=== PATIENT | male | born 1970 | race Caucasian/White ===

== ENCOUNTER 2023-08-28 16:21 | Outpatient (OUT) | payer BC, SELFPAY ==
--- NOTE | 2023-08-28 | XR_ITS ---
The [address] [address] Patient Name: NARENDRA MEDEROS MRN: [id number] date: 1970 Sex: M Assigned Patient Location: LAB Current Patient Location: LAB Accession/Order Number: [id number] Exam Date: 08/28/2023 17:12 Report Date: 08/28/2023 17:45 At the request of: SHALONDA CARLOS Procedure: XR chest 2V EXAM: XR chest 2V HISTORY: asthma . Acute dyspnea. COMPARISON: 03/01/2023 TECHNIQUE: Upright PA and lateral chest x-ray FINDINGS: The heart is not enlarged and the vasculature is not distended. No acute infiltrate, effusion or pneumothorax is identified. The osseous structures are grossly intact. XR/XR chest 2V IMPRESSION: No acute infiltrate or evidence of cardiac decompensation. The overall appearance of the chest is essentially unchanged. Electronically authenticated by: HERMES SNYDER Date: 08/28/2023 17:45
[2023-08-28 16:49] LABS: Basophils Absolute Auto 0.1 10^3/uL (0.0-0.1); Basophils Percent Auto 0.6 % (0.2-2.0); Eosinophils Absolute Auto 0.1 10^3/uL (0.0-0.7); Hematocrit 48.9 % (42.0-54.0); Hemoglobin 16.1 g/dL (14.0-18.0); Immature Granulocytes Abs Auto 0.02 10^3/uL (0.00-0.03); Immature Granulocytes Pct Auto 0.2 % (0.0-0.5); Lymphocytes Absolute Auto 0.9 10^3/uL (1.2-3.8); Lymphocytes Percent Auto 8.6 % (20.5-60.0); Mean Corpuscular HGB Conc 32.9 g/dL (29.9-35.2); Mean Corpuscular Hemoglobin 31.4 pg (25.9-34.0); Mean Corpuscular Volume 95.3 fL (80.0-94.0); Monocytes Absolute Auto 0.4 10^3/uL (0.3-0.8); Monocytes Percent Auto 3.7 % (1.7-12.0); Neutrophils Absolute Auto 8.5 10^3/uL (1.4-6.5); Neutrophils Percent Auto 85.9 % (43.0-75.0); Platelet Count 340 10^3/uL (150-450); Red Blood Count 5.13 10^6/uL (4.70-6.10); Red Cell Distribution Width 12.4 % (11.0-15.0); White Blood Count 9.9 10^3/uL (4.0-11.0)
[2023-08-28 16:50] LABS: Bilirubin Urine NEGATIVE (NEGATIVE); Blood Urine NEGATIVE (NEGATIVE); Clarity Urine CLEAR (CLEAR); Color Urine YELLOW (YELLOW); Glucose Urine UA NEGATIVE (NEGATIVE); Ketones Urine TRACE mg/dL (NEGATIVE); Leukocyte Esterase Urine NEGATIVE (NEGATIVE); Nitrite Urine NEGATIVE (NEGATIVE); Protein Urine NEGATIVE (NEG/TRACE); Urobilinogen Urine 0.2 EU/dL (0.2-1.0)
[2023-08-28 17:25] LABS: Alanine Aminotransferase 46 U/L (16-63); Albumin Globulin Ratio 1.1; Alkaline Phosphatase 74 U/L (46-116); Amylase 41 U/L (25-115); Aspartate Amino Transferase 23 U/L (15-37); Bilirubin Total 0.2 mg/dL (0.2-1.0); Calcium 9.1 mg/dL (8.5-10.1); Carbon Dioxide 29.1 mmol/L (21.0-32.0); Chloride 103 mmol/L (98-107); Estimated GFR (African America >60 (>=60); Estimated GFR (Non-African Ame >60 (>=60); Globulin 3.5 g/dL; Glucose 116 mg/dL (74-106); Potassium 4.1 mmol/L (3.5-5.1); Sodium 139 mmol/L (136-145); Total Protein 7.5 g/dL (6.4-8.2)
[2023-08-28 17:29] LABS: Bacteria Urine NONE SEEN #/HPF (NONE SEEN); Mucus Urine TRACE (NONE SEEN); WBC Urine NONE SEEN #/HPF (NONE SEEN)
[2023-08-28 17:30] LABS: Cast Seen? NONE SEEN #/LPF (NONE SEEN); Crystals Seen? None Seen #/HPF (None Seen); RBC Urine 0-2 #/HPF (0-2); Squamous Epithelial Cell Urine NONE SEEN #/LPF (NONE/RARE)
== END 2023-08-28 16:22 | disposition home or self-care (01) ==
PROVIDERS: PCP Family Medicine; Visit Provider Family Medicine
DX: J45.909 Unspecified asthma, uncomplicated (principal); R10.9 Unspecified abdominal pain
CPT/HCPCS: 36415; 71046; 80053; 81001; 82150; 83690; 85025; 87086

== ENCOUNTER 2023-08-29 16:40 | Outpatient (OUT) | payer BC, SELFPAY ==
[2023-09-01 11:08] LABS: H. pylori Stool Ag, EIA Negative (Negative)
== END 2023-08-29 16:41 | disposition home or self-care (01) ==
LOC: LAB 16:40
PROVIDERS: PCP Family Medicine; Visit Provider Family Medicine
DX: J45.909 Unspecified asthma, uncomplicated (principal); R10.9 Unspecified abdominal pain
CPT/HCPCS: 87338

== ENCOUNTER 2024-09-24 10:56 | Outpatient (OUT) | payer BC, SELFPAY ==
--- NOTE | 2024-09-24 11:28 | XR_ITS ---
The [address] [address] Patient Name: KAIT MEDEROS MRN: [id number] date: 1970 Sex: M Assigned Patient Location: [facility] Current Patient Location: Accession/Order Number: [id number] Exam Date: 09/24/2024 11:20 Report Date: 09/25/2024 07:52 At the request of: JOAN PAINTER Procedure: XR chest 2V EXAMINATION: XR chest 2V HISTORY: Bronchitis J40 COMPARISON: 08/28/2023 TECHNIQUE: PA and lateral FINDINGS: LUNGS: No significant pulmonary parenchymal abnormalities. VASCULATURE: No increased pulmonary vasculature. PLEURA: No pneumothorax, effusion, or pleural thickening. CARDIAC: No cardiomegaly or cardiac silhouette abnormality. MEDIASTINUM: No visible mass or adenopathy. BONES: No fracture or visible bone lesion. OTHER: Negative. XR/XR chest 2V IMPRESSION: No acute cardiopulmonary process Electronically authenticated by: QUOC OWENS Date: 09/25/2024 07:52
== END 2024-09-24 10:57 | disposition home or self-care (01) ==
LOC: RAD 10:59
PROVIDERS: PCP Family Medicine; Visit Provider Nurse Practitioner Family
DX: J40 Bronchitis, not specified as acute or chronic (principal)
CPT/HCPCS: 71046

== ENCOUNTER 2024-10-09 20:11 | Emergency (ER) | payer BC, SELFPAY ==
[2024-10-09 20:16] VITALS: BP 140/72; PULSE 106; TEMP 36.7; O2SAT 98; BMI 26.9
--- OUTSIDE RECORDS SUMMARY | 2024-10-09 20:31 | XMS_ITS | CCD ---
Author Organization [facility] Care Team Providers Care Supervisor [employer] Name Role Phone TERRANCE ., DR LIZ Primary Care Unavailable HOY ., DR LIZ Consulting Unavailable HOY ., DR LIZ Attending Unavailable HOY ., DR LIZ Admitting Unavailable ALYSSA ., LEIF Consulting Unavailable SUBHA, ALEKSANDR Consulting Unavailable KLQUOC MCCALL Consulting Unavailable HOY ., DR LIZ Primary Care Unavailable HOY ., DR LIZ Consulting Unavailable HOY ., DR LIZ Attending Unavailable HOY ., DR LIZ Admitting Unavailable WEST, DR QUOC Oh Consulting Unavailable MARKER ., DR MALHOTRA Admitting Unavailable MARKER ., DR MALHOTRA Consulting Unavailable MARKER ., DR MALHOTRA Attending Unavailable HOY ., DR LIZ Primary Care Unavailable UNLU, EDMUNDO Consulting Unavailable SUBHA, ALEKSANDR Admitting Unavailable SUBHA, ALEKSANDR Consulting Unavailable SUBHAALEKSANDR Attending Unavailable HOY ., DR LIZ Primary Care Unavailable QUOC MALDONADO Consulting Unavailable Allergies Allergy Classification Reported Allergen(s) Allergy Type Date of Onset Reaction(s) Facility (1 source) Erythromycin Drug Allergy 4 [facility] Repository (1 source) Oxytetracycline Drug Allergy 4 [facility] Problems Active Problems Problem Classification Problem Date Documented Date Episodic/Chronic Asthma (1 source) Unspecified asthma, uncomplicated; Translations: [UNSPECIFIED ASTHMA UNCOMPLICATED] Onset: 11-15-2022 Chronic Attention-deficit, conduct, and disruptive behavior disorders (1 source) Attention-deficit hyperactivity disorder, unspecified type; Translations: [ADHD UNSPECIFIED TYPE] Onset: 11-15-2022 Chronic Substance-related disorders (1 source) Nicotine dependence, chewing tobacco, uncomplicated; Translations: [NICOTINE DEPEND CHEW TOBACCO UNCOMP] Onset: 11-15-2022 Chronic Unclassified (1 source) CONTACT W/AND (SUSP) EXPOS COVID-19; Translations: [CONTACT W/AND (SUSP) EXPOS COVID-19] Onset: 11-15-2022 Unclassified (3 sources) LOW BACK PAIN, UNSPECIFIED; Translations: [LOW BACK PAIN, UNSPECIFIED] Onset: 04-20-2022 Past or Other Problems Problem Classification Problem Date Documented Da te Episodic/Chronic Acute bronchitis (1 source) Acute bronchitis, unspecified; Translations: [ACUTE BRONCHITIS UNSPECIFIED] Onset: 11-15-2022 Episodic Other aftercare (1 source) Other rn long term care (current) drug therapy; Translations: [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] Onset: 11-15-2022 Episodic Other lower respiratory disease (3 sources) Shortness of breath; Translations: [SHORTNESS OF BREATH] Onset: 11-11-2022 Episodic Screening and history of mental health and substance abuse codes (1 source) Personal history of nicotine dependence; Translations: [PERSONAL HISTORY OF NICOTINE DEPEND] Onset: 04-07-2022 Episodic Unclassified (1 source) LOW BACK PAIN, UNSPECIFIED; Translations: [LOW BACK PAIN, UNSPECIFIED] Onset: 04-14-2022 Results Test Name Value Interpretation Reference Range Facility BNPon 03-02-2023 Natriuretic peptide B (Bld) [Mass/Vol] 8.0 pg/mL Normal <=900.0 [facility] Comment on above: Performed By: #### B REVIEW ENGINEER, HSTROPN, BMP #### [facility] [address] [place] [address] Dr. Celeste Art CBC AUTO DIFFon 03-02-2023 BASO # 0.1 103/ul Normal 0.0-0.1 [facility] Comment on above: Performed By: #### C BC #### [facility] [address] [place] [address] Dr. Celeste Art Basophils/100 WBC (Bld) 1.1 % Normal 0.2-2.0 [facility] Comment on above: Performed By: #### C BC #### [facility] [address] [place] [address] Dr. Celeste Art EO # 0.8 103/ul Critically high 0.0-0.7 [facility] Comment on above: Performed By: #### C BC #### [facility] [address] [place] [address] Dr. Celeste Art Eosinophils/100 WBC (Bld) 10.8 % Critically high 0.9-7.0 [facility] Comment on above: Performed By: #### C BC #### [facility] [address] [place] [address] Dr. Celeste Art Erythrocyte distribution width (RBC) [Ratio] 12.4 % Normal 11.0-15.0 [facility] Comment on above: Performed By: #### C BC #### [facility] [address] [place] [address] Dr. Celeste Art Hematocrit (Bld) [Volume fraction] 44.5 % Normal 42.0-54.0 [facility] Comment on above: Performed By: #### C BC #### [facility] [address] [place] [address] Dr. Celeste Art Hemoglobin (Bld) [Mass/Vol] 14.7 g/dL Normal 14.0-18.0 [facility] Comment on above: Performed By: #### C BC #### [facility] [address] [place] [address] Dr. Celeste Art IG # 0.01 10e3/ul Normal 0.00-0.03 [facility] Comment on above: Performed By: #### C BC #### [facility] [address] [place] [address] Dr. Celeste Art IG % 0.1 % Normal 0.0-0.5 [facility] Comment on above: Performed By: #### C BC #### [facility] [address] [place] [address] Dr. Celeste Art LYMPH # 3.4 103/ul Normal 1.2-3.8 [facility] Comment on above: Performed By: #### C BC #### [facility] [address] [place] [address] Dr. Celeste Art Lymphocytes/100 WBC (Bld) 45.3 % Normal 20.5-60.0 [facility] Comment on above: Performed By: #### C BC #### [facility] [address] [place] [address] Dr. Celeste Art MANUAL DIFF REQ NO Normal [facility] Comment on above: Performed By: #### C BC #### [facility] [address] [place] [address] Dr. Celeste Art MCH (RBC) [Entitic mass] 30.6 pg Normal 25.9-34.0 [facility] Comment on above: Performed By: #### C BC #### [facility] [address] [place] [address] Dr. Celeste Art MCHC (RBC) [Mass/Vol] 33.0 g/dL Normal 29.9-35.2 [facility] Comment on above: Performed By: #### C BC #### [facility] [address] [place] [address] Dr. Celeste Art MCV (RBC) [Entitic vol] 92.7 fL Normal 80.0-94.0 [facility] Comment on above: Performed By: #### C BC #### [facility] [address] [place] [address] Dr. Celeste Art MONO # 0.6 103/ul Normal 0.3-0.8 [facility] Comment on above: Performed By: #### C BC #### [facility] [address] [place] [address] Dr. Celeste Art Monocytes/100 WBC (Bld) 8.5 % Normal 1.7-12.0 [facility] Comment on above: Performed By: #### C BC #### [facility] [address] [place] [address] Dr. Celeste Art NEUT # 2.5 103/ul Normal 1.4-6.5 [facility] Comment on above: Performed By: #### C BC #### [facility] [address] [place] [address] Dr. Celeste Art Neutrophils/100 WBC (Bld) 34.2 % Critically low 43.0-75.0 [facility] Comment on above: Performed By: #### C BC #### [facility] [address] [place] [address] Dr. Celeste Art Platelet mean volume (Bld) [Entitic vol] 8.6 fL Critically low 9.5-13.5 [facility] Comment on above: Performed By: #### C BC #### [facility] [address] [place] [address] Dr. Celeste Art PLT 274 103/ul Normal 150-450 [facility] Comment on above: Performed By: #### C BC #### [facility] [address] [place] [address] Dr. Celeste Art RBC 4.80 106/ul Normal 4.70-6.10 [facility] Comment on above: Performed By: #### C BC #### [facility] [address] [place] [address] Dr. Celeste Art WBC 7.4 103/ul Normal 4.0-11.0 [facility] Comment on above: Performed By: #### C BC #### [facility] [address] [place] [address] Dr. Celeste Art PROF CHEM 8 (BAS METB)on Anion gap [Moles/Vol] 11.8 mmol/L Normal [facility] Comment on above: Performed By: #### B REVIEW ENGINEER HSTROPEmperatriz BMP #### [facility] [address] [place] [address] Dr. Celeste Art Calcium [Mass/Vol] 8.4 mg/dL Critically low 8.5-10.1 [facility] Comment on above: Performed By: #### B REVIEW ENGINEER, HSTROPN, BMP #### [facility] [address] [place] [address] Dr. Celeste Art Chloride [Moles/Vol] 107 mmol/L Normal 98-107 [facility] Comment on above: Performed By: #### B REVIEW ENGINEER HSTROPN, BMP #### [facility] [address] [place] [address] Dr. Celeste Art CO2 [Moles/Vol] 27.7 mmol/L Normal 21.0-32.0 [facility] Comment on above: Performed By: #### B REVIEW ENGINEER, HSTROPN, BMP #### [facility] [address] [address] [address] Celeste Art Creatinine [Mass/Vol] 0.99 mg/dL Normal 0.70-1.30 [facility] Comment on above: Performed By: #### B REVIEW ENGINEER, HSTROPN, BMP #### [facility] [address] [place] [address] Dr. Celeste Art EGFR-AF ETHIOPIAN >60 Normal >=60 [facility] Comment on above: Performed By: #### B REVIEW ENGINEER, HSTROPN, BMP #### [facility] [address] [place] [address] Dr. Celeste Art EGFR-NON AF ETHIOPIAN >60 Normal >=60 [facility] Comment on above: Performed By: #### B REVIEW ENGINEER, HSTROPN, BMP #### [facility] [address] [place] [address] Dr. Celeste Art Glucose [Mass/Vol] 104 mg/dL Normal 74-106 [facility] Comment on above: Performed By: #### B REVIEW ENGINEER, HSTROPN, BMP #### [facility] [address] [place] [address] Dr. Celeste Art Potassium [Moles/Vol] 3.5 mmol/L Normal 3.5-5.1 [facility] Comment on above: Performed By: #### B REVIEW ENGINEER, HSTROPN, BMP #### [facility] [address] [place] [address] Dr. Celeste Art Sodium [Moles/Vol] 143 mmol/L Normal 136-145 [facility] Comment on above: Performed By: #### B REVIEW ENGINEER, HSTROPN, BMP #### [facility] [address] [place] [address] Dr. Celeste Art Urea nitrogen [Mass/Vol] 14.0 mg/dL Normal 7.0-18.0 [facility] Comment on above: Performed By: #### B REVIEW ENGINEER, HSTROPN, BMP #### [facility] [address] [place] [address] Dr. Celeste Art Urea nitrogen/Creatinine [Mass ratio] 14.1 mg/mg Normal [facility] Comment on above: Performed By: #### B REVIEW ENGINEER, HSTROPN, BMP #### [facility] [address] [address] [address] Celeste Art TROPONIN, HIGH SENSITIVITYon 03-02-2023 HSTROP 5.1 pg/mL Normal 4.0-76.1 [facility] Comment on above: Result Comment: CUT- OFF POINTS HAVE BEEN ESTABLISHED BASED ON THE FOURTH UNIVERSAL DEFINITIONS OF MYOCARDIAL INFARCTION. THE UPPER REFERENCE LIMIT (URL) OF TROPONIN, DEFINED THE 99TH PERCENTILE OF cTnI DISTRIBUTION IN A REFERENCE POPULATION, HAS BEEN CONFIRMED THE DECISION THRESHOLD FOR IN DIAGNOSIS. Performed By: #### B REVIEW ENGINEER, HSTROPN, BMP #### [facility] [address] [place] [address] Dr. Celeste Art XR CHEST 2 Von 03-02-2023 XR CHEST 2 V EXAM: XR CHEST 2 V HISTORY: COUGH COMPARISON: None. TECHNIQUE: PA and lateral views of the chest FINDINGS: There is no focal airspace consolidation or infiltrate. The cardiomediastinal silhouette is not enlarged. No evidence of pleural effusion or pneumothorax are identified. No acute osseous abnormality. IMPRESSION: No acute cardiopulmonary process. Electronically authenticated by: EDMUNDO UNLU Date: 2023-03-01 22:45 Normal [facility] CBC AUTO DIFFon 11-11-2022 BASO # 0.1 103/ul Normal 0.0-0.1 [facility] Comment on above: Performed By: #### C BC #### [facility] [address] [address] [address] Celeste Art Basophils/100 WBC (Bld) 1.2 % Normal 0.2-2.0 [facility] Comment on above: Performed By: #### C BC #### [facility] [address] [address] [address] Celeste Art EO # 1.0 103/ul Critically high 0.0-0.7 [facility] Comment on above: Performed By: #### C BC #### [facility] [address] [address] [address] Celeste Art Eosinophils/100 WBC (Bld) 13.1 % Critically high 0.9-7.0 [facility] Comment on above: Performed By: #### C BC #### [facility] [address] [place] [address] Dr. Celeste Art Erythrocyte distribution width (RBC) [Ratio] 12.7 % Normal 11.0-15.0 [facility] Comment on above: Performed By: #### C BC #### [facility] [address] [place] [address] Dr. Celeste Art Hematocrit (Bld) [Volume fraction] 40.9 % Critically low 42.0-54.0 [facility] Comment on above: Performed By: #### C BC #### [facility] [address] [place] [address] Dr. Celeste Art Hemoglobin (Bld) [Mass/Vol] 14.4 g/dL Normal 14.0-18.0 [facility] Comment on above: Performed By: #### C BC #### [facility] [address] [place] [address] Dr. Celeste Art IG # 0.01 10e3/ul Normal 0.00-0.03 [facility] Comment on above: Performed By: #### C BC #### [facility] [address] [place] [address] Dr. Celeste Art IG % 0.1 % Normal 0.0-0.5 [facility] Comment on above: Performed By: #### C BC #### [facility] [address] [place] [address] Dr. Celeste Art LYMPH # 2.8 103/ul Normal 1.2-3.8 [facility] Comment on above: Performed By: #### C BC #### [facility] [address] [place] [address] Dr. Celeste Art Lymphocytes/100 WBC (Bld) 36.4 % Normal 20.5-60.0 [facility] Comment on above: Performed By: #### C BC #### [facility] [address] [place] [address] Dr. Celeste Art MANUAL DIFF REQ NO Normal [facility] Comment on above: Performed By: #### C BC #### [facility] [address] [place] [address] Dr. Celeste Art MCH (RBC) [Entitic mass] 30.4 pg Normal 25.9-34.0 [facility] Comment on above: Performed By: #### C BC #### [facility] [address] [place] [address] Dr. Celeste Atr MCHC (RBC) [Mass/Vol] 35.2 g/dL Normal 29.9-35.2 [facility] Comment on above: Performed By: #### C BC #### [facility] [address] [place] [address] Dr. Celeste Art MCV (RBC) [Entitic vol] 86.5 fL Normal 80.0-94.0 [facility] Comment on above: Performed By: #### C BC #### [facility] [address] [place] [address] Dr. Celeste Art MONO # 0.8 103/ul Normal 0.3-0.8 [facility] Comment on above: Performed By: #### C BC #### [facility] [address] [place] [address] Dr. Celeste Art Monocytes/100 WBC (Bld) 10.1 % Normal 1.7-12.0 [facility] Comment on above: Performed By: #### C BC #### [facility] [address] [place] [address] Dr. Celeste Art NEUT # 3.0 103/ul Normal 1.4-6.5 [facility] Comment on above: Performed By: #### C BC #### [facility] [address] [place] [address] Dr. Celeste Art Neutrophils/100 WBC (Bld) 39.1 % Critically low 43.0-75.0 [facility] Comment on above: Performed By: #### C BC #### [facility] [address] [place] [address] Dr. Celeste Art Platelet mean volume (Bld) [Entitic vol] 8.5 fL Critically low 9.5-13.5 [facility] Comment on above: Performed By: #### C BC #### [facility] [address] [address] [address] Celeste Art PLT 296 103/ul Normal 150-450 [facility] Comment on above: Performed By: #### C BC #### [facility] [address] [address] [address] Celeste Art RBC 4.73 106/ul Normal 4.70-6.10 [facility] Comment on above: Performed By: #### C BC #### [facility] [address] [id number] Celeste Art WBC 7.7 103/ul Normal 4.0-11.0 [facility] Comment on above: Performed By: #### C BC #### [facility] [address] [place] [address] Dr. Celeste Art [facility]17 SARS-CoV-2 (COVID-19) RNA KONSTANTIN+probe Ql (Unsp spec) Not detected Normal NOT DETECTED [facility] Comment on above: Result Comment: When diagnostic testing is negative, the possibility of a false negative should be considered in the context of a patient's recent exposures and the presence of clinical signs and symptoms consistent with SARS-CoV-2. This test is not yet approved or cleared by the [place] FDA. When there are no FDA-approved or cleared tests available, and other criteria are met, FDA can make tests available under an emergency access mechanism called an Emergency Use Authorization (EUA). The EUA for this test is supported by the [place] of Health and Human Service's declaration that circumstances exist to justify the emergency use of in vitro diagnostics for the detection and/or diagnosis of the virus that causes COVID-19. This EUA will remain in effect for the duration of the COVID-19 declaration justifying emergency of IVDs, unless it is terminated or revoked by the FDA (after which the test may no longer be used). Performed By: #### C XSPTUM #### [facility] [address] [place] [address] Dr. Celeste Art INFLUENZA A AND B AGon 11-11 INFLUENZA A AG Negative Normal NEGATIVE SEE COMMENT [facility] Comment on above: Performed By: #### C BC #### [facility] [address] [place] [address] Dr. Celeste Art INFLUENZA B AG Negative Normal NEGATIVE SEE COMMENT [facility] Comment on above: Performed By: #### C BC #### [facility] [address] [place] [address] Dr. Celeste Art LACTATE/LACTIC ACIDon 2022 Lactate [Moles/Vol] 1.1 mmol/L Normal 0.4-1.9 [facility] Comment on above: Performed By: #### C XSPTUM #### [facility] [address] [place] [address] Dr. Celeste Art PROF CHEM 8 (BAS METB)on Anion gap [Moles/Vol] 11.9 mmol/L Normal [facility] Comment on above: Performed By: #### C XSPTUM #### [facility] [address] [place] [address] Dr. Celeste Art Calcium [Mass/Vol] 8.7 mg/dL Normal 8.5-10.1 [facility] Comment on above: Performed By: #### C XSPTUM #### [facility] [address] [place] [address] Dr. Celeste Art Chloride [Moles/Vol] 107 mmol/L Normal 98-107 [facility] Comment on above: Performed By: #### C XSPTUM #### [facility] [address] [place] [address] Dr. Celeste Art CO2 [Moles/Vol] 25.9 mmol/L Normal 21.0-32.0 [facility] Comment on above: Performed By: #### C XSPTUM #### [facility] [address] [place] [address] Dr. Celeste Art Creatinine [Mass/Vol] 0.85 mg/dL Normal 0.70-1.30 [facility] Comment on above: Performed By: #### C XSPTUM #### [facility] [address] [place] [address] Dr. Celeste Art EGFR-AF ETHIOPIAN >60 Normal >=60 [facility] Comment on above: Performed By: #### C XSPTUM #### [facility] [address] [place] [address] Dr. Celeste Art EGFR-NON AF ETHIOPIAN >60 Normal >=60 [facility] Comment on above: Performed By: #### C XSPTUM #### [facility] [address] [place] [address] Dr. Celeste Art Glucose [Mass/Vol] 88 mg/dL Normal 74-106 [facility] Comment on above: Performed By: #### C XSPTUM #### [facility] [address] [place] [address] Dr. Celeste Art Potassium [Moles/Vol] 3.8 mmol/L Normal 3.5-5.1 [facility] Comment on above: Performed By: #### C XSPTUM #### [facility] [address] [place] [address] Dr. Celeste Art Sodium [Moles/Vol] 141 mmol/L Normal 136-145 [facility] Comment on above: Performed By: #### C XSPTUM #### [facility] [address] [place] [address] Dr. Celeste Art Urea nitrogen [Mass/Vol] 14.0 mg/dL Normal 7.0-18.0 [facility] Comment on above: Performed By: #### C XSPTUM #### [facility] [address] [place] [address] Dr. Celeste Art Urea nitrogen/Creatinine [Mass ratio] 16.5 mg/mg Normal [facility] Comment on above: Performed By: #### C XSPTUM #### [facility] [address] [place] [address] Dr. Celeste Art RSVon 11-11-2022 RSV AG Negative Normal NEGATIVE [facility] Comment on above: Performed By: #### C BC #### [facility] [address] [place] [address] Dr. Celeste Art XR CHEST 2 Von 11-11-2022 XR CHEST 2 V EXAMINATION: XR CHES T 2 V HISTORY: Cough COMPARISON: Chest x-ray 04/03/2022 are not available for interpretation TECHNIQUE: Portable chest FINDINGS: The lung parenchyma is free of consolidation or infiltrate. No pneumothorax or pleural effusion. The cardiac, mediastinal and hilar contours are normal. The visualized osseous structures exhibit no gross abnormality. IMPRESSION: No acute cardiopulmonary abnormality. Electronically authenticated by: QUOC MALDONADO Date: 2022-11-11 21:51 Normal [facility] MRI LSPINE WO CONon 04-14-20 22 MRI LSPINE WO CON EXAMINATION: MRI LSPINE WO CON HISTORY: Low back pain COMPARISON: No relevant comparison available. TECHNIQUE: A variety of imaging planes and parameters were utilized for visualization of suspected pathology. FINDINGS: For the purposes of numbering, sagittal T2 image # 8 extends from the T11 vertebral body superiorly to the S3 level inferiorly. PARASPINAL AREA: Normal with no visible mass. BONES: Normal alignment with no acute fracture or spondylolisthesis. No bone edema. CORD/CAUDA EQUINA: Normal caliber, contour, and signal intensity. DISC LEVELS: 12-L1: No significant disc/facet abnormality, spinal stenosis, or foraminal stenosis. L1-L2: Early degenerative disc disease is present without focal protrusion or neural impingement. L2-L3: Moderate disc space narrowing and disc desiccation. Mild posterior broad-based disc protrusion extending up to 2.5 mm. Moderate ligamentum flavum hypertrophy. Mild facet osteoarthropathy. No central or foraminal stenosis L3-L4: Early degenerative disc disease is present without focal protrusion or neural impingement. L4-L5: No significant disc/facet abnormality, spinal stenosis, or foraminal stenosis. L5-S1: Left foraminal disc/osteophyte complex extending posteriorly up to 3.2 mm best seen on sagittal image #5. No central canal or right foraminal stenosis. Mild narrowing of the left neural foramen best seen on sagittal image 4 IMPRESSION: Discogenic changes most significant at L2-L3 and L5-S1 as detailed above. Mild narrowing of the left L5-S1 neural foramen Electronically authenticated by: QUOC OWENS Date: 2022-04-14 20:46 Normal [facility] SPUTUM CULTUREon 04-08-2022 Epithelial cells LM Ql (Urine sed) Few Normal [facility] Comment on above: Performed By: #### C XSPTUM #### [facility] [address] [place] [address] Dr. Celeste Art Gram Stain Evaluation Comment Normal [facility] Comment on above: Result Comment: This specimen is of good quality and is acceptable for routine bacterial culture. Performed By: #### C XSPTUM #### [facility] [address] [place] [address] Dr. Celeste Art Lower Respiratory Culture Final report Normal [facility] Comment on above: Performed By: #### C XSPTUM #### [facility] [address] [place] [address] Dr. Celeste Art Result 1 Comment Normal [facility] Comment on above: Result Comment: Few gram positive cocci Performed By: #### C XSPTUM #### [facility] [address] [place] [address] Dr. Celeste Art Result Comment: Rout ine respiratory dragan Result 2 Comment Normal [facility] Comment on above: Result Comment: Few gram variable cocci Performed By: #### C XSPTUM #### [facility] [address] [place] [address] Dr. Celeste Art Result 3 Comment Normal [facility] Comment on above: Result Comment: Few gram negative rods. Performed By: #### C XSPTUM #### [facility] [address] [place] [address] Dr. Celeste Art Result 4 Normal [facility] Comment on above: Performed By: #### C XSPTUM #### [facility] [address] [place] [address] Dr. Celeste Art White Blood Cells Few Normal [facility] Comment on above: Performed By: #### C XSPTUM #### [facility] [address] [place] [address] Dr. Celeste Art CBC AUTO DIFFon 04-05-2022 BASO # 0.0 103/ul Normal 0.0-0.1 [facility] Comment on above: Performed By: #### C XSPTUM #### [facility] [address] [place] [address] Dr. Celeste Art Basophils/100 WBC (Bld) 0.1 % Critically low 0.2-2.0 [facility] Comment on above: Performed By: #### C XSPTUM #### [facility] [address] [place] [address] Dr. Celeste Art EO # 0.0 103/ul Normal 0.0-0.7 [facility] Comment on above: Performed By: #### C XSPTUM #### [facility] [address] [place] [address] Dr. Celeste Art Eosinophils/100 WBC (Bld) 0.0 % Critically low 0.9-7.0 [facility] Comment on above: Performed By: #### C XSPTUM #### [facility] [address] [place] [address] Dr. Celeste Art Erythrocyte distribution width (RBC) [Ratio] 12.4 % Normal 11.0-15.0 [facility] Comment on above: Performed By: #### C XSPTUM #### [facility] [address] [place] [address] Dr. Celeste Art Hematocrit (Bld) [Volume fraction] 44.2 % Normal 42.0-54.0 [facility] Comment on above: Performed By: #### C XSPTUM #### [facility] [address] [place] [address] Dr. Celeste Art Hemoglobin (Bld) [Mass/Vol] 14.6 g/dL Normal 14.0-18.0 [facility] Comment on above: Performed By: #### C XSPTUM #### [facility] [address] [place] [address] Dr. Celeste Art IG # 0.19 10e3/ul Critically high 0.00-0.03 [facility] Comment on above: Performed By: #### C XSPTUM #### [facility] [address] [place] [address] Dr. Celeste Art IG % 1.0 % Critically high 0.0-0.5 [facility] Comment on above: Performed By: #### C XSPTUM #### [facility] [address] [address] [address] Celeste Art LYMPH # 0.8 103/ul Critically low 1.2-3.8 [facility] Comment on above: Performed By: #### C XSPTUM #### [facility] [address] [place] [address] Dr. Celeste Art Lymphocytes/100 WBC (Bld) 3.9 % Critically low 20.5-60.0 [facility] Comment on above: Performed By: #### C XSPTUM #### [facility] [address] [place] [address] Dr. Celeste Art MANUAL DIFF REQ NO Normal [facility] Comment on above: Performed By: #### C XSPTUM #### [facility] [address] [place] [address] Dr. Celeste Art MCH (RBC) [Entitic mass] 30.7 pg Normal 25.9-34.0 [facility] Comment on above: Performed By: #### C XSPTUM #### [facility] [address] [place] [address] Dr. Celeste Art MCHC (RBC) [Mass/Vol] 33.0 g/dL Normal 29.9-35.2 [facility] Comment on above: Performed By: #### C XSPTUM #### [facility] [address] [place] [address] Dr. Celeste Art MCV (RBC) [Entitic vol] 92.9 fL Normal 80.0-94.0 [facility] Comment on above: Performed By: #### C XSPTUM #### [facility] [address] [place] [address] Dr. Celeste Art MONO # 0.5 103/ul Normal 0.3-0.8 [facility] Comment on above: Performed By: #### C XSPTUM #### [facility] [address] [place] [address] Dr. Celeste Art Monocytes/100 WBC (Bld) 2.4 % Normal 1.7-12.0 [facility] Comment on above: Performed By: #### C XSPTUM #### [facility] [address] [address] [address] Celeste Art NEUT # 18.3 103/ul Critically high 1.4-6.5 [facility] Comment on above: Performed By: #### C XSPTUM #### [facility] [address] [place] [address] Dr. Celeste Art Neutrophils/100 WBC (Bld) 92.6 % Critically high 43.0-75.0 [facility] Comment on above: Performed By: #### C XSPTUM #### [facility] [address] [address] [address] Celeste Art Platelet mean volume (Bld) [Entitic vol] 9.0 fL Critically low 9.5-13.5 [facility] Comment on above: Performed By: #### C XSPTUM #### [facility] [address] [place] [address] Dr. Celeste Art PLT 368 103/ul Normal 150-450 [facility] Comment on above: Performed By: #### C XSPTUM #### [facility] [address] [place] [address] Dr. Celeste Art RBC 4.76 106/ul Normal 4.70-6.10 [facility] Comment on above: Performed By: #### C XSPTUM #### [facility] [address] [place] [address] Dr. Celeste Art WBC 19.7 103/ul Critically high 4.0-11.0 [facility] Comment on above: Performed By: #### C XSPTUM #### [facility] [address] [place] [address] Dr. Celeste Art PROF 14(COMP METB)on 022 Albumin [Mass/Vol] 3.3 g/dL Critically low 3.4-5.0 [facility] Comment on above: Performed By: #### C XSPTUM #### [facility] [address] [place] [address] Dr. Celeste Art Albumin/Globulin [Mass ratio] 1.1 {ratio} Normal [facility] Comment on above: Performed By: #### C XSPTUM #### [facility] [address] [address] [address] Celeste Art ALP [Catalytic activity/Vol] 71 U/L Normal 46-116 [facility] Comment on above: Performed By: #### C XSPTUM #### [facility] [address] [address] [address] Celeste Art ALT [Catalytic activity/Vol] 41 U/L Normal 16-63 [facility] Comment on above: Performed By: #### C XSPTUM #### [facility] [address] [address] [address] Celeste Art Anion gap [Moles/Vol] 13.7 mmol/L Normal [facility] Comment on above: Performed By: #### C XSPTUM #### [facility] [address] [place] [address] Dr. Celeste Art AST [Catalytic activity/Vol] 14 U/L Critically low 15-37 [facility] Comment on above: Performed By: #### C XSPTUM #### [facility] [address] [address] [address] Celeste Art Bilirubin [Mass/Vol] 0.2 mg/dL Normal 0.2-1.0 [facility] Comment on above: Performed By: #### C XSPTUM #### [facility] [address] [address] [address] Celeste Art Calcium [Mass/Vol] 8.8 mg/dL Normal 8.5-10.1 [facility] Comment on above: Performed By: #### C XSPTUM #### [facility] [address] [address] [address] Celeste Art Chloride [Moles/Vol] 107 mmol/L Normal 98-107 [facility] Comment on above: Performed By: #### C XSPTUM #### [facility] [address] [address] [address] Celeste Art CO2 [Moles/Vol] 23.8 mmol/L Normal 21.0-32.0 [facility] Comment on above: Performed By: #### C XSPTUM #### [facility] [address] [address] [address] Celeste Art Creatinine [Mass/Vol] 0.99 mg/dL Normal 0.70-1.30 [facility] Comment on above: Performed By: #### C XSPTUM #### [facility] [address] [place] [address] Dr. Celeste Art EGFR-AF ETHIOPIAN >60 Normal >=60 [facility] Comment on above: Performed By: #### C XSPTUM #### [facility] [address] [address] [address] Celeste Art EGFR-NON AF ETHIOPIAN >60 Normal >=60 [facility] Comment on above: Performed By: #### C XSPTUM #### [facility] [address] [place] [address] Dr. Celeste Art Globulin (S) [Mass/Vol] 3.1 g/dL Normal [facility] Comment on above: Performed By: #### C XSPTUM #### [facility] [address] [place] [address] Dr. Celeste Art Glucose [Mass/Vol] 146 mg/dL Critically high 74-106 [facility] Comment on above: Performed By: #### C XSPTUM #### [facility] [address] [place] [address] Dr. Celeste Art Potassium [Moles/Vol] 4.5 mmol/L Normal 3.5-5.1 [facility] Comment on above: Performed By: #### C XSPTUM #### [facility] [address] [place] [address] Dr. Celeste Art Protein [Mass/Vol] 6.4 g/dL Normal 6.4-8.2 [facility] Comment on above: Performed By: #### C XSPTUM #### [facility] [address] [place] [address] Dr. Celeste Art Sodium [Moles/Vol] 140 mmol/L Normal 136-145 [facility] Comment on above: Performed By: #### C XSPTUM #### [facility] [address] [place] [address] Dr. Celeste Art Urea nitrogen [Mass/Vol] 22.0 mg/dL Critically high 7.0-18.0 [facility] Comment on above: Performed By: #### C XSPTUM #### [facility] [address] [place] [address] Dr. Celeste Art Urea nitrogen/Creatinine [Mass ratio] 22.2 mg/mg Normal [facility] Comment on above: Performed By: #### C XSPTUM #### [facility] [address] [place] [address] Dr. Celeste Art CBC W MANUAL DIFFon 04-04-20 ATYPICAL LYMPH # Normal [facility] Comment on above: Performed By: #### C VIVI #### [facility] [address] [place] [address] Dr. Celeste Art ATYPICAL LYMPH % Normal [facility] Comment on above: Performed By: #### C VIVI #### [facility] [address] [place] [address] Dr. Celeste Art BAND # Normal 0.0-0.3 [facility] Comment on above: Performed By: #### C VIVI #### [facility] [address] [place] [address] Dr. Celeste Art BAND % Normal 0-5 [facility] Comment on above: Performed By: #### C VIVI #### [facility] [address] [place] [address] Dr. Celeste Art BASOM # 0.00 103/ul Normal 0.00-0.10 [facility] Comment on above: Performed By: #### C VIVI #### [facility] [address] [place] [address] Dr. Celeste Art BASOM % 0.0 % Critically low 0.2-2.0 [facility] Comment on above: Performed By: #### C VIVI #### [facility] [address] [place] [address] Dr. Celeste Art BLAST # Normal [facility] Comment on above: Performed By: #### C VIVI #### [facility] [address] [place] [address] Dr. Celeste Art BLAST % Normal [facility] Comment on above: Performed By: #### C VIVI #### [facility] [address] [place] [address] Dr. Celeste Art CORRECTED WBC Normal 4.0-11.0 [facility] Comment on above: Performed By: #### C VIVI #### [facility] [address] [place] [address] Dr. Celeste Art EOS # 0.00 103/ul Normal 0.00-0.70 [facility] Comment on above: Performed By: #### C VIVI #### [facility] [address] [place] [address] Dr. Celeste Art EOS% 0.0 % Critically low 0.9-7.0 [facility] Comment on above: Performed By: #### C VIVI #### [facility] [address] [place] [address] Dr. Celeste Art HCT 45.8 % Normal 42.0-54.0 [facility] Comment on above: Performed By: #### C VIVI #### [facility] [address] [place] [address] Dr. Celeste Art HGB 15.4 g/dl Normal 14.0-18.0 [facility] Comment on above: Performed By: #### C VIVI #### [facility] [address] [place] [address] Dr. Celeste Art LYMPHM # 0.48 103/ul Critically low 1.20-3.80 [facility] Comment on above: Performed By: #### C VIVI #### [facility] [address] [place] [address] Dr. Celeste Art LYMPHM% 6.0 % Critically low 20.5-60.0 [facility] Comment on above: Performed By: #### C VIVI #### [facility] [address] [place] [address] Dr. Celeste Art MCH 30.5 pg Normal 25.9-34.0 [facility] Comment on above: Performed By: #### C VIVI #### [facility] [address] [place] [address] Dr. Celeste Art MCHC 33.6 g/dl Normal 29.9-35.2 [facility] Comment on above: Performed By: #### C BCSHAZIA #### [facility] [address] [place] [address] Dr. Celeste Art MCV 90.7 fL Normal 80.0-94.0 [facility] Comment on above: Performed By: #### C BCSHAZIA #### [facility] [address] [place] [address] Dr. Celeste Art METAMYELOCYTE # Normal [facility] Comment on above: Performed By: #### C VIVI #### [facility] [address] [place] [address] Dr. Celeste Art METAMYELOCYTE % Normal [facility] Comment on above: Performed By: #### C VIVI #### [facility] [address] [place] [address] Dr. Celeste Art MONOM# 0.08 103/ul Critically low 0.30-0.80 [facility] Comment on above: Performed By: #### C VIVI #### [facility] [address] [place] [address] Dr. Celeste Art MONOM% 1.0 % Critically low 1.7-12.0 [facility] Comment on above: Performed By: #### C BCSHAZAI #### [facility] [address] [place] [address] Dr. Celeste Art MPV 8.9 fL Critically low 9.5-13.5 [facility] Comment on above: Performed By: #### C BCMAN #### [facility] [address] [place] [address] Dr. Celeste Art MYELOCYTE # Normal [facility] Comment on above: Performed By: #### C VIVI #### [facility] [address] [place] [address] Dr. Celeste Art MYELOCYTE % Normal [facility] Comment on above: Performed By: #### C LEELEEMAN #### [facility] [address] [address] [address] Celeste Art NRBC Normal [facility] Comment on above: Performed By: #### C VIVI #### [facility] [address] [address] [address] Celeste Art PLT 379 103/ul Normal 150-450 [facility] Comment on above: Performed By: #### C LEELEEMAN #### [facility] [address] [address] [address] Celeste Art RBC 5.05 106/ul Normal 4.70-6.10 [facility] Comment on above: Performed By: #### C VIVI #### [facility] [address] [place] [address] Dr. Celeste Art RDW 12.0 % Normal 11.0-15.0 [facility] Comment on above: Performed By: #### C LEELEEMAN #### [facility] [address] [place] [address] Dr. Celeste Art SEG # 7.44 103/ul Critically high 1.40-6.50 [facility] Comment on above: Performed By: #### C LEELEEMAN #### [facility] [address] [place] [address] Dr. Celeste Art SEG % 93.0 % Critically high 43.0-75.0 [facility] Comment on above: Performed By: #### C VIVI #### [facility] [address] [place] [address] Dr. Celeste Art WBC 8.0 103/ul Normal 4.0-11.0 [facility] Comment on above: Performed By: #### C BCMAN #### [facility] [address] [place] [address] Dr. Celeste Art CRPon 04-04-2022 CRP [Mass/Vol] mg/L Normal <=1.0 [facility] Comment on above: Performed By: #### C MP, CRP #### [facility] [address] [place], [place] [address] LSPINE WO CONon 2 CT LSPINE WO CON EXAM: CT LSPINE WO C ON HISTORY: Pain COMPARISON: Abdomen and pelvic CT 09/14/2021 TECHNIQUE: Axial CT imaging is performed through the lumbar spine. Sagittal and coronal reformatted/reconstruc radha sequences were additionally performed. FINDINGS: Maintenance of the normal lumbar lordosis. Vertebral body heights and alignments exhibit no fracture or listhesis. The intervertebral disc spaces are normal for patient's age. Again demonstrated is the L5-S1 Broad-based central-left far lateral annular bulge with narrowing of the left neural foramina and subarticular recess (axial 7, sagittal 8 and coronal 22). No central canal narrowing. The visualized intra-abdominal structures exhibit no gross abnormality. Mild atherosclerosis of the abdominal aorta. IMPRESSION: L5-S1 central-left far lateral annular bulge with narrowing of the left neural foramina and subarticular recess. Electronically authenticated by: QUOC MALDONADO Date: 2022-04-03 22:54 Normal [facility] Covid-19 PCR (CVDTB)on 03-17 SARS-CoV-2 (COVID-19) RNA KONSTANTIN+probe Ql (Unsp spec) Not detected Normal NOT DETECTED [facility] Comment on above: Result Comment: When diagnostic testing is negative, the possibility of a false negative should be considered in the context of a patient's recent exposures and the presence of clinical signs and symptoms consistent with SARS-CoV-2. This test is not yet approved or cleared by the [place] FDA. When there are no FDA-approved or cleared tests available, and other criteria are met, FDA can make tests available under an emergency access mechanism called an Emergency Use Authorization (EUA). The EUA for this test is supported by the [place] of Health and Human Service's declaration that circumstances exist to justify the emergency use of in vitro diagnostics for the detection and/or diagnosis of the virus that causes COVID-19. This EUA will remain in effect for the duration of the COVID-19 declaration justifying emergency of IVDs, unless it is terminated or revoked by the FDA (after which the test may no longer be used). Performed By: #### C VDTB #### [facility] [address] [place] [address] Dr. Celeste Art ER URINE PROFILEon 2 Bilirubin Ql (U) Negative Normal NEGATIVE [facility] Comment on above: Performed By: #### C XSPTUM #### [facility] [address] [place] [address] Dr. Celeste Art Clarity (U) CLEAR Normal CLEAR [facility] Comment on above: Performed By: #### C XSPTUM #### [facility] [address] [place] [address] Dr. Celeste Art Color (U) LT. YELLOW Normal YELLOW [facility] Comment on above: Performed By: #### C XSPTUM #### [facility] [address] [place] [address] Dr. Celeste BALDWIN A micrscopic examination will be performed if indicated. Normal [facility] Comment on above: Performed By: #### C XSPTUM #### [facility] [address] [place] [address] Dr. Celeste Art Glucose Ql (U) Negative Normal NEGATIVE [facility] Comment on above: Performed By: #### C XSPTUM #### [facility] [address] [place] [address] Dr. Celeste Art Hemoglobin Ql (U) Negative Normal NEGATIVE [facility] Comment on above: Performed By: #### C XSPTUM #### [facility] [address] [place] [address] Dr. Celeste Art Ketones Ql (U) Negative Normal NEGATIVE [facility] Comment on above: Performed By: #### C XSPTUM #### [facility] [address] [place] [address] Dr. Celeste Art LEUKOCYTES Negative Normal NEGATIVE [facility] Comment on above: Performed By: #### C XSPTUM #### [facility] [address] [place] [address] Dr. Celeste Art Nitrite Ql (U) Negative Normal NEGATIVE [facility] Comment on above: Performed By: #### C XSPTUM #### [facility] [address] [place] [address] Dr. Celeste Art pH (U) 6.0 [pH] Normal 5-9 [facility] Comment on above: Performed By: #### C XSPTUM #### [facility] [address] [place] [address] Dr. Celeste Art SPEC GRAVITY 1.020 Normal 1.005-<=1.025 [facility] Comment on above: Performed By: #### C XSPTUM #### [facility] [address] [place] [address] Dr. Celeste Art UA PROTEIN Negative Normal NEGATIVE/ TRACE [facility] Comment on above: Performed By: #### C XSPTUM #### [facility] [address] [place] [address] Dr. Celeste Art UR MICRO IND NOT INDICATED Normal [facility] Comment on above: Performed By: #### C XSPTUM #### [facility] [address] [place] [address] Dr. Celeste Art Urobilinogen Qn (U) 0.2 {Maycol'U}/dL Normal 0.2 - 1. 0 [facility] Comment on above: Performed By: #### C XSPTUM #### [facility] [address] [place] [address] Dr. Celeste Art PROF 14(COMP METB)on 022 Albumin [Mass/Vol] 3.7 g/dL Normal 3.4-5.0 [facility] Comment on above: Performed By: #### C MP, CRP #### [facility] [address] [place] [address] Dr. Celeste Art Albumin/Globulin [Mass ratio] 1.1 {ratio} Normal [facility] Comment on above: Performed By: #### C MP, CRP #### [facility] [address] [place] [address] Dr. Celeste Art ALP [Catalytic activity/Vol] 76 U/L Normal 46-116 [facility] Comment on above: Performed By: #### C MP, CRP #### [facility] [address] [place] [address] Dr. Celeste Art ALT [Catalytic activity/Vol] 53 U/L Normal 16-63 [facility] Comment on above: Performed By: #### C MP, CRP #### [facility] [address] [place] [address] Dr. Celeste Art Anion gap [Moles/Vol] 18.9 mmol/L Normal [facility] Comment on above: Performed By: #### C MP, CRP #### [facility] [address] [address] [address] Celeste Art AST [Catalytic activity/Vol] 20 U/L Normal 15-37 [facility] Comment on above: Performed By: #### C MP, CRP #### [facility] [address] [place] [address] Dr. Celeste Art Bilirubin [Mass/Vol] 0.3 mg/dL Normal 0.2-1.0 [facility] Comment on above: Performed By: #### C MP, CRP #### [facility] [address] [place] [address] Dr. Celeste Art Calcium [Mass/Vol] 9.1 mg/dL Normal 8.5-10.1 [facility] Comment on above: Performed By: #### C MP, CRP #### [facility] [address] [place] [address] Dr. Celeste Art Chloride [Moles/Vol] 107 mmol/L Normal 98-107 [facility] Comment on above: Performed By: #### C MP, CRP #### [facility] [address] [place] [address] Dr. Celeste Art CO2 [Moles/Vol] 22.1 mmol/L Normal 21.0-32.0 [facility] Comment on above: Performed By: #### C MP, CRP #### [facility] [address] [place] [address] Dr. Celeste Art Creatinine [Mass/Vol] 0.93 mg/dL Normal 0.70-1.30 [facility] Comment on above: Performed By: #### C MP, CRP #### [facility] [address] [place], [place] [id number] Dr. Celeste Art EGFR-AF ETHIOPIAN >60 Normal >=60 [facility] Comment on above: Performed By: #### C MP, CRP #### [facility] [address] [address] [address] Celeste Art EGFR-NON AF ETHIOPIAN >60 Normal >=60 [facility] Comment on above: Performed By: #### C MP, CRP #### [facility] [address] [address] [address] Celeste Art Globulin (S) [Mass/Vol] 3.4 g/dL Normal [facility] Comment on above: Performed By: #### C MP, CRP #### [facility] [address] [place] [address] Dr. Celeste Art Glucose [Mass/Vol] 161 mg/dL Critically high 74-106 [facility] Comment on above: Performed By: #### C MP, CRP #### [facility] [address] [place] [address] Dr. Celeste Art Potassium [Moles/Vol] 4.0 mmol/L Normal 3.5-5.1 [facility] Comment on above: Performed By: #### C MP, CRP #### [facility] [address] [place] [address] Dr. Celeste Art Protein [Mass/Vol] 7.1 g/dL Normal 6.4-8.2 [facility] Comment on above: Performed By: #### C MP, CRP #### [facility] [address] [place] [address] Dr. Celeste Art Sodium [Moles/Vol] 144 mmol/L Normal 136-145 [facility] Comment on above: Performed By: #### C MP, CRP #### [facility] [address] [place] [address] Dr. Celeste Art Urea nitrogen [Mass/Vol] 17.0 mg/dL Normal 7.0-18.0 [facility] Comment on above: Performed By: #### C MP, CRP #### [facility] [address] [place] [address] Dr. Celeste Art Urea nitrogen/Creatinine [Mass ratio] 18.3 mg/mg Normal [facility] Comment on above: Performed By: #### C MP, CRP #### [facility] [id number] Celeste Art Consenton 10-04-2021 Consent [id number]. 00CD:127 Normal [facility] Registrationon 10-04-2021 Registration [id number]. 00CD:127 [facility] Physician Referralon 021 Physician Referral [id number] 0CD:127 [facility] Encounters Encounter Date Encounter Type Care Provider Facility Start: 03-01-2023 End: 03-02-[address] ROSCOE YEE . Facility[facility] Start: 11-11-2022 End: 11-12-2022 ambulatory ALEKSANDR MASCORRO Facility:[facility] Start: 04-14-2022 End: 04-15-[address] SHALONDA CARLOS . Facility:[facility] Start: 04-04-2022 End: 04-05-[address] SHALONDA CARLOS . Facility:[facility] Payers Date Payer Category Payer Unknown [id number] [id number] [id number] 1970 Unknown [id number] [id number] [id number] 1970 Unknown [id number] [id number] [id number] 1970 Unknown [id number] [id number] [id number] 1960 Unknown [id number] 1960 Unknown [id number] Clinical Note 04-14-2022 Note Date & Type Note Facility 04-14-2022 Note EXAMINATION: XR FORE IGN BODY EYE HISTORY: Screening procedure COMPARISON: No relevant comparison available. FINDINGS: ORBITS: Negative for a metallic foreign body. OTHER: Negative. IMPRESSION: No metallic foreign bodies in the orbits Electronically authenticated by: QUOC OWENS Date: 2022-04-14 14:06 [facility] Summary Purpose Family History No Family History Records FoundNo Family History Records Found Advance Directives No Advanced Directives Records FoundNo Advanced Directives Records Found Additional Source Comments (unrecognized sect ion and content) No Status Records FoundNo Status Records Found INFORMATION SOURCE (unrecogn ized section and content) DATE CREATED AUTHOR 03/04/2022 Anthony Sangart [facility] DATE CREATED AUTHOR AUTHOR'S ORGANIZ ATION 03/02/2023 [facility] FOR RECORDS PERTAINING TO PATIENTS WHO ARE OR HAVE BEEN ENROLLED IN A CHEMICAL DEPENDENCY/SUBSTANCEABUSE PROGRAM, SOME INFORMATION MAY BE OMITTED. This clinical summary was aggregated from multiple sources. Caution should be exercised in using it in the provision of clinical care. This summary normalizes information from multiple sources, and as a consequence, information in this document may materially change the coding, format and clinical context of patient data. In addition, data may be omitted in some cases. CLINICAL DECISIONS SHOULD BE BASED ON THE PRIMARY CLINICAL RECORDS. [facility] [employer] [facility]. provides no warranty or guarantee of the accuracy or completeness of information in this document.
--- NOTE | 2024-10-09 20:36 | XR_ITS ---
[address] [id number] Patient Name: NARENDRA MEDEROS MRN: [id number] date: 1970 Sex: M Assigned Patient Location: ER Current Patient Location: ER Accession/Order Number: [id number] Exam Date: 10/09/2024 20:43 Report Date: 10/09/2024 21:15 At the request of: KHADAR DIEZ Procedure: XR chest 1V EXAM: XR chest 1V TECHNIQUE: Single AP view chest HISTORY: shortness of breath, wheezing COMPARISON: 09/24/2024 FINDINGS: The heart and mediastinum are unremarkable. The lung harmon are clear of any acute infiltrate, effusion or mass. No acute bony abnormality. XR/XR chest 1V IMPRESSION: No acute pulmonary disease. Electronically authenticated by: HARSHA RAMON Date: 10/09/2024 21:15
--- NOTE | 2024-10-09 20:37 | ED_ITS ---
HPI - SOB/Dyspnea General Chief Complaint: Shortness of Breath/Dyspnea Stated Complaint: Shortness of breath Time Seen by Provider: 10/09/24 20:20 Source: patient Mode of arrival: walk-in Limitations: no limitations History of Present Illness HPI Narrative: pt developed chest congestion and wheezing a few days ago and it is not responding to use of home albuterol mdi. He thought he was getting better after being prescribed zpak and prednisone back on 10/04/24 - his CXR was negative. He denies any chest pain, LE swelling, pain in calves or lower legs, prior dvt/pe, cad or chf. No fever and minimal upper respiratory symptoms. Related Data Previous Rx's ?Medication ?Instructions ?Recorded doxycycline hyclate 100 mg capsule 100 mg PO BID 7 days #14 caps 10/09/24 prednisone 20 mg tablet 40 mg (2 x 20 mg) PO DAILY 3 days 10/09/24 #6 tabs Allergies Allergy/AdvReac Type Severity Reaction Status Date / Time erythromycin base AdvReac Unknown Unknown Verified 10/09/24 20:22 PFSH PFSH Social History Little interest or pleasure in doing things: not at all Feeling down, depressed, or hopeless: not at all Exam Narrative Exam Narrative: Nurses notes and vital signs reviewed and patient is not hypoxic. afebrile General: Well-appearing and in no apparent distress. Skin: Warm, dry, no pallor noted. No rash. Head: Normocephalic, atraumatic. Neck: Supple, non-tender. No cervical lymphadenopathy Eye: Pupils are equal, round and EOMI. No scleral icterus. Ears, Nose, Mouth, and Throat: TM are clear, no posterior oropharynx erythema or nasal mucosal hypertrophy, uvula is mid-line Oral mucosa is moist Cardiovascular: Borderline tachycardia. Respiratory: No accessory muscle use or respiratory distress. Lungs with diffuse expiratory wheezes, scattered rhonchi, no bibasilar rales Chest Wall: no tenderness, crepitus or subcutaneous emphysema. Musculoskeletal: normal ROM, no calf or popliteal tenderness, no lower extremity edema/swelling Neurological: A&O x4. No cranial nerve dysfunction observed. No truncal ataxia. Moves all extremities. Sensation intact. Psychiatric: Cooperative and interactive. Normal mood and affect. Constitutional Vital Signs, click to edit/add: Last Vital Signs Temp 98.0 F 10/09/24 20:16 Pulse 95 H 10/09/24 20:51 Resp 18 10/09/24 20:51 BP 140/72 10/09/24 20:16 Pulse Ox 96 10/09/24 20:51 O2 Del Method Room Air 10/09/24 20:51 Course Vital Signs Vital signs: Vital Signs Temperature 98.0 F 10/09/24 20:16 Pulse Rate 106 H 10/09/24 20:16 Respiratory Rate 18 10/09/24 20:16 Blood Pressure 140/72 10/09/24 20:16 Pulse Oximetry 98 10/09/24 20:16 Oxygen Delivery Method Room Air 10/09/24 20:16 Temperature 98.0 F 10/09/24 20:16 Pulse Rate 95 H 10/09/24 20:51 Respiratory Rate 18 10/09/24 20:51 Blood Pressure 140/72 10/09/24 20:16 Pulse Oximetry 96 10/09/24 20:51 Oxygen Delivery Method Room Air 10/09/24 20:51 MDM - SOB/Dyspnea MDM Narrative Medical decision making narrative: Patient ordered to receive DuoNeb treatment, oral prednisone. Portable chest x- ray also ordered to be obtained. CXR negative. Pt better after ED treatment. Discharge home with prescriptions for doxycycline and a short course of prednisone - he has albuterol at home. PCP follow up recommended - ED return if he worsens. Imaging Data Chest x-ray: Attestation: I personally reviewed and interpreted this imaging study as follows: My impression: NAD Discharge Plan Discharge Chief Complaint: Shortness of Breath/Dyspnea Clinical Impression: Acute bronchitis Patient Disposition: Home, Self-Care Time of Disposition Decision: 21:17 Prescriptions / Home Meds: New prednisone 20 mg tablet 40 mg PO DAILY 3 Days Qty: 6 0RF doxycycline hyclate 100 mg capsule 100 mg PO BID 7 Days Qty: 14 0RF Print Language: Portuguese Instructions: Acute Bronchitis (ED) Referrals: Papi Abbott MD [Primary Care Provider] - 1 week
[2024-10-09] MEDS: IPRATROPIUM/ALBUTEROL SULFATE 3 ML AMPUL.NEB IH (20:49)
[2024-10-09 20:51] VITALS: PULSE 95; O2SAT 96
[2024-10-09] MEDS: PREDNISONE 20 MG TABLET 40 MG PO (21:02)
[2024-10-09 21:05] VITALS: O2SAT 94
[2024-10-09 21:10] VITALS: O2SAT 93
[2024-10-09 21:20] VITALS: O2SAT 96
== END 2024-10-09 21:38 | disposition home or self-care (01) ==
PROVIDERS: Emergency Provider Emergency Medicine; PCP Family Medicine
DX: J20.9 Acute bronchitis, unspecified (principal)
CPT/HCPCS: 71045; 94640; 99283; J7512

== ENCOUNTER 2024-10-20 18:46 | Emergency (ER) | payer BC, SELFPAY ==
[2024-10-20] VITALS (23 sets, daily range): BP systolic 109–128; BP diastolic 81–82; PULSE 86–111; TEMP 37.1; O2SAT 92–99; BMI 26.1
--- NOTE | 2024-10-20 19:16 | ECG_ITS ---
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
--- NOTE | 2024-10-20 19:19 | ED.SOB1 ---
HPI - SOB/Dyspnea General Chief Complaint: Shortness of Breath/Dyspnea Stated Complaint: sob Time Seen by Provider: 10/20/24 19:07 Source: patient Mode of arrival: walk-in Limitations: no limitations History of Present Illness HPI Narrative: This 54 old male with a history of asthma presents for evaluation of cough, wheezing shortness of breath and pain in his left chest. He has been on 3 different antibiotics over the past several months. He has also been on a round of prednisone. He states he is using his inhaler every 10 minutes. He does not have a nebulizer. He denies any tobacco use. He states he just finished a Z-Barney but is still having shortness of breath and cough with productive yellow phlegm. He states he has had multiple chest x-rays done that do not show any pneumonia. He states he has been having sweats but not denies any specific fever. He denies any dizziness or syncope. He has no lower extremity pain or swelling. He denies any nausea vomiting or diarrhea. Related Data Previous Rx's ?Medication ?Instructions ?Recorded doxycycline hyclate 100 mg capsule 100 mg PO BID 7 days #14 caps 10/09/24 prednisone 20 mg tablet 40 mg (2 x 20 mg) PO DAILY 3 days 10/09/24 #6 tabs Allergies Allergy/AdvReac Type Severity Reaction Status Date / Time erythromycin base AdvReac Unknown Unknown Verified 10/09/24 20:22 Review of Systems ROS Status of ROS 10 or more systems reviewed and unremarkable except as noted in history and below PFSH PFSH Social History Little interest or pleasure in doing things: not at all Feeling down, depressed, or hopeless: not at all Exam Narrative Exam Narrative: Vital signs and Nursing Notes reviewed: Patient is afebrile, he is tachycardic with a pulse of 111, he is not hypoxic with pulse ox of 98% on room air General: Awake, alert, oriented, no acute distress, lying comfortably on the stretcher HEENT: Normocephalic atraumatic, mucous membranes are moist and pink, eyes are clear, normal conjunctiva, vision is grossly intact, posterior pharynx is normal in appearance. Chest: Bilateral inspiratory and expiratory wheezing, no rhonchi or rales appreciated, no accessory muscle use noted, patient is speaking in complete sentences and is not hypoxic with pulse ox of 98% on room air CVS: Regular rate and rhythm S1-S2, tachycardic with pulse of 111 at triage no murmurs rubs or gallops, pulses are brisk and equal bilaterally ABD: Soft, nondistended, nontender, no rebound guarding or rigidity, bowel sounds are normal, no pulsatile masses appreciated Extremities: Moving all extremities, no lower extremity tenderness or swelling noted, negative Homans' sign, pulses are brisk and equal bilaterally Skin: Normal in appearance without rash,pallor, petechiae or purpura Neuro: No focal deficits Constitutional Vital Signs, click to edit/add: Last Vital Signs Temp 98.8 F 10/20/24 18:56 Pulse 86 10/20/24 22:00 Resp 16 10/20/24 22:48 BP 128/81 10/20/24 19:06 Pulse Ox 94 L 10/20/24 20:20 O2 Del Method Room Air 10/20/24 19:25 Course Vital Signs Vital signs: Vital Signs Temperature 98.8 F 10/20/24 18:56 Pulse Rate 111 H 10/20/24 18:56 Respiratory Rate 24 H 10/20/24 18:56 Blood Pressure 109/82 10/20/24 18:56 Pulse Oximetry 98 10/20/24 18:56 Oxygen Delivery Method Room Air 10/20/24 18:56 Temperature 98.8 F 10/20/24 18:56 Pulse Rate 86 10/20/24 22:00 Respiratory Rate 16 10/20/24 22:48 Blood Pressure 128/81 10/20/24 19:06 Pulse Oximetry 94 L 10/20/24 20:20 Oxygen Delivery Method Room Air 10/20/24 19:25 MDM - SOB/Dyspnea MDM Narrative Medical decision making narrative: This 54-year-old male with a history of asthma who does not smoke presents for evaluation of cough, wheezing and shortness of breath. He has recently finished a course of prednisone and doxycycline. He states he has been on 3 different antibiotics in the past several months. He has been using his inhaler routinely without significant improvement in his wheezing and cough. He does not have a nebulizer machine. He denies any fever but states he has had multiple episodes of diaphoresis recently. He has nonradiating pain under his left breast. This has been intermittently present for the past several weeks. He denies any abdominal pain or back pain. He has not had any dizziness or syncope. EKG done upon arrival was a sinus rhythm at 100 bpm with a normal axis and no acute changes. Repeat EKG was performed as I was unaware that the initial EKG had been ordered and done and is a sinus rhythm at 92 bpm with a normal axis and no acute findings. He is not hypoxic. He was mildly tachycardic upon arrival. An IV was placed and he was medicated with 125 mg of IV Solu-Medrol and given a DuoNeb treatment. On reevaluation his breathing had improved and he only had faint expiratory wheezing. A cardiac workup including CBC with differential, comprehensive metabolic profile, troponin, D-dimer and lactic acid was ordered. He has a normal white count and hemoglobin. Comprehensive metabolic profile is normal with the exception of an elevated creatinine at 1.52. Troponin and D-dimer are both normal. Lactic acid is elevated at 3.6. Influenza testing is negative. He was given a liter of normal saline and repeat troponin and lactic acid was ordered. Chest x-ray was read by radiology and is negative for acute findings. Repeat labs were ordered. After a liter of fluid his creatinine is gone from 1.52-1.35. Troponin is still normal at less than 4. Lactic acid has improved and is now 2.5. On reevaluation his lungs are clear with very faint expiratory wheezing but overall he feels better. I discussed the acquisition of a nebulizer machine with the patient. He is going to order a nebulizer machine online and I am going to prescribe him albuterol nebulizer solution for the machine and discharged him home with this prescription as well as Robitussin AC for his cough that he feels is aggravating his asthma. He will also be given a Medrol Dosepak to use over the course of the next week. He was encouraged to drink plenty of fluids. I explained a elevated creatinine to him. He states he tries to drink at least 3-4 bottles of water a day but recently has not been feeling that well and this may be not been drinking as much as he should. At this time I do not think antibiotics are indicated. He will be discharged home with recommendation for return to the emergency department for worsening symptoms, fever, chills, increasing chest pain dizziness worsening shortness of breath or any concerns. Medical Records Attestation: I reviewed the patient's medical records. Medical records narrative: The [address] [place] [address] XRay Report Signed Patient: NARENDRA MEDEROS MR#: [id number] : 1970 Acct:[id number] Age/Sex: 54 / M ADM Date: 10/20/24 Loc: ER Attending Dr: Ordering Physician: Criselda Colin Date of Service: 10/20/24 Procedure(s): XR chest 2V Accession Number(s): [id number] cc: Papi Abbott M.D.; Criselda Marker~ The [address] [address] Patient Name: NARENDRA MEDEROS MRN: [id number] date: 1970 Sex: M Assigned Patient Location: ER Current Patient Location: ER Accession/Order Number: [id number] Exam Date: 10/20/2024 20:21 Report Date: 10/20/2024 21:41 At the request of: CRISELDA MARKER Procedure: XR chest 2V EXAMINATION: XR chest 2V, , 10/20/2024 8:21 PM EST INDICATION: cough, sob HISTORY: Ordering Provider Reason for Exam: cough, sob Technologist Note: Additional: COMPARISON: None. TECHNIQUE: Chest x-ray: Two views. FINDINGS: No pneumothorax, pleural effusion or focal airspace consolidation. Heart is normal in size. Bony thorax is unremarkable. XR/XR chest 2V IMPRESSION: No acute cardiopulmonary process. Electronically authenticated by: SE GREGORIO Date: 10/20/2024 21:41 Lab Data Attestation: I reviewed the patient's lab results. Labs: Lab Results 10/20/24 10/20/24 10/20/24 Range/Units 19:26 19:31 20:51 WBC 6.1 (4.0-11.0) 10^3/uL RBC 4.81 (4.70-6.10) 10^6/uL Hgb 15.0 (14.0-18.0) g/dL Hct 44.9 (42.0-54.0) % MCV 93.3 (80.0-94.0) fL MCH 31.2 (25.9-34.0) pg MCHC 33.4 (29.9-35.2) g/dL RDW 12.4 (11.0-15.0) % Plt Count 208 (150-450) 10^3/uL MPV 8.9 L (9.5-13.5) fL Neut % (Auto) 61.5 (43.0-75.0) % Lymph % (Auto) 17.7 L (20.5-60.0) % [place] % (Auto) 19.3 H (1.7-12.0) % Eos % (Auto) 0.5 L (0.9-7.0) % Baso % (Auto) 0.7 (0.2-2.0) % Neut # (Auto) 3.7 (1.4-6.5) 10^3/uL Lymph # (Auto) 1.1 L (1.2-3.8) 10^3/uL [place] # (Auto) 1.2 H (0.3-0.8) 10^3/uL Eos # (Auto) 0.0 (0.0-0.7) 10^3/uL Baso # (Auto) 0.0 (0.0-0.1) 10^3/uL Abs Immat Gran (auto) 0.02 (0.00-0.03) 10^3/uL Imm/Tot Granulo (auto) 0.3 (0.0-0.5) % D-Dimer 0.21 (<=0.59) mg/L FEU Sodium 143 (136-145) mmol/L Potassium 4.0 (3.5-5.1) mmol/L Chloride 103 (98-107) mmol/L Carbon Dioxide 28.9 (21.0-32.0) mmol/L Anion Gap 15.1 BUN 15.0 (7.0-18.0) mg/dL Creatinine 1.52 H (0.70-1.30) mg/dL Est GFR ( Amer) 58 L (>=60 mL/min/1.73m^2) Est GFR (Non-Af Amer) 48 L (>=60 mL/min/1.73m^2) BUN/Creatinine Ratio 9.9 Glucose 123 H (74-106) mg/dL Lactate 3.6 H* (0.4-2.0) mmol/L Calcium 8.4 L (8.5-10.1) mg/dL Total Bilirubin 0.3 (0.2-1.0) mg/dL AST 26 (15-37) U/L ALT 42 (16-63) U/L Alkaline Phosphatase 79 (46-116) U/L Troponin I High Sens <4.0 L <4.0 L (4.0-76.1) pg/mL Total Protein 6.8 (6.4-8.2) g/dL Albumin 3.6 (3.4-5.0) g/dL Globulin 3.2 g/dL Albumin/Globulin Ratio 1.1 Influenza Type A Ag Negative Influenza Type B Ag Negative 10/20/24 10/20/24 Range/Units 21:45 21:50 WBC (4.0-11.0) 10^3/uL RBC (4.70-6.10) 10^6/uL Hgb (14.0-18.0) g/dL Hct (42.0-54.0) % MCV (80.0-94.0) fL MCH (25.9-34.0) pg MCHC (29.9-35.2) g/dL RDW (11.0-15.0) % Plt Count (150-450) 10^3/uL MPV (9.5-13.5) fL Neut % (Auto) (43.0-75.0) % Lymph % (Auto) (20.5-60.0) % [place] % (Auto) (1.7-12.0) % Eos % (Auto) (0.9-7.0) % Baso % (Auto) (0.2-2.0) % Neut # (Auto) (1.4-6.5) 10^3/uL Lymph # (Auto) (1.2-3.8) 10^3/uL [place] # (Auto) (0.3-0.8) 10^3/uL Eos # (Auto) (0.0-0.7) 10^3/uL Baso # (Auto) (0.0-0.1) 10^3/uL Abs Immat Gran (auto) (0.00-0.03) 10^3/uL Imm/Tot Granulo (auto) (0.0-0.5) % D-Dimer (<=0.59) mg/L FEU Sodium 140 (136-145) mmol/L Potassium 3.8 (3.5-5.1) mmol/L Chloride 104 (98-107) mmol/L Carbon Dioxide 27.2 (21.0-32.0) mmol/L Anion Gap 12.6 BUN 13.0 (7.0-18.0) mg/dL Creatinine 1.35 H (0.70-1.30) mg/dL Est GFR ( Amer) >60 (>=60 mL/min/1.73m^2) Est GFR (Non-Af Amer) 55 L (>=60 mL/min/1.73m^2) BUN/Creatinine Ratio 9.6 Glucose 124 H (74-106) mg/dL Lactate 2.5 H* (0.4-2.0) mmol/L Calcium 8.0 L (8.5-10.1) mg/dL Total Bilirubin (0.2-1.0) mg/dL AST (15-37) U/L ALT (16-63) U/L Alkaline Phosphatase (46-116) U/L Troponin I High Sens (4.0-76.1) pg/mL Total Protein (6.4-8.2) g/dL Albumin (3.4-5.0) g/dL Globulin g/dL Albumin/Globulin Ratio Influenza Type A Ag Influenza Type B Ag ECG Data Attestation: I personally reviewed and interpreted this ECG as follows: (Sinus tachycardia at 100 bpm, normal axis, nonspecific ST changes, no acute ST segment elevation or T wave inversion) Discharge Plan Discharge Chief Complaint: Shortness of Breath/Dyspnea Clinical Impression: Asthma with acute exacerbation, Dehydration, mild Patient Disposition: Home, Self-Care Prescriptions / Home Meds: No Action prednisone 20 mg tablet 40 mg PO DAILY 3 Days Qty: 6 0RF doxycycline hyclate 100 mg capsule 100 mg PO BID 7 Days Qty: 14 0RF Print Language: Trinidadian Referrals: Papi Abbott MD [Primary Care Provider] - 1 week Discharge Date/Time: 10/20/24 22:45
[2024-10-20] MEDS: IPRATROPIUM/ALBUTEROL SULFATE 3 ML AMPUL.NEB IH (19:27)
[2024-10-20 19:36] LABS: Basophils Percent Auto 0.7 % (0.2-2.0); Eosinophils Percent Auto 0.5 % (0.9-7.0); Hematocrit 44.9 % (42.0-54.0); Immature Granulocytes Abs Auto 0.02 10^3/uL (0.00-0.03); Immature Granulocytes Pct Auto 0.3 % (0.0-0.5); Lymphocytes Absolute Auto 1.1 10^3/uL (1.2-3.8); Lymphocytes Percent Auto 17.7 % (20.5-60.0); Mean Corpuscular HGB Conc 33.4 g/dL (29.9-35.2); Mean Corpuscular Hemoglobin 31.2 pg (25.9-34.0); Mean Corpuscular Volume 93.3 fL (80.0-94.0); Mean Platelet Volume 8.9 fL (9.5-13.5); Monocytes Absolute Auto 1.2 10^3/uL (0.3-0.8); Monocytes Percent Auto 19.3 % (1.7-12.0); Neutrophils Absolute Auto 3.7 10^3/uL (1.4-6.5); Neutrophils Percent Auto 61.5 % (43.0-75.0); Platelet Count 208 10^3/uL (150-450); Red Blood Count 4.81 10^6/uL (4.70-6.10); Red Cell Distribution Width 12.4 % (11.0-15.0); White Blood Count 6.1 10^3/uL (4.0-11.0)
[2024-10-20] MEDS: METHYLPREDNISOLONE SOD SUCC PF 125 MG/2 ML VIAL IVP (19:38)
[2024-10-20 19:53] LABS: Influenza Virus A Antigen Negative; Influenza Virus B Antigen Negative; Internal Control Within Normal Limits
[2024-10-20 19:56] LABS: D Dimer 0.21 mg/L FEU (<=0.59)
[2024-10-20 20:06] LABS: Alanine Aminotransferase 42 U/L (16-63); Albumin Globulin Ratio 1.1; Albumin Level 3.6 g/dL (3.4-5.0); Alkaline Phosphatase 79 U/L (46-116); Anion Gap 15.1; Aspartate Amino Transferase 26 U/L (15-37); BUN Creatinine Ratio 9.9; Bilirubin Total 0.3 mg/dL (0.2-1.0); Calcium 8.4 mg/dL (8.5-10.1); Carbon Dioxide 28.9 mmol/L (21.0-32.0); Chloride 103 mmol/L (98-107); Estimated GFR (African America 58 (>=60 mL/min/1.73m^2); Estimated GFR (Non-African Ame 48 (>=60 mL/min/1.73m^2); Globulin 3.2 g/dL; Glucose 123 mg/dL (74-106); Sodium 143 mmol/L (136-145); Total Protein 6.8 g/dL (6.4-8.2); Troponin I High Sensitivity <4.0 pg/mL (4.0-76.1)
--- NOTE | 2024-10-20 20:11 | XR_ITS ---
The [place] [id number] Patient Name: NARENDRA MEDEROS MRN: [id number] date: 1970 Sex: M Assigned Patient Location: ER Current Patient Location: ER Accession/Order Number: [id number] Exam Date: 10/20/2024 20:21 Report Date: 10/20/2024 21:41 At the request of: ROSCOE MARKER Procedure: XR chest 2V EXAMINATION: XR chest 2V, , 10/20/2024 8:21 PM EST INDICATION: cough, sob HISTORY: Ordering Provider Reason for Exam: cough, sob Technologist Note: Additional: COMPARISON: None. TECHNIQUE: Chest x-ray: Two views. FINDINGS: No pneumothorax, pleural effusion or focal airspace consolidation. Heart is normal in size. Bony thorax is unremarkable. XR/XR chest 2V IMPRESSION: No acute cardiopulmonary process. Electronically authenticated by: SE GREGORIO Date: 10/20/2024 21:41
[2024-10-20 20:12] LABS: Lactate/Lactic Acid 3.6 mmol/L (0.4-2.0)
[2024-10-20] MEDS: 0.9 % SODIUM CHLORIDE 1,000 ML 1000 ML IV (20:19)
[2024-10-20 22:13] LABS: Anion Gap 12.6; BUN Creatinine Ratio 9.6; Carbon Dioxide 27.2 mmol/L (21.0-32.0); Chloride 104 mmol/L (98-107); Estimated GFR (African America >60 (>=60 mL/min/1.73m^2); Estimated GFR (Non-African Ame 55 (>=60 mL/min/1.73m^2); Glucose 124 mg/dL (74-106); Potassium 3.8 mmol/L (3.5-5.1); Sodium 140 mmol/L (136-145)
[2024-10-20 22:14] LABS: Troponin I High Sensitivity <4.0 pg/mL (4.0-76.1)
[2024-10-20 22:24] LABS: Lactate/Lactic Acid 2.5 mmol/L (0.4-2.0)
--- NOTE | 2024-10-20 22:24 | PC.NURSE ---
Lactic of 2.5 called to communications writer per Mirna from lab. Dr Colin informed. NNO received.
[2024-10-20] MEDS: CODEINE 10 MG/GUAIFENESIN 100 MG 5 ML CUP 10 ML PO (22:45)
== END 2024-10-20 22:45 | disposition home or self-care (01) ==
PROVIDERS: Emergency Provider Emergency Medicine; PCP Family Medicine
DX: J45.901 Unspecified asthma with (acute) exacerbation (principal); E86.0 Dehydration
CPT/HCPCS: 36415; 71046; 80048; 80053; 83605; 84484; 85025; 85378; 87804; 93005; 94640; 96361; 96374; 99285; J2919

== ENCOUNTER 2024-10-24 16:08 | Outpatient (OUT) | payer BC, SELFPAY ==
[2024-10-24 16:47] LABS: Hematocrit 43.7 % (42.0-54.0); Hemoglobin 14.9 g/dL (14.0-18.0); Mean Corpuscular HGB Conc 34.1 g/dL (29.9-35.2); Mean Corpuscular Hemoglobin 31.2 pg (25.9-34.0); Mean Corpuscular Volume 91.4 fL (80.0-94.0); Platelet Count 234 10^3/uL (150-450); Red Blood Count 4.78 10^6/uL (4.70-6.10); Red Cell Distribution Width 11.9 % (11.0-15.0); White Blood Count 5.5 10^3/uL (4.0-11.0)
[2024-10-24 18:33] LABS: Atypical Lymphocytes Abs Man 0.11; Lymphocytes Absolute Manual 2.09 10^3/uL (1.20-3.80); Monocytes Absolute Manual 1.32 10^3/uL (0.30-0.80); Segmented Neut Absolute Manual 1.98 10^3/uL (1.4-6.5)
== END 2024-10-24 16:09 | disposition home or self-care (01) ==
LOC: LAB 16:09
PROVIDERS: PCP Family Medicine; Visit Provider Family Medicine
DX: J20.9 Acute bronchitis, unspecified (principal); R53.83 Other fatigue
CPT/HCPCS: 36415; 85007; 85027; 86615; 86713; 86738

== ENCOUNTER 2024-10-26 11:15 | Outpatient (REF) | payer BC, SELFPAY ==
--- OUTSIDE RECORDS SUMMARY | 2024-10-26 11:17 | XMS_ITS | CCD ---
Author Organization [facility] Care Team Providers Care Rides Attendant Name Role Phone TERRANCE ., DR LIZ [...] (1 source) Erythromycin Drug Allergy 4 [facility] Repository (1 source) Oxytetracycline Drug Allergy 4 [facility] Repository Problems Active Problems Problem Classification Problem [...] 11-15-2022 Episodic Other aftercare (1 source) Other care home (current) drug therapy; Translations: [OTH PENITENTIARY CURRENT DRUG THERAPY] Onset: 11-15-2022 Episodic Other [...] (Bld) [Mass/Vol] 8.0 pg/mL Normal <=900.0 [facility] Comment on above: Performed By: #### B SHIRT SEWER, HSTROPN, BMP #### [facility] [address] [place] [address] Dr. Celeste Art CBC AUTO DIFFon 03-02-2023 BASO # 0.1 103/ul Normal 0.0-0.1 [facility] Comment on above: Performed By: #### C BC #### [facility] [address] [place] [address] Dr. Celeste Art Basophils/100 WBC (Bld) 1.1 % Normal 0.2-2.0 [facility] Comment on above: Performed By: #### C BC #### [facility] [address] [place] [address] Dr. Celeste Art EO # 0.8 103/ul Critically high 0.0-0.7 [facility] Comment on above: Performed By: #### C BC #### [facility] [address] [place] [address] Dr. Celeste Art Eosinophils/100 WBC (Bld) 10.8 % Critically high 0.9-7.0 [facility] Comment on above: Performed By: #### C BC #### [facility] [address] [place] [address] Dr. Celeste Art Erythrocyte distribution width (RBC) [Ratio] 12.4 % Normal 11.0-15.0 [facility] Comment on above: Performed By: #### C BC #### [facility] [address] [place] [address] Dr. Celeste Art Hematocrit (Bld) [Volume fraction] 44.5 % Normal 42.0-54.0 [facility] Comment on above: Performed By: #### C BC #### [facility] [address] [place] [address] Dr. Celeste Art Hemoglobin (Bld) [Mass/Vol] 14.7 g/dL Normal 14.0-18.0 [facility] Comment on above: Performed By: #### C BC #### [facility] [address] [place] [address] Dr. Celeste Art IG # 0.01 10e3/ul Normal 0.00-0.03 [facility] Comment on above: Performed By: #### C BC #### [facility] [address] [place] [address] Dr. Celeste Art IG % 0.1 % Normal 0.0-0.5 [facility] Comment on above: Performed By: #### C BC #### [facility] [address] [place] [address] Dr. Celeste Art LYMPH # 3.4 103/ul Normal 1.2-3.8 [facility] Comment on above: Performed By: #### C BC #### [facility] [address] [place] [address] Dr. Celeste Art Lymphocytes/100 WBC (Bld) 45.3 % Normal 20.5-60.0 [facility] Comment on above: Performed By: #### C BC #### [facility] [address] [place] [address] Dr. Celeste Art MANUAL DIFF REQ NO Normal [facility] Comment on above: Performed By: #### C BC #### [facility] [address] [place] [address] Dr. Celeste Art MCH (RBC) [Entitic mass] 30.6 pg Normal 25.9-34.0 [facility] Comment on above: Performed By: #### C BC #### [facility] [address] [place] [address] Dr. Celeste Art MCHC (RBC) [Mass/Vol] 33.0 g/dL Normal 29.9-35.2 [facility] Comment on above: Performed By: #### C BC #### [facility] [address] [place] [address] Dr. Celeste Art MCV (RBC) [Entitic vol] 92.7 fL Normal 80.0-94.0 [facility] Comment on above: Performed By: #### C BC #### [facility] [address] [place] [address] Dr. Celeste Art MONO # 0.6 103/ul Normal 0.3-0.8 [facility] Comment on above: Performed By: #### C BC #### [facility] [address] [place] [address] Dr. Celeste Art Monocytes/100 WBC (Bld) 8.5 % Normal 1.7-12.0 [facility] Comment on above: Performed By: #### C BC #### [facility] [address] [place] [address] Dr. Celeste Art NEUT # 2.5 103/ul Normal 1.4-6.5 [facility] Comment on above: Performed By: #### C BC #### [facility] [address] [place] [address] Dr. Celeste Art Neutrophils/100 WBC (Bld) 34.2 % Critically low 43.0-75.0 [facility] Comment on above: Performed By: #### C BC #### [facility] [address] [place] [address] Dr. Celeste Art Platelet mean volume (Bld) [Entitic vol] 8.6 fL Critically low 9.5-13.5 [facility] Comment on above: Performed By: #### C BC #### [facility] [address] [place] [address] Dr. Celeste Art PLT 274 103/ul Normal 150-450 [facility] Comment on above: Performed By: #### C BC #### [facility] [address] [place] [address] Dr. Celeste Art RBC 4.80 106/ul Normal 4.70-6.10 [facility] Comment on above: Performed By: #### C BC #### [facility] [address] [place] [address] Dr. Celeste Art WBC 7.4 103/ul Normal 4.0-11.0 [facility] Comment on above: Performed By: #### C BC #### [facility] [address] [place] [address] Dr. Celeste Art PROF CHEM 8 (BAS METB)on Anion gap [Moles/Vol] 11.8 mmol/L Normal [facility] Comment on above: Performed By: #### B SHIRT SEWER HSTROPEmperatriz BMP #### [facility] [address] [place] [address] Dr. Celeste Art Calcium [Mass/Vol] 8.4 mg/dL Critically low 8.5-10.1 [facility] Comment on above: Performed By: #### B SHIRT SEWER, HSTROPN, BMP #### [facility] [address] [place] [address] Dr. Celeste Art Chloride [Moles/Vol] 107 mmol/L Normal 98-107 [facility] Comment on above: Performed By: #### B SHIRT SEWER HSTROPN, BMP #### [facility] [address] [place] [address] Dr. Celeste Art CO2 [Moles/Vol] 27.7 mmol/L Normal 21.0-32.0 [facility] Comment on above: Performed By: #### B SHIRT SEWER, HSTROPN, BMP #### [facility] [address] [address] [address] Celeste Art Creatinine [Mass/Vol] 0.99 mg/dL Normal 0.70-1.30 [facility] Comment on above: Performed By: #### B SHIRT SEWER, HSTROPN, BMP #### [facility] [address] [place] [address] Dr. Celeste Art EGFR-AF COMORAN >60 Normal >=60 [facility] Comment on above: Performed By: #### B SHIRT SEWER, HSTROPN, BMP #### [facility] [address] [place] [address] Dr. Celeste Art EGFR-NON AF COMORAN >60 Normal >=60 [facility] Comment on above: Performed By: #### B SHIRT SEWER, HSTROPN, BMP #### [facility] [address] [place] [address] Dr. Celeste Art Glucose [Mass/Vol] 104 mg/dL Normal 74-106 [facility] Comment on above: Performed By: #### B SHIRT SEWER, HSTROPN, BMP #### [facility] [address] [place] [address] Dr. Celeste Art Potassium [Moles/Vol] 3.5 mmol/L Normal 3.5-5.1 [facility] Comment on above: Performed By: #### B SHIRT SEWER, HSTROPN, BMP #### [facility] [address] [place] [address] Dr. Celeste Art Sodium [Moles/Vol] 143 mmol/L Normal 136-145 [facility] Comment on above: Performed By: #### B SHIRT SEWER, HSTROPN, BMP #### [facility] [address] [place] [address] Dr. Celeste Art Urea nitrogen [Mass/Vol] 14.0 mg/dL Normal 7.0-18.0 [facility] Comment on above: Performed By: #### B SHIRT SEWER, HSTROPN, BMP #### [facility] [address] [place] [address] Dr. Celeste Art Urea nitrogen/Creatinine [Mass ratio] 14.1 mg/mg Normal [facility] Comment on above: Performed By: #### B SHIRT SEWER, HSTROPN, BMP #### [facility] [address] [address] [address] Celeste Art TROPONIN, HIGH SENSITIVITYon 03-02-2023 HSTROP 5.1 pg/mL Normal 4.0-76.1 [facility] Comment on above: Result Comment: CUT- OFF POINTS HAVE BEEN ESTABLISHED BASED ON THE FOURTH UNIVERSAL DEFINITIONS OF MYOCARDIAL INFARCTION. THE UPPER REFERENCE LIMIT (URL) OF TROPONIN, DEFINED THE 99TH PERCENTILE OF cTnI DISTRIBUTION IN A REFERENCE POPULATION, HAS BEEN CONFIRMED THE DECISION THRESHOLD FOR MS DIAGNOSIS. Performed By: #### B SHIRT SEWER, HSTROPN, BMP #### [facility] [address] [place] [address] Dr. Celeste Art XR CHEST 2 Von [...] EDMUNDO UNLU Date: 2023-03-01 22:45 Normal [facility] CBC AUTO DIFFon 11-11-2022 BASO # 0.1 103/ul Normal 0.0-0.1 [facility] Comment on above: Performed By: #### C BC #### [facility] [address] [address] [address] Celeste Art Basophils/100 WBC (Bld) 1.2 % Normal 0.2-2.0 [facility] Comment on above: Performed By: #### C BC #### [facility] [address] [address] [address] Celeste Art EO # 1.0 103/ul Critically high 0.0-0.7 [facility] Comment on above: Performed By: #### C BC #### [facility] [address] [address] [address] Celeste Art Eosinophils/100 WBC (Bld) 13.1 % Critically high 0.9-7.0 [facility] Comment on above: Performed By: #### C BC #### [facility] [address] [place] [address] Dr. Celeste Art Erythrocyte distribution width (RBC) [Ratio] 12.7 % Normal 11.0-15.0 [facility] Comment on above: Performed By: #### C BC #### [facility] [address] [place] [address] Dr. Celeste Art Hematocrit (Bld) [Volume fraction] 40.9 % Critically low 42.0-54.0 [facility] Comment on above: Performed By: #### C BC #### [facility] [address] [place] [address] Dr. Celeste Art Hemoglobin (Bld) [Mass/Vol] 14.4 g/dL Normal 14.0-18.0 [facility] Comment on above: Performed By: #### C BC #### [facility] [address] [place] [address] Dr. Celsete Art IG # 0.01 10e3/ul Normal 0.00-0.03 [facility] Comment on above: Performed By: #### C BC #### [facility] [address] [place] [address] Dr. Celeste Art IG % 0.1 % Normal 0.0-0.5 [facility] Comment on above: Performed By: #### C BC #### [facility] [address] [place] [address] Dr. Celeste Art LYMPH # 2.8 103/ul Normal 1.2-3.8 [facility] Comment on above: Performed By: #### C BC #### [facility] [address] [place] [address] Dr. Celeste Art Lymphocytes/100 WBC (Bld) 36.4 % Normal 20.5-60.0 [facility] Comment on above: Performed By: #### C BC #### [facility] [address] [place] [address] Dr. Celeste Art MANUAL DIFF REQ NO Normal [facility] Comment on above: Performed By: #### C BC #### [facility] [address] [place] [address] Dr. Celeste Art MCH (RBC) [Entitic mass] 30.4 pg Normal 25.9-34.0 [facility] Comment on above: Performed By: #### C BC #### [facility] [address] [place] [address] Dr. Celeste Art MCHC (RBC) [Mass/Vol] 35.2 g/dL Normal 29.9-35.2 [facility] Comment on above: Performed By: #### C BC #### [facility] [address] [place] [address] Dr. Celeste Art MCV (RBC) [Entitic vol] 86.5 fL Normal 80.0-94.0 [facility] Comment on above: Performed By: #### C BC #### [facility] [address] [place] [address] Dr. Celeste Art MONO # 0.8 103/ul Normal 0.3-0.8 [facility] Comment on above: Performed By: #### C BC #### [facility] [address] [place] [address] Dr. Celeste Art Monocytes/100 WBC (Bld) 10.1 % Normal 1.7-12.0 [facility] Comment on above: Performed By: #### C BC #### [facility] [address] [place] [address] Dr. Celeste Art NEUT # 3.0 103/ul Normal 1.4-6.5 [facility] Comment on above: Performed By: #### C BC #### [facility] [address] [place] [address] Dr. Celeste Art Neutrophils/100 WBC (Bld) 39.1 % Critically low 43.0-75.0 [facility] Comment on above: Performed By: #### C BC #### [facility] [address] [place] [address] Dr. Celeste Art Platelet mean volume (Bld) [Entitic vol] 8.5 fL Critically low 9.5-13.5 [facility] Comment on above: Performed By: #### C BC #### [facility] [address] [address] [address] Celeste Art PLT 296 103/ul Normal 150-450 [facility] Comment on above: Performed By: #### C BC #### [facility] [address] [address] [address] Celeste Art RBC 4.73 106/ul Normal 4.70-6.10 [facility] Comment on above: Performed By: #### C BC #### [facility] [id number] Celeste Art WBC 7.7 103/ul Normal 4.0-11.0 [facility] Comment on above: Performed By: #### C BC #### [facility] [address] [place] [address] Dr. Celeste Art [facility]17 SARS-CoV-2 (COVID-19) RNA KONSTANTIN+probe Ql (Unsp spec) Not detected Normal NOT DETECTED [facility] Comment on above: Result Comment: When diagnostic [...] for this test is supported by the [place] of [employer] and Human Service's declaration that [...] used). Performed By: #### C XSPTUM #### [facility] [address] [place] [address] Dr. Celeste Art INFLUENZA A AND B AGon 11-11 INFLUENZA A AG Negative Normal NEGATIVE SEE COMMENT [facility] Comment on above: Performed By: #### C BC #### [facility] [address] [place] [address] Dr. Celeste Art INFLUENZA B AG Negative Normal NEGATIVE SEE COMMENT [facility] Comment on above: Performed By: #### C BC #### [facility] [address] [place] [address] Dr. Celeste Art LACTATE/LACTIC ACIDon 2022 Lactate [Moles/Vol] 1.1 mmol/L Normal 0.4-1.9 [facility] Comment on above: Performed By: #### C XSPTUM #### [facility] [address] [place] [address] Dr. Celeste Art PROF CHEM 8 (BAS METB)on Anion gap [Moles/Vol] 11.9 mmol/L Normal [facility] Comment on above: Performed By: #### C XSPTUM #### [facility] [address] [place] [address] Dr. Celeste Art Calcium [Mass/Vol] 8.7 mg/dL Normal 8.5-10.1 [facility] Comment on above: Performed By: #### C XSPTUM #### [facility] [address] [place] [address] Dr. Celeste Art Chloride [Moles/Vol] 107 mmol/L Normal 98-107 [facility] Comment on above: Performed By: #### C XSPTUM #### [facility] [address] [place] [address] Dr. Celeste Art CO2 [Moles/Vol] 25.9 mmol/L Normal 21.0-32.0 [facility] Comment on above: Performed By: #### C XSPTUM #### [facility] [address] [place] [address] Dr. Celeste Art Creatinine [Mass/Vol] 0.85 mg/dL Normal 0.70-1.30 [facility] Comment on above: Performed By: #### C XSPTUM #### [facility] [address] [place] [address] Dr. Celeste Art EGFR-AF COMORAN >60 Normal >=60 [facility] Comment on above: Performed By: #### C XSPTUM #### [facility] [address] [place] [address] Dr. Celeste Art EGFR-NON AF COMORAN >60 Normal >=60 [facility] Comment on above: Performed By: #### C XSPTUM #### [facility] [address] [place] [address] Dr. Celeste Art Glucose [Mass/Vol] 88 mg/dL Normal 74-106 [facility] Comment on above: Performed By: #### C XSPTUM #### [facility] [address] [place] [address] Dr. Celeste Art Potassium [Moles/Vol] 3.8 mmol/L Normal 3.5-5.1 [facility] Comment on above: Performed By: #### C XSPTUM #### [facility] [address] [place] [address] Dr. Celeste Art Sodium [Moles/Vol] 141 mmol/L Normal 136-145 [facility] Comment on above: Performed By: #### C XSPTUM #### [facility] [address] [place] [address] Dr. Celeste Art Urea nitrogen [Mass/Vol] 14.0 mg/dL Normal 7.0-18.0 [facility] Comment on above: Performed By: #### C XSPTUM #### [facility] [address] [place] [address] Dr. Celeste Art Urea nitrogen/Creatinine [Mass ratio] 16.5 mg/mg Normal [facility] Comment on above: Performed By: #### C XSPTUM #### [facility] [address] [place] [address] Dr. Celeste Art RSVon 11-11-2022 RSV AG Negative Normal NEGATIVE [facility] Comment on above: Performed By: #### C BC #### [facility] [address] [place] [address] Dr. Celeste Art XR CHEST 2 Von [...] QUOC MALDONADO Date: 2022-11-11 21:51 Normal [facility] MRI LSPINE WO CONon 04-14-20 22 MRI [...] QUOC OWENS Date: 2022-04-14 20:46 Normal [facility] SPUTUM CULTUREon 04-08-2022 Epithelial cells LM Ql (Urine sed) Few Normal [facility] Comment on above: Performed By: #### C XSPTUM #### [facility] [address] [place] [address] Dr. Celeste Art Gram Stain Evaluation Comment Normal [facility] Comment on above: Result Comment: This specimen is of good quality and is acceptable for routine bacterial culture. Performed By: #### C XSPTUM #### [facility] [address] [place] [address] Dr. Celeste Art Lower Respiratory Culture Final report Normal [facility] Comment on above: Performed By: #### C XSPTUM #### [facility] [address] [place] [address] Dr. Celeste Art Result 1 Comment Normal [facility] Comment on above: Result Comment: Few gram positive cocci Performed By: #### C XSPTUM #### [facility] [address] [place] [address] Dr. Celeste Art Result Comment: Rout ine respiratory dragan Result 2 Comment Normal [facility] Comment on above: Result Comment: Few gram variable cocci Performed By: #### C XSPTUM #### [facility] [address] [place] [address] Dr. Celeste Art Result 3 Comment Normal [facility] Comment on above: Result Comment: Few gram negative rods. Performed By: #### C XSPTUM #### [facility] [address] [place] [address] Dr. Celeste Art Result 4 Normal [facility] Comment on above: Performed By: #### C XSPTUM #### [facility] [address] [place] [address] Dr. Celeste Art White Blood Cells Few Normal [facility] Comment on above: Performed By: #### C XSPTUM #### [facility] [address] [place] [address] Dr. Celeste Art CBC AUTO DIFFon 04-05-2022 BASO # 0.0 103/ul Normal 0.0-0.1 [facility] Comment on above: Performed By: #### C XSPTUM #### [facility] [address] [place] [address] Dr. Celeste Art Basophils/100 WBC (Bld) 0.1 % Critically low 0.2-2.0 [facility] Comment on above: Performed By: #### C XSPTUM #### [facility] [address] [place] [address] Dr. Celeste Art EO # 0.0 103/ul Normal 0.0-0.7 [facility] Comment on above: Performed By: #### C XSPTUM #### [facility] [address] [place] [address] Dr. Celeste Art Eosinophils/100 WBC (Bld) 0.0 % Critically low 0.9-7.0 [facility] Comment on above: Performed By: #### C XSPTUM #### [facility] [address] [place] [address] Dr. Celeste Art Erythrocyte distribution width (RBC) [Ratio] 12.4 % Normal 11.0-15.0 [facility] Comment on above: Performed By: #### C XSPTUM #### [facility] [address] [place] [address] Dr. Celeste Art Hematocrit (Bld) [Volume fraction] 44.2 % Normal 42.0-54.0 [facility] Comment on above: Performed By: #### C XSPTUM #### [facility] [address] [place] [address] Dr. Celeste Art Hemoglobin (Bld) [Mass/Vol] 14.6 g/dL Normal 14.0-18.0 [facility] Comment on above: Performed By: #### C XSPTUM #### [facility] [address] [place] [address] Dr. Celeste Art IG # 0.19 10e3/ul Critically high 0.00-0.03 [facility] Comment on above: Performed By: #### C XSPTUM #### [facility] [address] [place] [address] Dr. Celeste Art IG % 1.0 % Critically high 0.0-0.5 [facility] Comment on above: Performed By: #### C XSPTUM #### [facility] [address] [address] [address] Celeste Art LYMPH # 0.8 103/ul Critically low 1.2-3.8 [facility] Comment on above: Performed By: #### C XSPTUM #### [facility] [address] [place] [address] Dr. Celeste Art Lymphocytes/100 WBC (Bld) 3.9 % Critically low 20.5-60.0 [facility] Comment on above: Performed By: #### C XSPTUM #### [facility] [address] [place] [address] Dr. Celeste Art MANUAL DIFF REQ NO Normal [facility] Comment on above: Performed By: #### C XSPTUM #### [facility] [address] [place] [address] Dr. Celeste Art MCH (RBC) [Entitic mass] 30.7 pg Normal 25.9-34.0 [facility] Comment on above: Performed By: #### C XSPTUM #### [facility] [address] [place] [address] Dr. Celeste Art MCHC (RBC) [Mass/Vol] 33.0 g/dL Normal 29.9-35.2 [facility] Comment on above: Performed By: #### C XSPTUM #### [facility] [address] [place] [address] Dr. Celeste Art MCV (RBC) [Entitic vol] 92.9 fL Normal 80.0-94.0 [facility] Comment on above: Performed By: #### C XSPTUM #### [facility] [address] [place] [address] Dr. Celeste Art MONO # 0.5 103/ul Normal 0.3-0.8 [facility] Comment on above: Performed By: #### C XSPTUM #### [facility] [address] [place] [address] Dr. Celeste Art Monocytes/100 WBC (Bld) 2.4 % Normal 1.7-12.0 [facility] Comment on above: Performed By: #### C XSPTUM #### [facility] [address] [address] [address] Celeste Art NEUT # 18.3 103/ul Critically high 1.4-6.5 [facility] Comment on above: Performed By: #### C XSPTUM #### [facility] [address] [place] [address] Dr. Celeste Art Neutrophils/100 WBC (Bld) 92.6 % Critically high 43.0-75.0 [facility] Comment on above: Performed By: #### C XSPTUM #### [facility] [address] [address] [address] Celeste Art Platelet mean volume (Bld) [Entitic vol] 9.0 fL Critically low 9.5-13.5 [facility] Comment on above: Performed By: #### C XSPTUM #### [facility] [address] [place] [address] Dr. Celeste Art PLT 368 103/ul Normal 150-450 [facility] Comment on above: Performed By: #### C XSPTUM #### [facility] [address] [place] [address] Dr. Celeste Art RBC 4.76 106/ul Normal 4.70-6.10 [facility] Comment on above: Performed By: #### C XSPTUM #### [facility] [address] [place] [address] Dr. Celeste Art WBC 19.7 103/ul Critically high 4.0-11.0 [facility] Comment on above: Performed By: #### C XSPTUM #### [facility] [address] [place] [address] Dr. Celeste Art PROF 14(COMP METB)on 022 Albumin [Mass/Vol] 3.3 g/dL Critically low 3.4-5.0 [facility] Comment on above: Performed By: #### C XSPTUM #### [facility] [address] [place] [address] Dr. Celeste Art Albumin/Globulin [Mass ratio] 1.1 {ratio} Normal [facility] Comment on above: Performed By: #### C XSPTUM #### [facility] [address] [address] [address] Celeste Art ALP [Catalytic activity/Vol] 71 U/L Normal 46-116 [facility] Comment on above: Performed By: #### C XSPTUM #### [facility] [address] [address] [address] Celeste Art ALT [Catalytic activity/Vol] 41 U/L Normal 16-63 [facility] Comment on above: Performed By: #### C XSPTUM #### [facility] [address] [address] [address] Celeste Art Anion gap [Moles/Vol] 13.7 mmol/L Normal [facility] Comment on above: Performed By: #### C XSPTUM #### [facility] [address] [place] [address] Dr. Celeste Art AST [Catalytic activity/Vol] 14 U/L Critically low 15-37 [facility] Comment on above: Performed By: #### C XSPTUM #### [facility] [address] [address] [address] Celeste Art Bilirubin [Mass/Vol] 0.2 mg/dL Normal 0.2-1.0 [facility] Comment on above: Performed By: #### C XSPTUM #### [facility] [address] [address] [address] Celeste Art Calcium [Mass/Vol] 8.8 mg/dL Normal 8.5-10.1 [facility] Comment on above: Performed By: #### C XSPTUM #### [facility] [address] [address] [address] Celeste Art Chloride [Moles/Vol] 107 mmol/L Normal 98-107 [facility] Comment on above: Performed By: #### C XSPTUM #### [facility] [address] [address] [address] Celeste Art CO2 [Moles/Vol] 23.8 mmol/L Normal 21.0-32.0 [facility] Comment on above: Performed By: #### C XSPTUM #### [facility] [address] [address] [address] Celeste Art Creatinine [Mass/Vol] 0.99 mg/dL Normal 0.70-1.30 [facility] Comment on above: Performed By: #### C XSPTUM #### [facility] [address] [place] [address] Dr. Celeste Art EGFR-AF COMORAN >60 Normal >=60 [facility] Comment on above: Performed By: #### C XSPTUM #### [facility] [address] [address] [address] Celeste Art EGFR-NON AF COMORAN >60 Normal >=60 [facility] Comment on above: Performed By: #### C XSPTUM #### [facility] [address] [place] [address] Dr. Celeste Art Globulin (S) [Mass/Vol] 3.1 g/dL Normal [facility] Comment on above: Performed By: #### C XSPTUM #### [facility] [address] [place] [address] Dr. Celeste Art Glucose [Mass/Vol] 146 mg/dL Critically high 74-106 [facility] Comment on above: Performed By: #### C XSPTUM #### [facility] [address] [place] [address] Dr. Celeste Art Potassium [Moles/Vol] 4.5 mmol/L Normal 3.5-5.1 [facility] Comment on above: Performed By: #### C XSPTUM #### [facility] [address] [place] [address] Dr. Celeste Art Protein [Mass/Vol] 6.4 g/dL Normal 6.4-8.2 [facility] Comment on above: Performed By: #### C XSPTUM #### [facility] [address] [place] [address] Dr. Celeste Art Sodium [Moles/Vol] 140 mmol/L Normal 136-145 [facility] Comment on above: Performed By: #### C XSPTUM #### [facility] [address] [place] [address] Dr. Celeste Art Urea nitrogen [Mass/Vol] 22.0 mg/dL Critically high 7.0-18.0 [facility] Comment on above: Performed By: #### C XSPTUM #### [facility] [address] [place] [address] Dr. Celeste Art Urea nitrogen/Creatinine [Mass ratio] 22.2 mg/mg Normal [facility] Comment on above: Performed By: #### C XSPTUM #### [facility] [address] [place] [address] Dr. Celeste Art CBC W MANUAL DIFFon 04-04-20 ATYPICAL LYMPH # Normal [facility] Comment on above: Performed By: #### C VIVI #### [facility] [address] [place] [address] Dr. Celeste Art ATYPICAL LYMPH % Normal [facility] Comment on above: Performed By: #### C VIVI #### [facility] [address] [place] [address] Dr. Celeste Art BAND # Normal 0.0-0.3 [facility] Comment on above: Performed By: #### C VIVI #### [facility] [address] [place] [address] Dr. Celeste Art BAND % Normal 0-5 [facility] Comment on above: Performed By: #### C VIVI #### [facility] [address] [place] [address] Dr. Celeste Art BASOM # 0.00 103/ul Normal 0.00-0.10 [facility] Comment on above: Performed By: #### C VIVI #### [facility] [address] [place] [address] Dr. Celeste Art BASOM % 0.0 % Critically low 0.2-2.0 [facility] Comment on above: Performed By: #### C VIVI #### [facility] [address] [place] [address] Dr. Celeste Art BLAST # Normal [facility] Comment on above: Performed By: #### C VIVI #### [facility] [address] [place] [address] Dr. Celeste Art BLAST % Normal [facility] Comment on above: Performed By: #### C VIVI #### [facility] [address] [place] [address] Dr. Celeste Art CORRECTED WBC Normal 4.0-11.0 [facility] Comment on above: Performed By: #### C VIVI #### [facility] [address] [place] [address] Dr. Celeste Art EOS # 0.00 103/ul Normal 0.00-0.70 [facility] Comment on above: Performed By: #### C VIVI #### [facility] [address] [place] [address] Dr. Celeste Art EOS% 0.0 % Critically low 0.9-7.0 [facility] Comment on above: Performed By: #### C VIVI #### [facility] [address] [place] [address] Dr. Celeste Art HCT 45.8 % Normal 42.0-54.0 [facility] Comment on above: Performed By: #### C VIVI #### [facility] [address] [place] [address] Dr. Celeste Art HGB 15.4 g/dl Normal 14.0-18.0 [facility] Comment on above: Performed By: #### C VIVI #### [facility] [address] [place] [address] Dr. Celeste Art LYMPHM # 0.48 103/ul Critically low 1.20-3.80 [facility] Comment on above: Performed By: #### C VIVI #### [facility] [address] [place] [address] Dr. Celeste Art LYMPHM% 6.0 % Critically low 20.5-60.0 [facility] Comment on above: Performed By: #### C VIVI #### [facility] [address] [place] [address] Dr. Celeste Art MCH 30.5 pg Normal 25.9-34.0 [facility] Comment on above: Performed By: #### C VIVI #### [facility] [address] [place] [address] Dr. Celeste Art MCHC 33.6 g/dl Normal 29.9-35.2 [facility] Comment on above: Performed By: #### C BCSHAZIA #### [facility] [address] [place] [address] Dr. Celeste Art MCV 90.7 fL Normal 80.0-94.0 [facility] Comment on above: Performed By: #### C BCSHAZIA #### [facility] [address] [place] [address] Dr. Celeste Art METAMYELOCYTE # Normal [facility] Comment on above: Performed By: #### C VIVI #### [facility] [address] [place] [address] Dr. Celeste Art METAMYELOCYTE % Normal [facility] Comment on above: Performed By: #### C VIVI #### [facility] [address] [place] [address] Dr. Celeste Art MONOM# 0.08 103/ul Critically low 0.30-0.80 [facility] Comment on above: Performed By: #### C VIVI #### [facility] [address] [place] [address] Dr. Celeste Art MONOM% 1.0 % Critically low 1.7-12.0 [facility] Comment on above: Performed By: #### C BCSHAZIA #### [facility] [address] [place] [address] Dr. Celeste Art MPV 8.9 fL Critically low 9.5-13.5 [facility] Comment on above: Performed By: #### C BCMAN #### [facility] [address] [place] [address] Dr. Celeste Art MYELOCYTE # Normal [facility] Comment on above: Performed By: #### C VIVI #### [facility] [address] [place] [address] Dr. Celeste Art MYELOCYTE % Normal [facility] Comment on above: Performed By: #### C LEELEEMAN #### [facility] [address] [address] [address] Celeste Art NRBC Normal [facility] Comment on above: Performed By: #### C VIVI #### [facility] [address] [address] [address] Celeste Art PLT 379 103/ul Normal 150-450 [facility] Comment on above: Performed By: #### C LEELEEMAN #### [facility] [address] [address] [address] Celeste Art RBC 5.05 106/ul Normal 4.70-6.10 [facility] Comment on above: Performed By: #### C VIVI #### [facility] [address] [place] [address] Dr. Celeste Art RDW 12.0 % Normal 11.0-15.0 [facility] Comment on above: Performed By: #### C LEELEEMAN #### [facility] [address] [place] [address] Dr. Celeste Art SEG # 7.44 103/ul Critically high 1.40-6.50 [facility] Comment on above: Performed By: #### C LEELEEMAN #### [facility] [address] [place] [address] Dr. Celeste Art SEG % 93.0 % Critically high 43.0-75.0 [facility] Comment on above: Performed By: #### C VIVI #### [facility] [address] [place] [address] Dr. Celeste Art WBC 8.0 103/ul Normal 4.0-11.0 [facility] Comment on above: Performed By: #### C BCMAN #### [facility] [address] [place] [address] Dr. Celeste Art CRPon 04-04-2022 CRP [Mass/Vol] mg/L Normal <=1.0 [facility] Comment on above: Performed By: #### C MP, CRP #### [facility] [address] [place], [place] [address] LSPINE WO CONon [...] QUOC MALDONADO Date: 2022-04-03 22:54 Normal [facility] Covid-19 PCR (CVDTB)on 03-17 SARS-CoV-2 (COVID-19) RNA KONSTANTIN+probe Ql (Unsp spec) Not detected Normal NOT DETECTED [facility] Comment on above: Result Comment: When diagnostic [...] for this test is supported by the [place] of [employer] and Human Service's declaration that [...] used). Performed By: #### C VDTB #### [facility] [address] [place] [address] Dr. Celeste Art ER URINE PROFILEon 2 Bilirubin Ql (U) Negative Normal NEGATIVE [facility] Comment on above: Performed By: #### C XSPTUM #### [facility] [address] [place] [address] Dr. Celeste Art Clarity (U) CLEAR Normal CLEAR [facility] Comment on above: Performed By: #### C XSPTUM #### [facility] [address] [place] [address] Dr. Celeste Art Color (U) LT. YELLOW Normal YELLOW [facility] Comment on above: Performed By: #### C XSPTUM #### [facility] [address] [place] [address] Dr. Celeste BALDWIN A micrscopic examination will be performed if indicated. Normal [facility] Comment on above: Performed By: #### C XSPTUM #### [facility] [address] [place] [address] Dr. Celeste Art Glucose Ql (U) Negative Normal NEGATIVE [facility] Comment on above: Performed By: #### C XSPTUM #### [facility] [address] [place] [address] Dr. Celeste Art Hemoglobin Ql (U) Negative Normal NEGATIVE [facility] Comment on above: Performed By: #### C XSPTUM #### [facility] [address] [place] [address] Dr. Celeste Art Ketones Ql (U) Negative Normal NEGATIVE [facility] Comment on above: Performed By: #### C XSPTUM #### [facility] [address] [place] [address] Dr. Celeste Art LEUKOCYTES Negative Normal NEGATIVE [facility] Comment on above: Performed By: #### C XSPTUM #### [facility] [address] [place] [address] Dr. Celeste Art Nitrite Ql (U) Negative Normal NEGATIVE [facility] Comment on above: Performed By: #### C XSPTUM #### [facility] [address] [place] [address] Dr. Celeste Art pH (U) 6.0 [pH] Normal 5-9 [facility] Comment on above: Performed By: #### C XSPTUM #### [facility] [address] [place] [address] Dr. Celeste Art SPEC GRAVITY 1.020 Normal 1.005-<=1.025 [facility] Comment on above: Performed By: #### C XSPTUM #### [facility] [address] [place] [address] Dr. Celeste Art UA PROTEIN Negative Normal NEGATIVE/ TRACE [facility] Comment on above: Performed By: #### C XSPTUM #### [facility] [address] [place] [address] Dr. Celeste Art UR MICRO IND NOT INDICATED Normal [facility] Comment on above: Performed By: #### C XSPTUM #### [facility] [address] [place] [address] Dr. Celeste Art Urobilinogen Qn (U) 0.2 {Maycol'U}/dL Normal 0.2 - 1. 0 [facility] Comment on above: Performed By: #### C XSPTUM #### [facility] [address] [place] [address] Dr. Celeste Art PROF 14(COMP METB)on 022 Albumin [Mass/Vol] 3.7 g/dL Normal 3.4-5.0 [facility] Comment on above: Performed By: #### C MP, CRP #### [facility] [address] [place] [address] Dr. Celeste Art Albumin/Globulin [Mass ratio] 1.1 {ratio} Normal [facility] Comment on above: Performed By: #### C MP, CRP #### [facility] [address] [place] [address] Dr. Celeste Art ALP [Catalytic activity/Vol] 76 U/L Normal 46-116 [facility] Comment on above: Performed By: #### C MP, CRP #### [facility] [address] [place] [address] Dr. Celeste Art ALT [Catalytic activity/Vol] 53 U/L Normal 16-63 [facility] Comment on above: Performed By: #### C MP, CRP #### [facility] [address] [place] [address] Dr. Celeste Art Anion gap [Moles/Vol] 18.9 mmol/L Normal [facility] Comment on above: Performed By: #### C MP, CRP #### [facility] [address] [address] [address] Celeste Art AST [Catalytic activity/Vol] 20 U/L Normal 15-37 [facility] Comment on above: Performed By: #### C MP, CRP #### [facility] [address] [place] [address] Dr. Celeste Art Bilirubin [Mass/Vol] 0.3 mg/dL Normal 0.2-1.0 [facility] Comment on above: Performed By: #### C MP, CRP #### [facility] [address] [place] [address] Dr. Celeste Art Calcium [Mass/Vol] 9.1 mg/dL Normal 8.5-10.1 [facility] Comment on above: Performed By: #### C MP, CRP #### [facility] [address] [place] [address] Dr. Celeste Art Chloride [Moles/Vol] 107 mmol/L Normal 98-107 [facility] Comment on above: Performed By: #### C MP, CRP #### [facility] [address] [place] [address] Dr. Celeste Art CO2 [Moles/Vol] 22.1 mmol/L Normal 21.0-32.0 [facility] Comment on above: Performed By: #### C MP, CRP #### [facility] [address] [place] [address] Dr. Celeste Art Creatinine [Mass/Vol] 0.93 mg/dL Normal 0.70-1.30 [facility] Comment on above: Performed By: #### C MP, CRP #### [facility] [address] [place], [place] [id number] Dr. Celeste Art EGFR-AF COMORAN >60 Normal >=60 [facility] Comment on above: Performed By: #### C MP, CRP #### [facility] [address] [address] [address] Celeste Art EGFR-NON AF COMORAN >60 Normal >=60 [facility] Comment on above: Performed By: #### C MP, CRP #### [facility] [address] [address] [address] Celeste Art Globulin (S) [Mass/Vol] 3.4 g/dL Normal [facility] Comment on above: Performed By: #### C MP, CRP #### [facility] [address] [place] [address] Dr. Celeste Art Glucose [Mass/Vol] 161 mg/dL Critically high 74-106 [facility] Comment on above: Performed By: #### C MP, CRP #### [facility] [address] [place] [address] Dr. Celeste Art Potassium [Moles/Vol] 4.0 mmol/L Normal 3.5-5.1 [facility] Comment on above: Performed By: #### C MP, CRP #### [facility] [address] [place] [address] Dr. Celeste Art Protein [Mass/Vol] 7.1 g/dL Normal 6.4-8.2 [facility] Comment on above: Performed By: #### C MP, CRP #### [facility] [address] [place] [address] Dr. Celeste Art Sodium [Moles/Vol] 144 mmol/L Normal 136-145 [facility] Comment on above: Performed By: #### C MP, CRP #### [facility] [address] [place] [address] Dr. Celeste Art Urea nitrogen [Mass/Vol] 17.0 mg/dL Normal 7.0-18.0 [facility] Comment on above: Performed By: #### C MP, CRP #### [facility] [address] [place] [address] Dr. Celeste Art Urea nitrogen/Creatinine [Mass ratio] 18.3 mg/mg Normal [facility] Comment on above: Performed By: #### C MP, CRP #### [facility] [id number] Celeste Art Consenton 10-04-2021 Consent [id number]. 00CD:127 Normal [facility] Registrationon 10-04-2021 Registration [id number]. 00CD:127 [facility] Physician Referralon 021 Physician Referral [id number]#1.0 0CD:127 [facility] Encounters Encounter Date Encounter Type Care Provider Facility Start: 03-01-2023 End: 03-02-[address] ROSCOE YEE . Facility[facility] Start: 11-11-2022 End: 11-12-2022 ambulatory ALEKSANDR MASCORRO Facility:[facility] Start: 04-14-2022 End: 04-15-[address] SHALONDA CARLOS . Facility:[facility] Start: 04-04-2022 End: 04-05-[address] SHALONDA CARLOS . Facility:[facility] Payers Date Payer Category Payer Unknown [id number] 2.16.84 [id number] 1970 Unknown [id number] 2.16.84 [id number] 1970 Unknown [id number] 2.16.84 [id number] 1970 Unknown [id number] 2.16.84 [id number] 1960 Unknown [id number] 1960 Unknown [id number] Clinical Note 04-14-2022 Note Date & Type Note Facility 04-14-2022 Note EXAMINATION: XR FORE IGN BODY EYE HISTORY: Screening procedure COMPARISON: No relevant comparison available. FINDINGS: ORBITS: Negative for a metallic foreign body. OTHER: Negative. IMPRESSION: No metallic foreign bodies in the orbits Electronically authenticated by: QUOC OWENS Date: 2022-04-14 14:06 [facility] Summary Purpose Family History No Family History Records FoundNo Family History Records Found Advance Directives No Advanced Directives Records FoundNo Advanced Directives Records Found Additional Source Comments (unrecognized sect ion and content) No Status Records FoundNo Status Records Found INFORMATION SOURCE (unrecogn ized section and content) DATE CREATED AUTHOR 03/04/2022 Anthony Garlik [facility] DATE CREATED AUTHOR AUTHOR'S ORGANIZ ATION 03/02/2023 [facility] FOR RECORDS PERTAINING TO PATIENTS WHO [...] BE BASED ON THE PRIMARY CLINICAL RECORDS. [facility] [employer] [facility]. provides no warranty or guarantee of the accuracy or completeness of information in this document.
== END 2024-10-26 11:16 | disposition home or self-care (01) ==
LOC: LAB 11:15
PROVIDERS: PCP Family Medicine; Visit Provider Family Medicine
DX: J20.9 Acute bronchitis, unspecified (principal)
CPT/HCPCS: 87070; 87150; 87186; 87205

== ENCOUNTER 2025-09-09 14:50 | Outpatient (OUT) | payer BC, SELFPAY ==
--- OUTSIDE RECORDS SUMMARY | 2025-09-08 11:33 | XMS_ITS ---
Author Organization [facility] [place] Address [address] [place] [address] Care Team Providers Care Planning Lead Name Role Phone Scar Roscoe Primary Care Provider REASON FOR VISIT xray orbits for MRI Encounters Encounter Location Date Provider Diagnosis [facility] [address] [facility] [place] [address] 09/08/2025 Roscoe Scar Pre-procedural examination Z01.818 Assessments Encounter Date Diagnosis (ICD Code) Assessment Notes Treatment Notes Treatment Clinical Notes Section Notes 09/08/2025 Pre-procedural examination (ICD- 10 - Z01.818) Plan Of Treatment Pending Test Test Name Order Date XR Orbits (4 views) 09/08/2025 Progress Notes * Edwin PENNINGTON PDOB:1970 (55 yo M)Acc No.[id number]:09/08/2025 Patient:?Edwin PENNINGTON :1970???Age:55 Y???Sex:MalePhone:[phone] Address:[facility] [address] [place], [address] Subjective: * Chief Complaints: * x ray orbits for MRI * Medical History: * Surgical History: * Hospitalization/Major Diagno stic Procedure: * Medications: Objective: * Vitals: * Physical Examination: ??? Assessment: * Assessment: 1.?Pre-procedural examination - Z01.818 (Primary)??? Plan: * Treatment: ?Imaging: XR Orbits (4 views) * Procedure Codes: * true * Date:?Generated for Printing/Faxing/eTransmitting on:?09/09/2025 02:52 PM EST
--- OUTSIDE RECORDS SUMMARY | 2025-09-09 14:53 | XMS_ITS | Patient Health Record ---
Author Organization [facility] in [place] Address [address] [place] [address] Care Team Providers Care Heliarc Welder Name Role Phone Roscoe Abbott Primary Care Provider Shyanne Painter Unavailable [phone] Allergies Allergen (clinical drug ingredient) Drug/Non Drug Allergy documented on EMR Reaction Allergy Type Onset Date Status terramycin (uncoded)unknownAllergyActiveerythromycinErythromycinunknownDrug AllergyActive Results Component Value Reference Range Notes CBC AUTO DIFF Reviewed date:10/24/2024 08:53:19 PM Interpretation: Performing Lab: Notes/Report: [facility] , White Blood Count 5.5 4.0-11.0 10 3/uL Red Blood Count4.784.70-6.10 10 6/gEArnwcbvkrm76.914.0-18.0 g/nLZtlygjsdxs08.7 42.0-54.0 %Mean Corpuscular Hjftzi94.480.0-94.0 fLMean Corpuscular Hemoglobin 31.225.9-34.0 pgMean Corpuscular HGB Conc34.129.9-35.2 g/dLRed Cell Distribution Width11.911.0-15.0 %Platelet Ezegw543636-335 10 3/uLMean Platelet Volume9.09.5- 13.5 fLPerforming Lab:see noteML - [facility] LBXR chest 2V Reviewed date:09/25/2024 12:55:28 PM Interpretation: Performing Lab: Notes/Report: Source Facility: [facility]-[address], [place] [id number] XRay Report Signed Patient: KAIT MEDEROS MR#: [id number] : 1970 Acct:[id number] Age/Sex: 54 / M ADM Date: 09/24/24 Loc: [facility] Attending Dr: SHYANNE PAINTER Ordering Physician: SHYANNE PAINTER Date of Service: 09/24/24 Procedure(s): XR chest 2V Accession Number(s): [id number] cc: SHYANNE PAINTER ; Shalonda Abbott M.D. [place] [address] Patient Name: KAIT MEDEROS MRN: [facility]:[id number] date: 1970 Sex: M Assigned Patient Location: [facility] Current Patient Location: Accession/Order Number: [id number] Exam Date: 09/24/2024 11:20 Report Date: 09/25/2024 07:52 At the request of: SHYANNE PAINTER Procedure: XR chest 2V EXAMINATION: XR chest 2V HISTORY: Bronchitis J40 COMPARISON: 08/28/2023 TECHNIQUE: PA and lateral FINDINGS: LUNGS: No significant pulmonary parenchymal abnormalities. VASCULATURE: No increased pulmonary vasculature. PLEURA: No pneumothorax, effusion, or pleural thickening. CARDIAC: No cardiomegaly or cardiac silhouette abnormality. MEDIASTINUM: No visible mass or adenopathy. BONES: No fracture or visible bone lesion. OTHER: Negative. XR/XR chest 2V IMPRESSION: No acute cardiopulmonary process Electronically authenticated by: QUOC OWENS Date: 09/25/2024 07:52 Dictated By: Quoc Owens M.D. Signed By: 09/25/24 0754 DD/ 0752 TD/TT: Director Of Collections And Archives:XR chest 1V Reviewed date:10/10/2024 05:57:28 PM Interpretation: Performing Lab: Notes/Report: Source Facility: [facility]-[address] [place] [address] [place] [address] XRay Report Signed Patient: NARENDRA MEDEROS MR#: [id number] : 1970 Acct:[id number] Age/Sex: 54 / M ADM Date: 10/09/24 Loc: ER Attending Dr: Ordering Physician: Khadar Diez D.O. Date of Service: 10/09/24 Procedure(s): XR chest 1V Accession Number(s): [id number] cc: Khadar Diez D.O.; Shalonda Abbott M.D. [place] [address] Patient Name: NARENDRA MEDEROS MRN: [id number] date: 1970 Sex: M Assigned Patient Location: ER Current Patient Location: ER Accession/Order Number: [id number] Exam Date: 10/09/2024 20:43 Report Date: 10/09/2024 21:15 At the request of: KHADAR DIEZ Procedure: XR chest 1V EXAM: XR chest 1V TECHNIQUE: Single AP view chest HISTORY: shortness of breath, wheezing COMPARISON: 09/24/2024 FINDINGS: The heart and mediastinum are unremarkable. The lung harmon are clear of any acute infiltrate, effusion or mass. No acute bony abnormality. XR/XR chest 1V IMPRESSION: No acute pulmonary disease. Electronically authenticated by: GUILHERME NINO Date: 10/09/2024 21:15 Dictated By: Guilherme Nino M.D. Signed By: 10/09/242116 DD/ 14 TD/TT: Director Of Collections And Archives:CBC AUTO DIFF Reviewed date:10/20/2024 08:10:39 PM Interpretation: Performing Lab: Notes/Report: [facility] ,White Blood Count6.14.0-11.0 10 3/uLRed Blood Count4.814.70-6.10 10 6/uL Dzoaouxnpx48.014.0-18.0 g/sXDuidxwntfz30.942.0-54.0 %Mean Corpuscular Ctvvhd44.3 80.0-94.0 fLMean Corpuscular Vrmcnnncbk42.225.9-34.0 pgMean Corpuscular HGB Conc 33.429.9-35.2 g/dLRed Cell Distribution Width12.411.0-15.0 %Platelet Hfkjz936 150-450 10 3/uLMean Platelet Volume8.99.5-13.5 fLNeutrophils Percent Auto61.5 43.0-75.0 %Lymphocytes Percent Auto17.720.5-60.0 %Monocytes Percent Auto19.31.7- 12.0 %Eosinophils Percent Auto0.50.9-7.0 %Basophils Percent Auto0.70.2-2.0 % Immature Granulocytes Pct Auto0.30.0-0.5 %Neutrophils Absolute Auto3.71.4-6.5 10 3/uLLymphocytes Absolute Auto1.11.2-3.8 10 3/uLMonocytes Absolute Auto1.20.3-0.8 10 3/uLEosinophils Absolute Auto0.00.0-0.7 10 3/uLBasophils Absolute Auto0.00.0- 0.1 10 3/uLImmature Granulocytes Abs Auto0.020.00-0.03 10 3/uLPerforming Lab:see noteML - [facility] LBD-DIMER Reviewed date:10/20/2024 08:10:39 PM Interpretation: Performing Lab: Notes/Report: [facility] ,D Dimer0.21<=0.59 mg/L FEU size, and age of the thrombus. Therefore, a thromboembolic thromboembolic events can be variable due to localization, event cannot be diagnosed with certainty on the basis of the hospitalization. reference range. D-Dimers may also be elevated for a variety disease, cancer, liver disease, infection, inflammation, of disorders including advanced age, , coronary Increases in D-Dimer concentration observed with hematoma, DIC, trauma, post-surgery, diabetes, thrombolytic or anticoagulant therapy, stress, and generalized Performing Lab:see noteML - [facility] LBINFLUENZA A AND B AG Reviewed date:10/20/2024 08:10:39 PM Interpretation: Performing Lab: Notes/Report: [facility] ,Influenza Virus A AntigenNegative below the detection limit of the test. cannot be ruled out. Flu A antigen in the sample may be Negative for Flu A protein antigen. Infection due to Flu A Influenza Virus B AntigenNegative Negative for Flu B protein antigen. Infection due to Flu B cannot be ruled out. Flu B antigen in the sample may be below the detection limit of the test. Performing Lab:see noteML - [facility] LBLACTATE or LACTIC ACID Reviewed date:10/20/2024 08:15:32 PM Interpretation: Performing Lab: Notes/Report: [facility] ,Lactate/Lactic Acid3.60.4-2.0 mmol/L Kael at 2010 RESULTS CALLED TO JAMEEL JERRY RN @BY Yvonne Hui Performing Lab:see noteML - [facility] LBPROF 14(COMP METB) Reviewed date:10/20/2024 08:10:39 PM Interpretation: Performing Lab: Notes/Report: [facility] ,Tpjohk753095-838 mmol/LPotassium4.03.5-5.1 mmol/UVjfinrth70169-860 mmol/LCarbon Zhfnrge84.921.0-32.0 mmol/LAnion Gap15.2Auldhwf89613-085 mg/dLBlood Urea Knsrfrhy74.07.0-18.0 mg/dLCreatinine1.520.70-1.30 mg/dLEstimated GFR ( Kqlejww33>=60 mL/min/1.73m 2Estimated GFR (Non- Ame48>=60 mL/min/1.73m 2 BUN Creatinine Ratio9.1Ziodnax3.48.5-10.1 mg/dLBilirubin Total0.30.2-1.0 mg/dL Aspartate Amino Clfbzwkmksw7987-20 U/LAlanine Xfxaiqtsprujwuct7712-06 U/L Alkaline Pqxfefcaifl5043-300 U/LTotal Protein6.86.4-8.2 g/dLAlbumin Level3.63.4- 5.0 g/dLGlobulin3.2Albumin Globulin Ratio1.1Performing Lab:see noteML - [facility] LBPROF CHEM 8 (BAS METB) Reviewed date:10/21/2024 01:46:14 PM Interpretation: Performing Lab: Notes/Report: [facility] ,Zyscvc199622-331 mmol/LPotassium3.83.5-5.1 mmol/JPmnesmit72636-748 mmol/LCarbon Hcygrtv30.221.0-32.0 mmol/LAnion Gap12.5Axtapmb43268-654 mg/dLBlood Urea Zgjyzxia21.07.0-18.0 mg/dLCreatinine1.350.70-1.30 mg/dLEstimated GFR ( Inocencia>60>=60 mL/min/1.73m 2Estimated GFR (Non- Ame55>=60 mL/min/1.73m 2 BUN Creatinine Ratio9.8Uigwpmo7.08.5-10.1 mg/dLPerforming Lab:see note - [facility] LBTroponin I High Sensitivity Reviewed date:10/20/2024 08:10:39 PM Interpretation: Performing Lab: Notes/Report: [facility] ,Troponin I High Sensitivity<4.04.0-76.1 pg/mL UNIVERSAL DEFINITION OF MYOCARDIAL INFARCTION. THE UPPER 99TH PERCENTILE = 76.2 PG/ML REFERENCE LIMIT (URL) OF TROPONIN, DEFINED THE 99TH NOTE: HIGH-SENSITIVITY TROPONIN ASSAY IS NOT INTENDED TO BE USED IN ISOLATION BUT SHOULD BE INTERPRETED IN CONJUNCTION HAS BEEN CONFIRMED THE DECISION THRESHOLD FOR [place] PERCENTILE OF cTnI DISTRIBUTION IN A REFERENCE POPULATION, CUT-OFF POINTS HAVE BEEN ESTABLISHED BASED ON THE FOURTH WITH OTHER DIAGNOSTIC AND CLINICAL INFORMATION. DIAGNOSIS. Performing Lab:see note - [facility] LBECG 12 lead Reviewed date:10/23/2024 07:04:35 PM Interpretation: Performing Lab: Notes/Report: Source Facility: [facility]-[address] [place] [address] [place] [address] Electrocardiograph Report Signed Patient: NARENDRA MEDEROS MR#: [id number] : 1970 Acct:[id number] Age/Sex: 54 / M ADM Date: 10/20/24 Loc: ER Attending Dr: Ordering Physician: Roscoe Yee Date of Service: 10/20/24 Procedure(s): ECG 12 lead Accession Number(s): [id number] cc: [facility] Test Date: 2024-10-20 Pat Name: NARENDRA MEDEROS Department: Room: - Gender: Male Account Service Representative: : 1970 Requested By: 0939 Order Number: [id number] Reading MD: SHALONDA ABBOTT Measurements Intervals [place] Rate: 92 P: 74 MA: 136 QRS: 63 QRSD: 80 T: 77 QT: 354 QTc: 403 Interpretive Statements 1100 Sinus rhythm Non-Specific T wave inversion in aVL 9110 normal ECG Compared to ECG 03/01/2023 21:53:32 Ventricular premature complex(es) no longer present T-wave abnormality no longer present Electronically Signed On 10-23-2024 6:09:32 EST by SHALONDA ABBOTT Dictated By: Shalonda Abbott M.D. Signed By: 10/23/24608 DD/ 19 TD/TT: Director Of Collections And Archives:XR chest 2V Reviewed date:10/21/2024 01:46:14 PM Interpretation: Performing Lab: Notes/Report: Source Facility: [place] [address] XRay Report Signed Patient: NARENDRA MEDEROS MR#: [id number] : 1970 Acct:[id number] Age/Sex: 54 / M ADM Date: 10/20/24 Loc: ER Attending Dr: Ordering Physician: Roscoe Yee Date of Service: 10/20/24 Procedure(s): XR chest 2V Accession Number(s): [id number] cc: Shalonda Abbott M.D.; Roscoe Yee [place] [address] Patient Name: NARENDRA MEDEROS MRN: [id number] date: 1970 Sex: M Assigned Patient Location: ER Current Patient Location: ER Accession/Order Number: [id number] Exam Date: 10/20/2024 20:21 Report Date: 10/20/2024 21:41 At the request of: ROSCOE YEE Procedure: XR chest 2V EXAMINATION: XR chest 2V, , 10/20/2024 8:21 PM EST INDICATION: cough, sob HISTORY: Ordering Provider Reason for Exam: cough, sob Technologist Note: Additional: COMPARISON: None. TECHNIQUE: Chest x-ray: Two views. FINDINGS: No pneumothorax, pleural effusion or focal airspace consolidation. Heart is normal in size. Bony thorax is unremarkable. XR/XR chest 2V IMPRESSION: No acute cardiopulmonary process. Electronically authenticated by: MELLY MORGAN Date: 10/20/2024 21:41 Dictated By: Melly Morgan M.D. Signed By: 10/20/242143 DD/ 40 TD/TT: Director Of Collections And Archives:Troponin I High Sensitivity Reviewed date:10/21/2024 01:46:14 PM Interpretation: Performing Lab: Notes/Report: [facility] ,Troponin I High Sensitivity<4.04.0-76.1 pg/mL UNIVERSAL DEFINITION OF MYOCARDIAL INFARCTION. THE UPPER REFERENCE LIMIT (URL) OF TROPONIN, DEFINED THE 99TH 99TH PERCENTILE = 76.2 PG/ML HAS BEEN CONFIRMED THE DECISION THRESHOLD FOR MN PERCENTILE OF cTnI DISTRIBUTION IN A REFERENCE POPULATION, NOTE: HIGH-SENSITIVITY TROPONIN ASSAY IS NOT INTENDED TO BE DIAGNOSIS. USED IN ISOLATION BUT SHOULD BE INTERPRETED IN CONJUNCTION CUT-OFF POINTS HAVE BEEN ESTABLISHED BASED ON THE FOURTH WITH OTHER DIAGNOSTIC AND CLINICAL INFORMATION. Performing Lab:see note - [facility] LBLACTATE or LACTIC ACID Reviewed date:10/21/2024 01:46:14 PM Interpretation: Performing Lab: Notes/Report: [facility] ,Lactate/Lactic Acid2.50.4-2.0 mmol/L at 2224 RESULTS CALLED TO GERBER PEREZ RN @BY Yvonne Scruggs Performing Lab:see noteML - [facility] LBLAB TESTING Reviewed date:10/29/2024 06:32:34 AM Interpretation: Performing Lab: Notes/Report: [id number] Legionella pneumophila Antibody [facility] ,Miscellaneous TestCOMMENT. Performed at: [facility] Performed at: - [facility] [place] Electric Motor Assembler: Florin Amor MD, Phone: [phone] (IgG/IgM/IgA) to L. pneumophila Groups 1-6 by EIA method. Reference Range: Non Reactive Non Reactive This assay cannot differentiate between previous recommendations, culture of lower respiratory secretions exposure/infection and current infection. Serological This is a qualitative assay that detects total antibodies Electric Motor Assembler: Patrick Aleman PhD, Phone: [phone] Legionella pneumophila Abs. Note: [address] [id number] Test Ordered: [id number] Legionella pneumophila Abs. [facility] [place], [place] [id number] for diagnosis of infection with Legionella. and/or the Legionella urinary antigen test should be used testing is not recommended for diagnosis. Per current Performing Lab:see noteLC - [facility] LBManual Differential Reviewed date:10/24/2024 08:53:19 PM Interpretation: Performing Lab: Notes/Report: [facility] ,Segmented Neutrophils % Oftdyf37.043.0-75.0Lymphocytes Percent Hrtkwf31.020.5- 60.0 %Monocytes Percent Nhbpul62.01.7-12.0 %Eosinophils Percent Manual0.00.9-7.0 %Basophils Percent Manual0.00.2-2.0 %Atypical Lymphocytes % Manual2.0Segmented Neut Absolute Manual1.981.4-6.5 10 3/uLLymphocytes Absolute Manual2.091.20-3.80 10 3/uLMonocytes Absolute Manual1.320.30-0.80 10 3/uLEosinophils Absolute Manual 0.000.00-0.70 10 3/uLBasophils Abs Manual0.000.00-0.10 10 3/uLAtypical Lymphocytes Abs Man0.11Performing Lab:see noteML - [facility] LBLAB TESTING Reviewed date:10/29/2024 06:32:22 AM Interpretation: Performing Lab: Notes/Report: [id number] Bordetella pertussis Antibodies, IgG [facility] ,Miscellaneous TestCOMMENT. Electric Motor Assembler: Patrick Aleman PhD, Phone: [phone] B pertussis IgG Ab 1.52 [H ] index Electric Motor Assembler: Florin Amor MD, Phone: [phone] Performed at: [facility] Equivocal 0.95 - 1.[address] [place] [phone] Reference Range: 0.00-0.94 Positive >1.04 Test Ordered: [id number] B pertussis IgG Ab Negative <0.95 Performed at: [address] [id number] Performing Lab:see [facility] LBLAB TESTING Reviewed date:10/29/2024 07:13:21 PM Interpretation: Performing Lab: Notes/Report: [id number] Mycoplasma pneumoniae Antibodies, IgG, IgM [facility] ,Miscellaneous TestCOMMENT. Negative: <100 Indeterminate: 100 - 320 infection with Mycoplasma pneumoniae and need to be Reference Range: 0-769 Low Positive 770 - 950 IgM antibody detected. M. pneumoniae specific IgM presumptively detected. It Performed at: [facility] The reference interval established is intended as a Clinically significant amount of M. pneumoniae antibody Test Ordered: [id number] Mycoplasma pneu. IgG/IgM Abs weeks later to assure reactivity. Positive: >320 confirmed either by a positive IgM result and/or an [address] [place], [place] [id number] Electric Motor Assembler: Patrick Aleman PhD, Phone: [phone] additional specimen drawn 2-4 weeks later showing a is recommended that another sample be collected 1-2 baseline only. Values >100 may indicate a recent significant increase in antibody levels. M pneumoniae IgM Abs <770 U/mL CB not detected. M pneumoniae IgG Abs 2902 [H ] U/mL Reference Range: 0-99 Positive >950 Highly significant amount of M. pneumoniae specific Negative <770 Performing Lab[facility] LBWhite Blood Cells Reviewed date:11/04/2024 07:17:11 PM Interpretation: Performing Lab: Notes/Report: [facility] ,White Blood CellsSee Below For Report White Blood Cells White Blood CellsNone seen White Blood Cells Performing Lab:see [facility] LBEpithelial Cells Reviewed date:11/04/2024 07:17:11 PM Interpretation: Performing Lab: Notes/Report: [facility] ,Epithelial CellsSee Below For Report Epithelial Cells Few Performing Lab:see [facility] LBResult 1 Reviewed date:11/04/2024 07:17:11 PM Interpretation: Performing Lab: Notes/Report: [facility] ,Result 1See Below For Report Few gram negative rods. Result 1 Performing Lab:[facility] LBResult 2 Reviewed date:11/04/2024 07:17:11 PM Interpretation: Performing Lab: Notes/Report: [facility] ,Result 2See Below For Report Result 2 Few gram positive cocci Performing Lab:see note - [facility] LBResult 3 Reviewed date:11/04/2024 07:17:11 PM Interpretation: Performing Lab: Notes/Report: [facility] ,Result 3See Below For Report Few gram positive rods. Result 3 Performing Lab:see note - [facility] LBResult 4 Reviewed date:11/04/2024 07:17:11 PM Interpretation: Performing Lab: Notes/Report: [facility] ,Result 4See Below For Report Result 4 HISTOLOGY MANAGER Performing Lab:see note - [facility] LBGram Stain Evaluation Reviewed date:11/04/2024 07:17:11 PM Interpretation: Performing Lab: Notes/Report: [facility] ,Gram Stain EvaluationSee Below For Report This specimen is of good quality and is acceptable for routine Gram Stain Evaluation Gram Stain Evaluationbacterial culture. This specimen is of good quality and is acceptable for routine Gram Stain Evaluation Performing Lab:see note - [facility] LBLower Respiratory Culture Reviewed date:11/04/2024 07:17:11 PM Interpretation: Performing Lab: Notes/Report: [facility] ,Lower Respiratory CultureSee Below For Report Haemophilus parainfluenzae O:HAEPAR Lower Respiratory Culture Isolated Lower Respiratory Culture*ABNORMAL* Haemophilus parainfluenzae O:HAEPAR Lower Respiratory Culture Isolated Lower Respiratory CultureHeavy growth Haemophilus parainfluenzae O:HAEPAR Lower Respiratory Culture Isolated Lower Respiratory CultureAmoxicillin-clavulanic acid, azithromycin, clarithromycin, Haemophilus parainfluenzae O:HAEPAR Lower Respiratory Culture Isolated Lower Respiratory Culturecefaclor, Haemophilus parainfluenzae O:HAEPAR Lower Respiratory Culture Isolated Lower Respiratory Culturecefprozil, loracarbef, cefdinir, cefixime, cefpodoxime, Haemophilus parainfluenzae O:HAEPAR Lower Respiratory Culture Isolated Lower Respiratory Culturecefuroxime, Haemophilus parainfluenzae O:HAEPAR Lower Respiratory Culture Isolated Lower Respiratory Cultureand telithromycin are oral agents that may be used as Haemophilus parainfluenzae O:HAEPAR Lower Respiratory Culture Isolated Lower Respiratory Cultureempiric therapy Haemophilus parainfluenzae O:HAEPAR Lower Respiratory Culture Isolated Lower Respiratory Culturefor respiratory tract infections due to Haemophilus spp. The Haemophilus parainfluenzae O:HAEPAR Lower Respiratory Culture Isolated Lower Respiratory Cultureresults Haemophilus parainfluenzae O:HAEPAR Lower Respiratory Culture Isolated Lower Respiratory Cultureof susceptibility tests with these antimicrobial agents are Haemophilus parainfluenzae O:HAEPAR Lower Respiratory Culture Isolated Lower Respiratory Cultureoften not Haemophilus parainfluenzae O:HAEPAR Lower Respiratory Culture Isolated Lower Respiratory Cultureuseful for management of individual patients. (CLSI) If Haemophilus parainfluenzae O:HAEPAR Lower Respiratory Culture Isolated Lower Respiratory Culturesusceptibility Haemophilus parainfluenzae O:HAEPAR Lower Respiratory Culture Isolated Lower Respiratory Culturetesting is desired please contact the laboratory within 3 Haemophilus parainfluenzae O:HAEPAR Lower Respiratory Culture Isolated Lower Respiratory Culturedays. Haemophilus parainfluenzae O:HAEPAR Lower Respiratory Culture Isolated Lower Respiratory CultureBeta lactamase negative. Haemophilus parainfluenzae O:HAEPAR Lower Respiratory Culture Isolated Lower Respiratory Culture Haemophilus parainfluenzae O:HAEPAR Lower Respiratory Culture Isolated Lower Respiratory CultureRoutine respiratory dragan Haemophilus parainfluenzae O:HAEPAR Lower Respiratory Culture Isolated Lower Respiratory CultureModerate growth Haemophilus parainfluenzae O:HAEPAR Lower Respiratory Culture Isolated Lower Respiratory CultureSee Below For Report Haemophilus parainfluenzae O:HAEPAR Lower Respiratory Culture Isolated Lower Respiratory CulturePerformed at: - [facility] [place] Haemophilus parainfluenzae O:HAEPAR Lower Respiratory Culture Isolated Lower Respiratory [address] [place], [place] [id number] Haemophilus parainfluenzae O:HAEPAR Lower Respiratory Culture Isolated Lower Respiratory CultureLab Director: Patrick Aleman PhD, Phone: [phone] Haemophilus parainfluenzae O:HAEPAR Lower Respiratory Culture Isolated Performing Lab:see note LC - [facility] LB SEE REPORT - Limo Driver Id information not found for OBX-specific insurance producer legend Reason For Referral Diagnosis 1 Cervical radiculopat hy (M54.12) Referral Organization [facility] Referring Provider First Name Roscoe Referring Provider Last Name [facility] Referring Provider Speciality [facility] icine Referred Provider Specialty Neurosurgery Referral Priority Routine Medications Medication SIG (Take, Route, Frequency, Duration) Notes Start Date End Date Status Adderall 30 MG 1 tablet Orally dx F90.9 Twice a day; Duration: 30 days 5ActiveCeleBREX 200 MG1 capsule with food Orally Once a day; Duration: 30 days5ActiveVentolin HFA 108 (90 Base) MCG/ACTINHALE 2 PUFFS INTO THE LUNGS USING INHALER EVERY 4 HOURS NEEDED; Duration: 30 daysActiveTrelegy Ellipta 100-62.5-25 MCG/ACT1 puff Inhalation Once a day5Active tiZANidine HCl 4 MGTAKE 1 TABLET BY MOUTH EVERY MORNING & 2 TABLETS AT BEDTIME FOR 15 DAYS; Duration: 90 daysActivePantoprazole Sodium 40 MGTAKE 1 TABLET BY MOUTH TWICE A DAY; Duration: 90 daysActive Social History Tobacco Use: Social History Observation Description Date Details (start date - stop date) Current Smoker NA - NA Tobacco Use/Smoking Question Answer Notes Patient is a current smoker Alcohol Screen (Audit-C) Question Answer Notes Did you have a drink containing alcohol in the p ast year? Yes How often did you have 6 or more drinks on one occasion in the past year?Four or more times a week (4 points)How many drinks did you have on a typical day when you were drinking in the past year?5 or 6 drinks (2 points)How often did you have a drink containing alcohol in the past year?Daily or almost daily (4 points)Utzvuf09ItzmwcnjofumdaFmpzkeugRflcriz use other than smoking: Question Answer Notes Are you an other tobacco user? chewAUDIT-C (Standard) Question Answer Notes Did you have a drink containing alcohol in the p ast year? No Wllqmj5VtjjodtdcsvzkjVzefeliv Problems Problem Type SNOMED Code ICD Code Onset Dates Problem Status W/U Status Risk Notes Problem Abdominal pain (54673376) Abdominal pain (R10.9) ActiveconfirmedProblemAsthma (734745889)Asthma (J45.909)ActiveconfirmedProblem Cervical radiculopathy (17050070)Cervical radiculopathy (M54.12)Activeconfirmed ProblemArthritis (9385571)Arthritis (M19.90)ActiveconfirmedProblemRenal mass (417646084)Renal mass (N28.89)ActiveconfirmedProblemDisorder of sacrum (77422826)Low back derangement syndrome (M53.86)ActiveconfirmedProblemAttention deficit hyperactivity disorder (495349516)ADHD (F90.9)Activeconfirmed Vital Signs Heart Rate 96 /min 09/24/2024 Mkyyuxas41 %09/24/2024lood pressure mm Hg08/25/20253502Vnscnd91 in 08/25/2025lood pressure yarrxkmc060 mm Hg08/25/20259127Tiigpi616 lbs110/25/2024MI 26.4 kg/m208/25/2025 Encounters Encounter Location Date Provider Diagnosis [facility] [address] [place] [address] 09/24/2024 Shyanne Painter Bronchitis J40 [facility] [address] [place] [address] 10/23/2024 Roscoe Hoy Acute bronchitis, unspecified organism J20.9 [facility] [address] [place] [address] 02/24/2025 Roscoe Hoy Asthma J45.909 ; ADH D F90.9 ; Arthritis M19.90 and Cervical radiculopathy M54.12 [facility] [address] [place] [address] 08/25/2025 Roscoe Hoy Low back derangement syndrome M53.86 [address] mass N28.89 [facility] [address] [place] [address] 09/24/[address] [facility] [place] [address] 4Plissett Terry [facility] [place] [address]/23/2024Doug [facility] [place] [address]/03/2025Doug [facility] [place] [address]/06/2025Doug [facility] [place] [address]/Doug [facility]oyBE[facility] [place] [address]/01/2025 Roscoe HoyBV[facility] [place] [address] 01/02/2025[facility] [place] [address]/Doug HoyAcute bronchitis, unspecified organism J20.9 [facility] [address] [place] [address] 02/24/2025Doug HoyCervical radiculopathy M54.12[place] [address] [facility] [place] [address]/06/2025Doug HoyAsthma J45.909[facility] [place] [address]/11/2024 Roscoe HoyAsthma J45.909[facility] [place] [address]/Doug HoyAsthma J45.909[facility] [address] [place] [address]/12/2024Doug HoyKidney lesion N28.9 [facility] [address] [place] [address] 08/25/2025Doug HoyCervical radiculopathy M54.12[facility] [address] [place] [address]/Doug HoyPre-procedural examination Z01.818 Assessments Encounter Date Diagnosis (ICD Code) Assessment Notes Treatment Notes Treatment Clinical Notes Section Notes 09/24/2024 Bronchitis (ICD-10 - J40) states has taken zpack in past and tolerated well01/08/2025Acute bronchitis, unspecified organism (ICD-10 - J20.9) Rest and drink more liquids, especially water. You may use a humidifier or vaporizer to help keep the drainage moist. Sklb-wxz-czusxes Nasal Saline may help the stuffy and runny nose. Use Ibuprofen and or Tylenol as needed for fever, chills, body aches or pain. Children 5 years old should not be given jjos-lyh-lkrfvve cough and cold medications such as guaifenesin and dextromethorphan. If you're over age 5, you may try amsw-mbp-ifkeqwo cold medications such as guaifenesin and dextromethorphan, or multi-symptom cold reliever such as Dayquil to help reduce the symptoms. Antibiotics have been pre scribed. You should take these until completed and follow the directions. Antibiotics can sometimescause upset stomach, and in rare cases, serious allergic reactions or serious gastrointestinal problems. If you start having severe abdominal pain, severe vomiting, or bloody diarrhea, you should be r eevaluated by your physician or urgent care immediately. Follow up with your Primary Care Provider or return to clinic if symptoms do not improve within 3-5 days. If you develop severe symptoms such as shortness of breath, repeated vomiting, coughing up blood, or chest pain you should go to the emergency room or call 911 concerned for atypica infection -0 settin guop for labs and adding inhaler - higher dose steroidss -sputum cx02/24/2025sthma (ICD-10 - J45.909)08/25/2025 Renal mass (ICD-10 - N28.89)attn left renal mass08/25/2025Low back derangement syndrome (ICD-10 - M53.86)5Acute bronchitis, unspecified organism (ICD- 10 - J20.9)02/24/2025ervical radiculopathy (ICD-10 - M54.12)5Asthma (ICD-10 - J45.909)5Asthma (ICD-10 - J45.909)5Asthma (ICD-10 - J45.909)08/18/2025Kidney lesion (ICD-10 - N28.9)08/25/2025ervical radiculopathy (ICD-10 - M54.12)09/08/2025Pre-procedural examination (ICD-10 - Z01.818) 02/24/2025rthritis (ICD-10 - M19.90)02/24/2025DHD (ICD-10 - F90.9)02/24/2025 Cervical radiculopathy (ICD-10 - M54.12)08/25/2025OtherRecommended to rest and use a heating pad on the area. Take NSAIDs for pain as needed Plan Of Treatment Pending Test Test Name Order Date CMP (COMPLETE METABOLIC PANEL) HEMOGLOBIN A1C (GLYCO) 07/23/2024 MYCOPLASMA PNEUMONIAE , IGG 10/23/2024 MYCOPLASMA PNEUMONIAE , IGM 10/23/2024 LIPID PANEL (CHOL/TRIG/HDL/LDL) 07/23/20 CBC WITH DIFF (EXP 08/2025) 07/23/2024 XR Orbits (4 views) 09/08/2025 XR Chest PA and Lateral (Routine CXR) * 08/28/2023 MRI Abdomen w/o contrast 08/25/2025 MRI Cervical Spine w/o contrast * 2024 Urinalysis Microscopic 08/28/2023 LEGIONELLA PNEUMOPHILA AB (IGG), IFA 05/2025 PSA, TOTAL 07/23/2024 STOOL OCCULT BLOOD 07/23/2024 CULTURE SPUTUM 10/23/2024 CULTURE URINE 08/28/2023 GLYCOHEMOGLOBIN A1C 12/25/2023 H PYLORI ANTIBODY IGG 08/28/2023 SPUTUM GRAM STAIN 10/23/2024 US KIDNEYS BLADDER 08/18/2025 XR CHEST 2 V 09/24/2024 THYROID PANEL (T4/TSH/FREE T3) 4 THYROID PANEL (T4/TSH/FREE T3) 4 BORDETELLA PERTUSSIS AB IGG 10/23/2024 Lipid Panel 12/25/2023 Insurance Providers Payer Name Payer Address Payer Phone Subscriber Number Group Number Insured Name Patient Relationship to Insured Coverage Start Date Coverage End Date [employer] PPO PLUS LOCAL PLAN [address] [place] [address] [id number] Bernabe Mederos - patient is the insured Medications Administered Medication Instructions Date of Administration Dosage Notes Kenalog-40 mgKetorolac Qfdtjplyszgu84/13/202360 mgOrphenadrine Citrate mg Medical (General) History Medical History History ICD Code ADHD (attention deficit hyperactivity di sorder) F90.9 Asthma J45.909 Abdominal wall hernia K43.9 Cervical disc disease M50.90 COPD (chronic obstructive pulmonary dise ase) J44.9 GERD (gastroesophageal reflux disease) K 21.9 Low back pain M54.5 Surgical History Surgery Date(Month/Year) VASECTOMY Left- rotator cuff
--- OUTSIDE RECORDS SUMMARY | 2025-09-09 14:53 | XMS_ITS | Clinical Summary ---
Author Organization [facility] Address [address], [address] [place] [address] Care Team Providers Care Metaphysician Name Role Phone Unavailable Primary Care Provider Unavailabl e Allergies Active AllergyReactionsCriticalityNoted QscjKcufqjucGtnnhiobtbmm21/02/2013 Medications MedicationSigDispense QuantityRefillsLast FilledStart DateEnd DateStatus budesonide-formoterol (SYMBICORT) 160-4.5 MCG/ACT AERO Inhale 2 puffs into the lungs 2 times daily.Active Pantoprazole Sodium (PROTONIX) 40 MG PACK packet Take 40 mg by mouth daily.Active tamsulosin (FLOMAX) 0.4 MG capsule Take 0.4 mg by mouth daily.Active albuterol-ipratropium (COMBIVENT) 18-103 MCG/ACT inhaler Inhale 2 puffs into the lungs 4 times daily as needed for Wheezing. 1 Inhaler ctive Active Problems ProblemNoted DateDiagnosed DatePneumonia and vnjdnwvaj13/04/2013COPD ombrhwjzpvex48/04/2013lcohol abuse10/19/2012 Immunizations ImmunizationAdministration DatesNext DueHep B, ENGERIX-B, RECOMBIVAX-HB, (age 20y+), IM, 1mL05/30/2017 Social History Tobacco UseTypesPacks/DayYears UsedDateSmoking Tobacco: FormerAlcohol Use Standard Drinks/WeekCommentsYes0 (1 standard drink = 0.6 oz pure alcohol) occasionalSex and Gender InformationValueDate RecordedSex Assigned at BirthNot on fileLegal InoNrxh7111/28/2012 1:48 AM ESTGender IdentityNot on fileSexual OrientationNot on file Last Filed Vital Signs Vital SignReadingTime TakenCommentsBlood Hulhxhgm750/66010/21/2012 7:00 AM EST Jizcp941410/21/2012 7:00 AM WPACmriqovcrtw26.7 ??C (98.1 ??F)10/21/2012 7:00 AM ESTRespiratory Lsji162310/21/2012 7:00 AM ESTOxygen Ahiytlwozx45%10/21/2012 7:00 AM ESTInhaled Oxygen Concentration--Dhyebm43.9 kg (185 lb)10/17/2012 3:52 PM EST Hefgla604.8 cm (5' 10 )10/17/2012 3:52 PM ESTBody Mass Index26.54010/17/2012 3:52 PM EST Plan of Treatment Not on file Advance Directives TypeDate RecordedPatient RepresentativeExplanationACP-Advance Directive10/24/2012 9:51 AM * Full Code (Latest Code Status on File) Date ActivatedDate InactivatedComments10/18/2012 12:59 AM10/21/2012 3:19 PM
--- OUTSIDE RECORDS SUMMARY | 2025-09-09 14:53 | XMS_ITS | Clinical Summary ---
Author Organization [facility] Address [address] [place] [id number] Care Team Providers Care Grey Roll Worker Name Role Phone Papi Abbott MD Primary Care Provider [phone] Allergies Active AllergyReactionsCriticalityNoted DateCommentsTetracyclinesUnknown 08/18/2025 Medications MedicationSigDispense QuantityRefillsLast FilledStart DateEnd DateStatus methylPREDNISolone (MEDROL DOSE-PACK) 4 mg Dose-Pack Take as instructed per package. 21 tablet 08/18/2025 3:29 PM EST5Active cyclobenzaprine (FLEXERIL) 10 mg tablet Take 1 tablet by mouth every 8 hours as needed. 14 tablet 08/18/2025 3:29 PM EST5Active lidocaine (LIDODERM) 5 % Apply 1 patch as directed every 24 hours. 10 patch 08/18/2025 3:29 PM EST5Active cyclobenzaprine (FLEXERIL) 10 mg tablet Take 1 tablet by mouth every 8 hours as needed. 14 tablet Discontinued(.All criteria met for discontinuation) methylPREDNISolone (MEDROL DOSE-PACK) 4 mg Dose-Pack Take as instructed per package. 21 tablet Discontinued(.All criteria met for discontinuation) lidocaine (LIDODERM) 5 % Apply 1 patch as directed every 24 hours. 10 patch Discontinued(.All criteria met for discontinuation) oxyCODONE-acetaminophen (PERCOCET) 5-325 mg tablet Indications:Back spasmTake 1 tablet by mouth every 8 hours as needed for pain for up to 3 days. 9 tablet 08/18/2025 3:29 PM EST11/03/290379/03/2025Expired Encounters DateTypeDepartmentCare FfovJmmpbmrlcme43/03/2025 8:21 AM EST - 08/18/2025 3:59 PM [facility] Emergency Dept [address] [place] [address] Vikki Hopson, DO back pain, back spasm before work, took flexeril at [age] and laid out by his car, EMS called Discharge Disposition: Home08/18/2025Travelfrom Last 3 Months Social History Tobacco UseTypesPacks/DayYears UsedDateSmoking Tobacco: Never AssessedAlcohol UseStandard Drinks/WeekCommentsYes0 (1 standard drink = 0.6 oz pure alcohol) daily 5-7 drinks,Area Deprivation IndexAnswerDate RecordedNational Score (1- 100), lower number is lower kvfy033608/19/2025State Score (1-10), lower number is lower yume88010/19/2024Data from: https://www.neighborhoodatlas.medicine.[facility]/. Last address used for momudcrtqvs[address] [facility]08/19/2025Sex and Gender InformationValueDate RecordedSex Assigned at BirthNot on fileLegal YkmHvzh98/02/2012 8:40 AM EST Gender IdentityNot on fileSexual OrientationNot on file Last Filed Vital Signs Vital SignReadingTime TakenCommentsBlood Brsxxxxq403/9208/18/2025 12:54 PM EST Acwta434408/18/2025 2:25 PM CUIIpawzcngvrt11.5 ??C (97.7 ??F)08/18/2025 8:24 AM ESTRespiratory Lpyn670610/18/2024 2:25 PM ESTOxygen Ypvypsgyft20%08/18/2025 2:25 PM ESTInhaled Oxygen Concentration--Bthznx93.9 kg (185 lb)08/18/2025 8:24 AM EST Height--Body Mass Index-- Plan of Treatment Health MaintenanceDue DateLast DoneCommentsAnxiety Kxwtnmazf97/22/1987Depression Wfesttvto06/22/1987HIV Pbmcglfyw32/22/1987Hepatitis C Ooccwiyop50/22/1987 DTaP,Tdap,Td Vaccine (1 - Tdap)1988Lipid Yutoapyrz39/22/2004CT Atfzizuwufrw46/22/2014Cologuard (FIT-DNA)06/06/20148088Pinvjipavab18/22/2014 Colorectal Cancer Czwefhyut11/22/2014Fecal Occult Blood2014Prostate Cancer Screening Wscitfcddv72/22/7784Ttlrzgjnwkfbu91/22/2014Hepatitis B Vaccine (2 of 3 - 19+ 3-dose series)Pneumococcal Vaccine: 50+ (1 of 1 - PCV) 2019Shingrix Vaccine (1 of 2)2019Covid-19 Vaccine (3 - 2024- season)501/07/2022, 10/04/2021Influenza Vaccine (#1)2025Diabetes Srlplmwgk23/03/73632710/18/2024 Procedures Procedure NamePriorityDate/TimeAssociated DiagnosisCommentsURINALYSIS (WITH MICROSCOPIC) WITH CULTURE IF WOZZBPEXDWRKB31/03/2025 1:27 PM EST RQTYahoyqt88/03/2025 11:[address] LUMBAR SPINE W RECON MZFTOUIC06/03/2025 10:[address] ABD/PEL W ZQLZMFGQM38/03/2025 10:08 AM EST HIGH SENSITIVITY TROPONIN TSTAT110/18/2024 8:55 AM EST ALCOHOL/ETHANOL MUFOJYJ08/03/2025 8:55 AM EST MAGNESIUM PLMEZZR03/03/2025 8:55 AM EST CBC + JTGHUAQK46/03/2025 8:55 AM EST COMPREHENSIVE METABOLIC GSLUEWBIC12/03/2025 8:55 AM EST from Last 3 Months Results * (ABNORMAL) URINALYSIS (WITH MICROSCOPIC) WITH CULTURE IF INDICATED (08/18/2025 1:27 PM EST)ComponentValueRef RangeTest MethodAnalysis TimePerformed At Pathologist SignatureColorLight MczlxoYinoxh69/03/2025 1:41 PM ESTFAIRVIEW VMKKIDIGANGtojypwMhhbrYacgp47/03/2025 1:41 PM ESTFAIRVIEW LABORATORYGlucose, UrineNegativeTrace, Dplbsdjg37/03/2025 1:41 PM ESTFAIRVIEW LAB[facility]ORY Bilirubin, RucqvLzfqwfeyRuppdagn94/03/2025 1:41 PM ESTFAIR[facility] LAB[facility]ORY Ketones, UrineNegativeNegative, Trace08/18/2025 1:41 PM ESTFAIRVIEW LABORATORY Specific [place], Ur1.048(H)1.005 - 1.5623008/18/2025 1:41 PM ESTFAIRVIEW LABORATORYHemoglobin/Blood,UrNegativeNegative, Trace08/18/2025 1:41 PM EST [facility] LABORATORYpH, Urine7.05.0 - 8.011 1:41 PM ESTFAIRVIEW LABORATORYProtein, UrineNegativeTrace, Utksfamv96/03/2025 1:41 PM ESTFAIRVIEW GMHSFGGRDRSwkpzunioerbPzgprgQocjlv00/03/2025 1:41 PM ESTFAIRVIEW LABORATORY EatyibpkNzefmkrjVgtijfpg89/03/2025 1:41 PM ESTFAIRVIEW LABORATORYLeuk Esterase NegativeNegative, 25 Hedy/uL08/18/2025 1:41 PM ESTFAIRVIEW LABORATORYWBC, Urine 0-5 /HPF0-5 /HPF08/18/2025 1:41 PM ESTFAIRVIEW LABORATORYRBC, Urine0-3 /HPF0-3 /HPF08/18/2025 1:41 PM ESTFAIRVIEW LABORATORYSpecimen (Source)Anatomical Location / LateralityCollection Method / VolumeCollection TimeReceived Time UrineMID-STREAM URINE SPECIMEN / UnknownNon Blood / Lvxyqdd2408/18/2025 1:27 PM EST08/18/2025 1:33 PM EST Narrative Authorizing ProviderResult TypeResult StatusRachel S Pohorenhaley PA-CLABORATORY Final ResultPerforming OrganizationAddressCity/State/ZIP CodePhone Number [facility] [address] [place] [address], * EKG (08/18/2025 11:58 AM EST)ComponentValueRef RangeTest MethodAnalysis Time Performed AtPathologist SignatureVentricular Tpns375RJSMWBZEBNQ CARDIOLOGY Atrial Iwhs969IZPGAUVIDJP CARDIOLOGYP-R Aafygsne220wwOWGANRLZ CARDIOLOGYQRS Bwlleyov54xwXYZJPIRF CARDIOLOGYQT Owfjudsh015rwQOPGBEVF CARDIOLOGYQTC Calculation (Bazett)441msFAIRVIEW CARDIOLOGYCalculated P Ektj27dppfkjlSFUFZOWT CARDIOLOGYCalculated R Etij62jmkmkfiSVMOVUXF CARDIOLOGYCalculated T Axis36 degreesFAIRVIEW CARDIOLOGYSpecimen (Source)Anatomical Location / Laterality Collection Method / VolumeCollection TimeReceived Time08/18/2025 11:58 AM EST Impressions [facility] - 08/18/2025 1:09 PM EST Sinus tachycardia Right atrial enlargement Confirmed by DO HOPSON KATLYN ([id number]) on 08/18/2025 1:09:04 PM Narrative [facility] - 08/18/2025 1:09 PM EST NAME : NARENDRA PENNINGTON PID : [id number] : 1970 Gender : Male Race : ORD : Procedure Date : Aug 18 2025 11:58:04 Edit Date : Aug 18 2025 13:09:06 Diagnosis: Sinus tachycardia Right atrial enlargement Confirmed by DO HOPSON KATLYN ([id number]) on 08/18/2025 1:09:04 PM Test Reason : Location : 402 : FVED ??fved31 Overread By : DO HOPSON KATLYN Edited By : DO HOPSON KATLYN Referred By : , Acquired by : [id number], Authorizing ProviderResult TypeResult StatusCcf ProviderCARDIOLOGY_MEFinal ResultPerforming OrganizationAddressCity/State/ZIP CodePhone Number [place] [phone] [place] [address] * (ABNORMAL) CT LUMBAR SPINE W RECON DATA (08/18/2025 10:08 AM EST)Component ValueRef RangeTest MethodAnalysis TimePerformed AtPathologist Signature Radiology ResultACTIONABLE(Actionable)[place] RADIOLOGYComment: This report contains an incidental or actionable finding. ??This finding may be a new finding separate from the reason your provider ordered the imaging test or it may be an already known finding that needs additional or continued follow-up. Because of this incidental or actionable finding, you may need another test (imaging or a different type of test). ??Please contact your provider for the next steps. Anatomical RegionLateralityModalityL-spineComputed TomographySpecimen (Source) Anatomical Location / LateralityCollection Method / VolumeCollection Time Received Time08/18/2025 10:08 AM EST Impressions 08/18/2025 10:55 AM EST IMPRESSION: 1. ??No acute intra-abdominal/pelvic process. 2. ??Degenerative spine changes most pronounced at L2/3. 3. ??Indeterminate 1.1 cm superior pole left renal lesion which could represent proteinaceous/hemorrhagic cyst. ??Nonemergent renal ultrasound follow-up recommended. 4. ??Distended bladder. Acuity: Actionable Findings: Kidneys/Ureters/Bladder Routing Code: ??GU_1 Recommendation: US KIDNEY/BLADDER TimeFrame: Non-urgent, but prompt follow-up --END OF FINDING-- Sexual Assault Counsellor: INOCENTE ?? Transcribe Date/Time: Aug ??2024 10:40A Dictated by : MERLIN BELLO MD This examination was interpreted and the report reviewed and electronically signed by: MERLIN BELLO MD on Aug ??2024 10:53AM ??EST Narrative 08/18/2025 10:55 AM EST * * *Final Report* * * DATE OF EXAM: Aug ??2024 10:08AM ?? [facility] ?? 0481 ??- ??CT LUMBAR SPINE W RECON DATA -NB ??/ PROCEDURE REASON: Low back pain, trauma ? * * * * Physician Interpretation * * * * EXAMINATION: ??CT ABDOMEN AND PELVIS WITH IV CONTRAST Lumbar spine reconstructions CLINICAL HISTORY: Low back pain TECHNIQUE: CT of the abdomen and pelvis was performed using standard technique, scanning from just above the dome of the diaphragm to the symphysis pubis. MQ: ??CTAP_3 Contrast: IV: ??100 ml of Omnipaque 350 : ml of CT Radiation dose: Integrated Dose-length product (DLP) for this visit = ?? 890 mGy*cm. CT Dose Reduction Employed: Automated exposure control (AEC) COMPARISON: None. RESULT: Liver: No mass. Biliary: No bile duct dilation. ??Gallbladder normal. Spleen: No mass. No splenomegaly. Pancreas: No mass or duct dilation. Adrenals: No mass. Kidneys: 1.1 cm low-attenuation lesion upper pole left kidney higher attenuation than simple cyst. ??A few small probable left renal parapelvic cysts. ??No hydronephrosis. GI tract: No dilation or wall thickening. Appendix normal. ??No free air. Lymph nodes: No abdominal or pelvic lymphadenopathy. Mesentery/Peritoneum: No ascites or mass. Retroperitoneum: No mass. Vasculature: Abdominal aorta normal in caliber with patent celiac axis and SMA. Hepatic veins, portal vein, splenic vein, and SMV patent. Pelvis: Prostate measures approximately 4.5 cm transverse dimension. ?? Bladder is distended. Bones/Soft Tissues: No acute fracture. Lower thorax: No acute finding. Localizer images: No additional findings. LUMBAR SPINE RECONSTRUCTIONS: Lumbar vertebral body alignment and vertebral body heights are maintained. ??No acute fracture. ??Discogenic degenerative change at L2/3 where there is an element of central canal narrowing. ??Degenerative endplate osteophytes at T10/11. ??Facet joints grossly maintained. Procedure Note Provider, [facility] - 08/18/2025 * * *Final Report* * * DATE OF EXAM: Aug 18 2025 10:08AM [facility] 0481 - CT LUMBAR SPINE W RECON DATA -NB / PROCEDURE REASON: Low back pain, trauma * * * * Physician Interpretation * * * * EXAMINATION: CT ABDOMEN AND PELVIS WITH IV CONTRAST Lumbar spine reconstructions CLINICAL HISTORY: Low back pain TECHNIQUE: CT of the abdomen and pelvis was performed using standard technique, scanning from just above the dome of the diaphragm to the symphysis pubis. MQ: CTAP_3 Contrast: IV: 100 ml of Omnipaque 350 : ml of CT Radiation dose: Integrated Dose-length product (DLP) for this visit = 890 mGy*cm. CT Dose Reduction Employed: Automated exposure control (AEC) COMPARISON: None. RESULT: Liver: No mass. Biliary: No bile duct dilation. Gallbladder normal. Spleen: No mass. No splenomegaly. Pancreas: No mass or duct dilation. Adrenals: No mass. Kidneys: 1.1 cm low-attenuation lesion upper pole left kidney higher attenuation than simple cyst. A few small probable left renal parapelvic cysts. No hydronephrosis. GI tract: No dilation or wall thickening. Appendix normal. No free air. Lymph nodes: No abdominal or pelvic lymphadenopathy. Mesentery/Peritoneum: No ascites or mass. Retroperitoneum: No mass. Vasculature: Abdominal aorta normal in caliber with patent celiac axis and SMA. Hepatic veins, portal vein, splenic vein, and SMV patent. Pelvis: Prostate measures approximately 4.5 cm transverse dimension. Bladder is distended. Bones/Soft Tissues: No acute fracture. Lower thorax: No acute finding. Localizer images: No additional findings. LUMBAR SPINE RECONSTRUCTIONS: Lumbar vertebral body alignment and vertebral body heights are maintained. No acute fracture. Discogenic degenerative change at L2/3 where there is an element of central canal narrowing. Degenerative endplate osteophytes at T10/11. Facet joints grossly maintained. IMPRESSION IMPRESSION: 1. No acute intra-abdominal/pelvic process. 2. Degenerative spine changes most pronounced at L2/3. 3. Indeterminate 1.1 cm superior pole left renal lesion which could represent proteinaceous/hemorrhagic cyst. Nonemergent renal ultrasound follow-up recommended. 4. Distended bladder. Acuity: Actionable Findings: Kidneys/Ureters/Bladder Routing Code: GU_1 Recommendation: US KIDNEY/BLADDER TimeFrame: Non-urgent, but prompt follow-up --END OF FINDING-- Sexual Assault Counsellor: INOCENTE Transcribe Date/Time: Aug 18 2025 10:40A Dictated by : MERLIN BELLO MD This examination was interpreted and the report reviewed and electronically signed by: MERLIN BELLO MD on Aug 18 2025 10:53AM EST Authorizing ProviderResult TypeResult StatusRachel S Pohorence AT-AZJ-ORGCUiczj Result * (ABNORMAL) CT ABD/PEL W IVCON (08/18/2025 10:08 AM EST)ComponentValueRef Range Test MethodAnalysis TimePerformed AtPathologist SignatureRadiology Result ACTIONABLE(Actionable)[place] RADIOLOGYComment: This report contains an incidental or actionable finding. ??This finding may be a new finding separate from the reason your provider ordered the imaging test or it may be an already known finding that needs additional or continued follow-up. Because of this incidental or actionable finding, you may need another test (imaging or a different type of test). ??Please contact your provider for the next steps. Anatomical RegionLateralityModalityAbdomenComputed TomographySpecimen (Source) Anatomical Location / LateralityCollection Method / VolumeCollection Time Received Time08/18/2025 10:08 AM EST Impressions 08/18/2025 10:55 AM EST IMPRESSION: 1. ??No acute intra-abdominal/pelvic process. 2. ??Degenerative spine changes most pronounced at L2/3. 3. ??Indeterminate 1.1 cm superior pole left renal lesion which could represent proteinaceous/hemorrhagic cyst. ??Nonemergent renal ultrasound follow-up recommended. 4. ??Distended bladder. Acuity: Actionable Findings: Kidneys/Ureters/Bladder Routing Code: ??GU_1 Recommendation: US KIDNEY/BLADDER TimeFrame: Non-urgent, but prompt follow-up --END OF FINDING-- Sexual Assault Counsellor: PSCB ?? Transcribe Date/Time: Aug ??2024 10:40A Dictated by : MERLIN BELLO MD This examination was interpreted and the report reviewed and electronically signed by: MERLIN BELLO MD on Aug ??2024 10:53AM ??EST Narrative 08/18/2025 10:55 AM EST * * *Final Report* * * DATE OF EXAM: Aug ??2024 10:08AM ?? [facility] ?? 0530 ??- ??CT ABD/PEL W IVCON ??/ PROCEDURE REASON: Abdominal pain, acute, nonlocalized ? * * * * Physician Interpretation * * * * EXAMINATION: ??CT ABDOMEN AND PELVIS WITH IV CONTRAST Lumbar spine reconstructions CLINICAL HISTORY: Low back pain TECHNIQUE: CT of the abdomen and pelvis was performed using standard technique, scanning from just above the dome of the diaphragm to the symphysis pubis. MQ: ??CTAP_3 Contrast: IV: ??100 ml of Omnipaque 350 : ml of CT Radiation dose: Integrated Dose-length product (DLP) for this visit = ?? 890 mGy*cm. CT Dose Reduction Employed: Automated exposure control (AEC) COMPARISON: None. RESULT: Liver: No mass. Biliary: No bile duct dilation. ??Gallbladder normal. Spleen: No mass. No splenomegaly. Pancreas: No mass or duct dilation. Adrenals: No mass. Kidneys: 1.1 cm low-attenuation lesion upper pole left kidney higher attenuation than simple cyst. ??A few small probable left renal parapelvic cysts. ??No hydronephrosis. GI tract: No dilation or wall thickening. Appendix normal. ??No free air. Lymph nodes: No abdominal or pelvic lymphadenopathy. Mesentery/Peritoneum: No ascites or mass. Retroperitoneum: No mass. Vasculature: Abdominal aorta normal in caliber with patent celiac axis and SMA. Hepatic veins, portal vein, splenic vein, and SMV patent. Pelvis: Prostate measures approximately 4.5 cm transverse dimension. ?? Bladder is distended. Bones/Soft Tissues: No acute fracture. Lower thorax: No acute finding. Localizer images: No additional findings. LUMBAR SPINE RECONSTRUCTIONS: Lumbar vertebral body alignment and vertebral body heights are maintained. ??No acute fracture. ??Discogenic degenerative change at L2/3 where there is an element of central canal narrowing. ??Degenerative endplate osteophytes at T10/11. ??Facet joints grossly maintained. Procedure Note Provider, [facility] - 08/18/2025 * * *Final Report* * * DATE OF EXAM: Aug 18 2025 10:08AM [facility] 0530 - CT ABD/PEL W IVCON / PROCEDURE REASON: Abdominal pain, acute, nonlocalized * * * * Physician Interpretation * * * * EXAMINATION: CT ABDOMEN AND PELVIS WITH IV CONTRAST Lumbar spine reconstructions CLINICAL HISTORY: Low back pain TECHNIQUE: CT of the abdomen and pelvis was performed using standard technique, scanning from just above the dome of the diaphragm to the symphysis pubis. MQ: CTAP_3 Contrast: IV: 100 ml of Omnipaque 350 : ml of CT Radiation dose: Integrated Dose-length product (DLP) for this visit = 890 mGy*cm. CT Dose Reduction Employed: Automated exposure control (AEC) COMPARISON: None. RESULT: Liver: No mass. Biliary: No bile duct dilation. Gallbladder normal. Spleen: No mass. No splenomegaly. Pancreas: No mass or duct dilation. Adrenals: No mass. Kidneys: 1.1 cm low-attenuation lesion upper pole left kidney higher attenuation than simple cyst. A few small probable left renal parapelvic cysts. No hydronephrosis. GI tract: No dilation or wall thickening. Appendix normal. No free air. Lymph nodes: No abdominal or pelvic lymphadenopathy. Mesentery/Peritoneum: No ascites or mass. Retroperitoneum: No mass. Vasculature: Abdominal aorta normal in caliber with patent celiac axis and SMA. Hepatic veins, portal vein, splenic vein, and SMV patent. Pelvis: Prostate measures approximately 4.5 cm transverse dimension. Bladder is distended. Bones/Soft Tissues: No acute fracture. Lower thorax: No acute finding. Localizer images: No additional findings. LUMBAR SPINE RECONSTRUCTIONS: Lumbar vertebral body alignment and vertebral body heights are maintained. No acute fracture. Discogenic degenerative change at L2/3 where there is an element of central canal narrowing. Degenerative endplate osteophytes at T10/11. Facet joints grossly maintained. IMPRESSION IMPRESSION: 1. No acute intra-abdominal/pelvic process. 2. Degenerative spine changes most pronounced at L2/3. 3. Indeterminate 1.1 cm superior pole left renal lesion which could represent proteinaceous/hemorrhagic cyst. Nonemergent renal ultrasound follow-up recommended. 4. Distended bladder. Acuity: Actionable Findings: Kidneys/Ureters/Bladder Routing Code: GU_1 Recommendation: US KIDNEY/BLADDER TimeFrame: Non-urgent, but prompt follow-up --END OF FINDING-- Sexual Assault Counsellor: INOCENTE Transcribe Date/Time: Aug 18 2025 10:40A Dictated by : MERLIN BELLO MD This examination was interpreted and the report reviewed and electronically signed by: MERLIN BELLO MD on Aug 18 2025 10:53AM EST Authorizing ProviderResult TypeResult StatusRachel S Pohorence KN-HHY-JCUOIsoen Result * MAGNESIUM (08/18/2025 8:55 AM EST)ComponentValueRef RangeTest MethodAnalysis TimePerformed AtPathologist SignatureMagnesium2.01.7 - 2.3 mg/dL08/18/2025 9:29 AM ESTFAIRVIEW LABORATORYSpecimen (Source)Anatomical Location / LateralityCollection Method / VolumeCollection TimeReceived TimeBloodBLOOD SPECIMEN / UnknownVenipuncture / Mztpjdu8908/18/2025 8:55 AM EST08/18/2025 9:09 AM EST Narrative Authorizing ProviderResult TypeResult StatusRachel S Pohorence PA-CLABORATORY Final ResultPerforming OrganizationAddressCity/State/ZIP CodePhone Number [facility] [address] [place] [address], * HIGH SENSITIVITY TROPONIN T (08/18/2025 8:55 AM EST)ComponentValueRef Range Test MethodAnalysis TimePerformed AtPathologist SignatureTNT High Sensitivity8 <12 ng/L110/18/2024 9:29 AM ESTFAIRVIEW LABORATORYSpecimen (Source)Anatomical Location / LateralityCollection Method / VolumeCollection TimeReceived Time BloodBLOOD SPECIMEN / UnknownVenipuncture / Hxcsdza9808/18/2025 8:55 AM EST 08/18/2025 9:09 AM EST Narrative Authorizing ProviderResult TypeResult StatusRachel S Pohorence PA-CLABORATORY Final ResultPerforming OrganizationAddressCity/State/ZIP CodePhone Number [facility] [address] [place] [address], * (ABNORMAL) COMPREHENSIVE METABOLIC PANEL (08/18/2025 8:55 AM EST)Component ValueRef RangeTest MethodAnalysis TimePerformed AtPathologist Signature Protein, Total7.16.3 - 8.0 g/dL08/18/2025 9:29 AM ESTFAIRVIEW LAB[facility]ORY Albumin4.63.9 - 4.9 g/dL08/18/2025 9:29 AM ESTFAIRVIEW LABORATORYCalcium, Total9.18.5 - 10.2 mg/dL08/18/2025 9:29 AM ESTFAIRVIEW LABORATORYBilirubin, Total0.40.2 - 1.3 mg/dL08/18/2025 9:29 AM ESTFAIRVIEW LABORATORYAlkaline Njohratjwam3279 - 113 U/L110/18/2024 9:29 AM ESTFAIRVIEW BEONTWZGUFBKQ9936 - 40 U/L110/18/2024 9:29 AM ESTFAIRVIEW TVVTZTMPFPGKW6155 - 54 U/L110/18/2024 9:29 AM ESTFAIRVIEW CJPDFOAGQCRlxmted795(H)74 - 99 mg/dL08/18/2025 9:29 AM ESTFAIRVIEW LABORATORYComment: The [place] Diabetes Association (ADA) provides guidance for cutoff values for fasting glucose andrandom glucose. The ADA defines fasting as no caloric intake for at least 8 hours. Fasting plasma glucose results between 100 to 125 mg/dL indicate increased risk for diabetes (prediabetes). Fasting plasma glucose results greater than or equal to 126 mg/dL meet the criteria for diagnosis of diabetes. In the absence of unequivocal hyperglycemia, results should be confirmed by repeat testing. In a patient with classic symptoms of hyperglycemia or hyperglycemic crisis, random plasma glucose results greater than or equal to 200 mg/dL meet the criteria for diagnosis of diabetes. Reference: Standards of Medical Care in Diabetes 2016, [place] [employer] Association. Diabetes Care. 2016.39(Suppl 1). KWC683 - 24 mg/dL08/18/2025 9:29 AM ESTFAIRVIEW LABORATORYCreatinine0.860.73 - 1.22 mg/dL08/18/2025 9:29 AM ESTFAIRVIEW ODNGIFMCEJPdazeo057201 - 144 mmol/L 08/18/2025 9:29 AM ESTFAIRVIEW LABORATORYPotassium4.53.7 - 5.1 mmol/L110/18/2024 9:29 AM ESTFAIRVIEW MFBICNYLAZRarmtofb54970 - 107 mmol/L110/18/2024 9:29 AM EST [facility] SIVLGVKIBQXK05698 - 30 mmol/L110/18/2024 9:29 AM ESTFAIRVIEW LAB[facility]ORY Anion Fqc070 - 15 mmol/L110/18/2024 9:29 AM ESTFAIRVIEW LABORATORYEstimated Glomerular Filtration Bhxu377>=60 mL/min/1.73m 08/18/2025 9:29 AM ESTFAIRVIEW LABORATORYComment:Estimated Glomerular Filtration Rate (eGFR) is calculated using the 2020 CKD-EPI creatinine equation. This equation utilizes serum creatinine, sex, and age as parameters. The creatinine assay has traceable calibration to isotope dilution-mass spectrometry. Refer to KDIGO guidelines for clinical interpretation. In patients with unstable renal function, e.g. those with acute kidney injury, the eGFRmay not accurately reflect actual GFR.Specimen (Source)Anatomical Location / LateralityCollection Method / VolumeCollection TimeReceived TimeBloodBLOOD SPECIMEN / Unknown Venipuncture / Dkmjude9608/18/2025 8:55 AM EST08/18/2025 9:09 AM EST Narrative Authorizing ProviderResult TypeResult StatusRachel Wyatt Flor PA-CLABORATORY Final ResultPerforming OrganizationAddressCity/State/ZIP CodePhone Number [facility] [address] [place] [address], * COMPLETE BLOOD COUNT AND DIFFERENTIAL (08/18/2025 8:55 AM EST)ComponentValue Ref RangeTest MethodAnalysis TimePerformed AtPathologist SignatureWBC7.903.70 - 11.00 k/uL08/18/2025 9:11 AM ESTFAIRVIEW LABORATORYRBC5.044.20 - 6.00 m/uL 08/18/2025 9:11 AM ESTFAIRVIEW EOXNIELHABGohoxxrxzp93.013.0 - 17.0 g/dL 08/18/2025 9:11 AM [facility] RPOFWHFZOFPotbrgcewz99.239.0 - 51.0 %08/18/2025 9:11 AM [facility] HRGJOQBVGEWHB32.780.0 - 100.0 fL08/18/2025 9:11 AM [facility] MNXMSTTZRAVRQ02.726.0 - 34.0 pg08/18/2025 9:11 AM [facility] HTWFLYPIRUHGGH53.630.5 - 36.0 g/dL08/18/2025 9:11 AM [facility] RDW-CV12.011.5 - 15.0 %08/18/2025 9:11 AM [facility]ORATORYPlatelet Count [id number] - 400 k/uL08/18/2025 9:11 AM [facility]ORATORYMPV9.19.0 - 12.7 fL 08/18/2025 9:11 AM [facility]ORYNeutrophils %71.4%08/18/2025 9:11 AM [facility] Neut5.641.45 - 7.50 k/uL08/18/2025 9:11 AM [facility]ORYLymphocytes %15.2%08/18/2025 9:11 AM [facility] Abs Lymph1.201.00 - 4.00 k/uL08/18/2025 9:11 AM [facility] Monocytes %8.5%08/18/2025 9:11 AM [facility] Mono0.67<0.87 k/uL 08/18/2025 9:11 AM [facility]ORYEosinophils %3.5%08/18/2025 9:11 AM [facility] Eosin0.28<0.46 k/uL08/18/2025 9:11 AM [facility]ORYBasophils %1.1%08/18/2025 9:11 AM [facility] Baso0.09 <0.11 k/uL08/18/2025 9:11 AM [facility]ORYImmature Granulocytes %0.3% 08/18/2025 9:11 AM [facility] Immature Gran<0.03<0.10 k/uL 08/18/2025 9:11 AM [facility]ORATORYNRBC0.0/100 WBC08/18/2025 9:11 AM [facility]ORYAbsolute nRBC<0.01<0.01 k/uL08/18/2025 9:11 AM [facility]ORYDiff YhzlLhxt50/03/2025 9:11 AM [facility] LABORATORYSpecimen (Source)Anatomical Location / LateralityCollection Method / VolumeCollection TimeReceived TimeBloodBLOOD SPECIMEN / UnknownVenipuncture / Cncatqb2708/18/2025 8:55 AM EST08/18/2025 8:59 AM EST Narrative Authorizing ProviderResult TypeResult StatusRachel S Pohorence PA-CLABORATORY Final ResultPerforming OrganizationAddressCity/State/ZIP CodePhone Number [facility] [phone] * ETHANOL/ALCOHOL (08/18/2025 8:55 AM EST)ComponentValueRef RangeTest Method Analysis TimePerformed AtPathologist SignatureEthanol<11<11 mg/dL08/18/2025 9:21 AM [facility]ATORYSpecimen (Source)Anatomical Location / LateralityCollection Method / VolumeCollection TimeReceived TimeBloodBLOOD SPECIMEN / UnknownVenipuncture / Aoglwmj2808/18/2025 8:55 AM EST08/18/2025 8:58 AM EST Narrative Authorizing ProviderResult TypeResult StatusRachel S Pohorence PA-CLABORATORY Final ResultPerforming OrganizationAddressCity/State/ZIP CodePhone Number [facility] [address] [place] [address], from Last 3 Months Insurance Care Teams Team MemberRelationshipSpecialtyStart DateEnd Papi Abbott MD [address] [place] [address] PCP - GeneralFamily Txzucvqk04/3/25
--- OUTSIDE RECORDS SUMMARY | 2025-09-09 14:53 | XMS_ITS | Clinical Summary ---
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
--- OUTSIDE RECORDS SUMMARY | 2025-09-09 14:58 | XMS_ITS | CCD ---
Author Organization [facility] Care Team Providers Care Funds Development Director Name Role Phone TERRANCE ., DR LIZ Primary Care Unavailable HOY ., DR LIZ Consulting Unavailable HOY ., DR LIZ Attending Unavailable HOY ., DR LIZ Admitting Unavailable ALYSSA ., LEIF Consulting Unavailable LAEKSANDR MASCORRO Consulting Unavailable QUOC MALDONADO Consulting Unavailable HOY ., DR LIZ Primary Care Unavailable HOY ., DR LIZ Consulting Unavailable HOY ., DR LIZ Attending Unavailable HOY ., DR LIZ Admitting Unavailable HYANNIS, DR QUOC Oh Consulting Unavailable MARKER ., DR MALHOTRA Admitting Unavailable MARKER ., DR MALHOTRA Consulting Unavailable MARKER ., DR MALHOTRA Attending Unavailable HOY ., DR LIZ Primary Care Unavailable UNLU, EDMUNDO Consulting Unavailable PADDY MASCORROYL Admitting Unavailable ALEKSANDR MASCORRO Consulting Unavailable ALEKSANDR MASCORRO Attending Unavailable TERRANCE ., DR LIZ Primary Care Unavailable QUOC MALDONADO Consulting Unavailable SHALONDA CARLOS Primary Care Unavailable DENIA HOPSON Attending Unavailable Allergies Allergy ClassificationReported Allergen(s)Allergy TypeDate of OnsetReaction(s) Facility (1 source)ErythromycinDrug Bsisagq62-55-0708Aoy [facility] Repository (1 source)OxytetracyclineDrug Tnxvyqq31-09-3813Cbc [facility] Repository (1 source)Tetracyclines; Translations: [TETRACYCLINES]Propensity to adverse reactions to drug (disorder)57-65-9420[facility] [place] Rep[facility] Problems Active Problems Problem ClassificationProblemDateDocumented DateEpisodic/ChronicAsthma (1 source)Unspecified asthma, uncomplicated; Translations: [UNSPECIFIED ASTHMA UNCOMPLICATED]Onset: 45-24-0480PyleilnRondsxqrb-deficit, conduct, and disruptive behavior disorders (1 source)Attention-deficit hyperactivity disorder, unspecified type; Translations: [ADHD UNSPECIFIED TYPE]Onset: 36-73-1129NbibustWnofs diseases of kidney and ureters (1 source)Disorder of kidney and ureter, unspecified; Translations: [Renal lesion]Onset: 78-54-8700BqqzizdzHneenvrwqgr; intervertebral disc disorders; other back problems (2 sources)Muscle spasm of back; Translations: [Dorsalgia, unspecified]Onset: 45-84-4850TlewzhyxNxwhnznge-related disorders (1 source)Nicotine dependence, chewing tobacco, uncomplicated; Translations: [NICOTINE DEPEND CHEW TOBACCO UNCOMP]Onset: 47-29-7204TncjiojGlijrcrygsvt (1 source)CONTACT W/AND (SUSP) EXPOS COVID-19; Translations: [CONTACT W/AND (SUSP) EXPOS COVID-19]Onset: 20-57-7391Xnvergicyack (3 sources)LOW BACK PAIN, UNSPECIFIED; Translations: [LOW BACK PAIN, UNSPECIFIED]Onset: 69-76-1150Bxzceczdfwyt (1 source)Degeneration of intervertebral disc of lumbar region with discogenic back pain; Translations: [Degeneration of intervertebral disc of lumbar region with discogenic back pain]Onset: 08-18-2025 Past or Other Problems Problem ClassificationProblemDateDocumented DateEpisodic/ChronicAcute bronchitis (1 source)Acute bronchitis, unspecified; Translations: [ACUTE BRONCHITIS UNSPECIFIED]Onset: 67-18-4924WqaknapwXinhb aftercare (1 source)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; Translations: [OTH FDC CURRENT DRUG THERAPY]Onset: 86-78-8326FnydhwdtZiodd lower respiratory disease (3 sources)Shortness of breath; Translations: [SHORTNESS OF BREATH]Onset: 89-08-9021CoiyqghaTcrljpsir and history of mental health and substance abuse codes (1 source)Personal history of nicotine dependence; Translations: [PERSONAL HISTORY OF NICOTINE DEPEND]Onset: 74-99-4895VzsdaxmkSzodemkpynwq (1 source)LOW BACK PAIN, UNSPECIFIED; Translations: [LOW BACK PAIN, UNSPECIFIED] Onset: 04-14-2022 Results Test NameValueInterpretationReference RangeFacilDignity Health Arizona Specialty HospitalCOon 91-06-3515IJPIIhxwcr TextNormalClevelUniversity Hospitals Health System 73-79-5779LHQQXU HEALTHHNO ID: [id number] Author: ED VILCHIS TECHNOLOGIST Service: ? Author Type: Technologist Type: Allied Health Filed: 08/18/2025 09:48 Note Text: Radiology Service Progress Note PATIENT NAME: Edwin Mederos DATE OF SERVICE: August 18, 2025 TIME: 9:47 AM PATIENT IDENTITY VERIFICATION COMPLETED USING TWO (2) IDENTIFIERS: Name and Date of confirmed by patient verbally and Name and Date of confirmed by identification band. FALL SCREENING: Has the patient had 2 falls in the last year or 1 fall with injury or currently using an Ambulatory Assistive Device (Walker, Cane, Wheelchair, Crutches, etc.)? No PATIENT GENDER DATA: Assigned male at PATIENT RELEVANT IMPLANT DATA REVIEWED: Not Applicable PATIENT PRESENTS WITH AN IMPLANTABLE OR ATTACHED RAIL SPLITTER: No RADIOLOGY DEPARTMENT: CT; Exam(s) Completed: Abdomen/Pelvis and Spine . Anesthesia: No PERIPHERAL IV DATA: Inpatient: see LDA documentation SIGNED BY: TECHNOLOGIST Phi August 18, 2025 9:47 AMNormalKindred Hospital Northeast W Auto Differential panel (Bld)on 40-91-0693Dtupeufyz (Bld) [#/Vol]0.09 10*3/uLNormal<0.11Truesdale HospitalComment on above:Order Comment: Specimen Type: BLOOD SPECIMEN Ordering Facility: [facility] Address: [address] [place], [place] [address]Performed By: #### 14004-8 #### [facility] CLIA [id number] [address] [place] [address] [place] AMERICABasophils/100 WBC (Bld)1.1 %Normal Truesdale HospitalComment on above:Order Comment: Specimen Type: BLOOD SPECIMEN Ordering Facility: [facility] Address: [address] [place], [place] [address]Performed By: #### 53198-8 #### [facility] CLIA [id number] [address] [place] [address] [place] AMERICADifferential cell count method Nom (Bld)AutoNormalTruesdale HospitalComment on above:Order Comment: Specimen Type: BLOOD SPECIMEN Ordering Facility: [facility] Address: [address] [place], [place] [address]Performed By: #### 74618-6 #### [facility] CLIA [id number] [address] [place] [address] [place] AMERICAEosinophils (Bld) [#/Vol]0.28 10*3/uLNormal<0.46[facility] HospitalComment on above:Order Comment: Specimen Type: BLOOD SPECIMEN Ordering Facility: [facility] Address: [address] [place], [place] [address]Performed By: #### 64493-9 #### [facility] CLIA [id number] [address] [place] [address] [place] AMERICAEosinophils/100 WBC (Bld)3.5 %Normal [facility] HospitalComment on above:Order Comment: Specimen Type: BLOOD SPECIMEN Ordering Facility: [facility] Address: [address] [place], [place] [address]Performed By: #### 23668-3 #### [facility] IA [id number] [address] [place] [address] [place] AMERICAErythrocyte distribution width (RBC) [Ratio]12.0 %Nxxamr04.5-15.0Wallowa HospitalComment on above:Order Comment: Specimen Type: BLOOD SPECIMEN Ordering Facility: [facility] Address: [address] [place], [place] [address]Performed By: #### 28078-6 #### [facility] CLIA [id number] [address] [place] [address] [place] AMERICAHematocrit (Bld) [Volume fraction] 46.2 %Rrpere10.0-51.0[facility] HospitalComment on above:Order Comment: Specimen Type: BLOOD SPECIMEN Ordering Facility: [facility] Address: [address] [place], [place] [address]Performed By: #### 52585-8 #### [facility] CLIA [id number] [address] [place] [address] [place] AMERICAHemoglobin (Bld) [Mass/Vol]16.0 g/dL Fivmxm44.0-17.0[facility] HospitalComment on above:Order Comment: Specimen Type: BLOOD SPECIMEN Ordering Facility: [facility] Address: [address] [place], [place] [address]Performed By: #### 57312-0 #### [facility] CLIA [id number] [address] [place] [address] [place] AMERICAImmature granulocytes (Bld) [#/Vol] 10*3/uLNormal<0.10[facility] HospitalComment on above:Order Comment: Specimen Type: BLOOD SPECIMEN Ordering Facility: [facility] Address: [address] [place], [place] [address]Performed By: #### 56734-7 #### [facility] CLIA [id number] [address] [place], [place] [address] [place] AMERICAImmature granulocytes/100 WBC (Bld) 0.3 %NormalWallowa HospitalComment on above:Order Comment: Specimen Type: BLOOD SPECIMEN Ordering Facility: [facility] Address: [address] [place], [place] [address]Performed By: #### 69401-8 #### [facility] CLIA [id number] [address] [place] [address] [place] AMERICALymphocytes (Bld) [#/Vol]1.20 10*3/uLNormal1.00-4.00[facility] HospitalComment on above:Order Comment: Specimen Type: BLOOD SPECIMEN Ordering Facility: [facility] Address: [address] [place], [place] [address]Performed By: #### 29912-0 #### [facility] CLIA [id number] [address] [place], [place] [address] [place] OF AMERICALymphocytes/100 WBC (Bld)15.2 % NormalWallowa HospitalComment on above:Order Comment: Specimen Type: BLOOD SPECIMEN Ordering Facility: [facility] Address: [address] [place], [place] [address]Performed By: #### 94082-3 #### [facility] CLIA [id number] [address] [place] [address] [place] AMERICANEWARK[facility] (RBC) [Entitic mass]31.7 pg Ptqoms82.0-34.0[facility] HospitalComment on above:Order Comment: Specimen Type: BLOOD SPECIMEN Ordering Facility: [facility] Address: [address] [place], [place] [address]Performed By: #### 69867-8 #### [facility] CLIA [id number] [address] [place] [address] [place] [facility]ITALMCHC (RBC) [Mass/Vol]34.6 g/dLNormal 30.5-36.0[facility] HospitalComment on above:Order Comment: Specimen Type: BLOOD SPECIMEN Ordering Facility: [facility] Address: [address] [place], [place] [address]Performed By: #### 67322-6 #### [facility] IA [id number] [address] [place], [place] [address]V (RBC) [Entitic vol]91.7 fLNormal 80.0-100.0[facility] HospitalComment on above:Order Comment: Specimen Type: BLOOD SPECIMEN Ordering Facility: [facility] Address: [address] [place], [place] [address]Performed By: #### 93473-2 #### [facility] CLIA [id number] [address] [place] [address] [place] AMERICAMonocytes (Bld) [#/Vol]0.67 10*3/uL Normal<0.87[facility] HospitalComment on above:Order Comment: Specimen Type: BLOOD SPECIMEN Ordering Facility: [facility] Address: [address] [place], [place] [address]Performed By: #### 25942-8 #### [facility] CLIA [id number] [address] [place] [address] [place] AMERICAMonocytes/100 WBC (Bld)8.5 %Normal [facility] HospitalComment on above:Order Comment: Specimen Type: BLOOD SPECIMEN Ordering Facility: [facility] Address: [address] [place], [place] [address]Performed By: #### 79827-5 #### [facility] CLIA [id number] [address] [place] [address] [place] AMERICANeutrophils (Bld) [#/Vol]5.64 10*3/uLNormal1.45-7.50[facility] HospitalComment on above:Order Comment: Specimen Type: BLOOD SPECIMEN Ordering Facility: [facility] Address: [address] [place], [place] [address]Performed By: #### 85681-2 #### [facility] CLIA [id number] [address] [place] [address] [place] AMERICANeutrophils/100 WBC (Bld)71.4 % NormalWallowa HospitalComment on above:Order Comment: Specimen Type: BLOOD SPECIMEN Ordering Facility: [facility] Address: [address] [place], [place] [address]Performed By: #### 26688-2 #### [facility] CLIA [id number] [address] [place] [address] [place] AMERICANucleated RBC (Bld) [#/Vol]10*3/uL Normal<0.01[facility] HospitalComment on above:Order Comment: Specimen Type: BLOOD SPECIMEN Ordering Facility: [facility] Address: [address] [place], [place] [address]Performed By: #### 62819-6 #### [facility] CLIA [id number] [address] [place] [address] [place] AMERICANucleated RBC/100 WBC (Bld) [Ratio] 0.0 /100 WBCNormalWallowa HospitalComment on above:Order Comment: Specimen Type: BLOOD SPECIMEN Ordering Facility: [facility] Address: [address] [place], [place] [address]Performed By: #### 62921-0 #### [facility] CLIA [id number] [address] [place] [address] [place] AMERICAPlatelet mean volume (Bld) [Entitic vol]9.1 fLNormal9.0-12.7Fstillman infirmary HospitalComment on above:Order Comment: Specimen Type: BLOOD SPECIMEN Ordering Facility: [facility] Address: [address] [place], [place] [address]Performed By: #### 09325-0 #### [facility] CLIA [id number] [address] [place] [address] [place] AMERICAPlatelets (Bld) [#/Vol]275 10*3/uL Dyvptd265-036Tevwdhbk HospitalComment on above:Order Comment: Specimen Type: BLOOD SPECIMEN Ordering Facility: [facility] Address: [address] [place], [place] [address]Performed By: #### 64054-1 #### [facility] CLIA [id number] [address] [place], [place] [address]RBC (Bld) [#/Vol]5.04 10*6/uLNormal 4.20-6.00[facility] HospitalComment on above:Order Comment: Specimen Type: BLOOD SPECIMEN Ordering Facility: [facility] Address: [address] [place], [place] [address]Performed By: #### 84547-9 #### [facility] CLIA [id number] [address] [place], [place] [address]WBC (Bld) [#/Vol]7.90 10*3/uLNormal 3.70-11.00[facility] HospitalComment on above:Order Comment: Specimen Type: BLOOD SPECIMEN Ordering Facility: [facility] Address: [address] [place], [place] [address]Performed By: #### 59825-0 #### [facility] CLIA [id number] [address] [place] [address] OF AMERICACT ABD/PEL W IVCONon 28-80-7788HO ABD/PEL W IVCON* * *Final Report* * * DATE OF [...] osteophytes at T10/11. Facet joints grossly maintained. IMPRESSION: 1. No acute intra-abdominal/pelvic process. 2. Degenerative spine changes most pronounced at L2/3. 3. Indeterminate 1.1 cm superior pole left renal lesion which could represent proteinaceous/hemorrhagic cyst. Nonemergent renal ultrasound follow-up recommended. 4. Distended bladder. Acuity: Actionable Findings: Kidneys/Ureters/Bladder Routing Code: GU_1 Recommendation: US KIDNEY/BLADDER TimeFrame: Non-urgent, but prompt follow-up --END OF FINDING-- Security Control Assessor: INOCENTE Transcribe Date/Time: Aug 18 2025 10:40A Dictated by : MERLIN BELLO MD This examination was interpreted and the report reviewed and electronically signed by: MERLIN BELLO MD on Aug 18 2025 10:53AM EST [id number] ACTIONABLEInvalid Interpretation CodeFairview HospitalCT LUMBAR SPINE W RECON DATA -NBon 26-07-8035ZV LUMBAR SPINE W RECON DATA -NB* * *Final Report* * * DATE OF EXAM: Aug 18 2025 10:08AM [facility] 0481 - CT LUMBAR SPINE W RECON [...] osteophytes at T10/11. Facet joints grossly maintained. IMPRESSION: 1. No acute intra-abdominal/pelvic process. 2. Degenerative spine changes most pronounced at L2/3. 3. Indeterminate 1.1 cm superior pole left renal lesion which could represent proteinaceous/hemorrhagic cyst. Nonemergent renal ultrasound follow-up recommended. 4. Distended bladder. Acuity: Actionable Findings: Kidneys/Ureters/Bladder Routing Code: GU_1 Recommendation: US KIDNEY/BLADDER TimeFrame: Non-urgent, but prompt follow-up --END OF FINDING-- Security Control Assessor: INOCENTE Transcribe Date/Time: Aug 18 2025 10:40A Dictated by : MERLIN BELLO MD This examination was interpreted and the report reviewed and electronically signed by: MERLIN BELLO MD on Aug 18 2025 10:53AM EST [id number] [id number] Interpretation CodeTruesdale HospitalComprehensive metabolic 2000 panelon 85-99-8066Dnrpngc [Mass/Vol]4.6 g/dLNormal3.9-4.9[facility] Comment on above:Order Comment: Specimen Type: BLOOD SPECIMEN Ordering Facility: [facility] Address: [address] [place], [place] [address]Performed By: #### HSTNT, , #### [facility] CLIA [id number] [address] [place] [address] [place] AMERICAALP [Catalytic activity/Vol]87 U/L Pqklpd91-490Ryhwlzhq HospitalComment on above:Order Comment: Specimen Type: BLOOD SPECIMEN Ordering Facility: [facility] Address: [address] [place], [place] [address]Performed By: #### HSTNT, , #### [facility] CLIA [id number] [address] [place] [address] [place] AMERICAALT [Catalytic activity/Vol]47 U/L Vscrce77-66Yewocncu HospitalComment on above:Order Comment: Specimen Type: BLOOD SPECIMEN Ordering Facility: [facility] Address: [address] [place], [place] [address]Performed By: #### HSTNT, , #### [facility] CLIA [id number] [address] [place], [place] [address] [place] AMERICAAnion gap [Moles/Vol]13 mmol/LNormal 8-15[facility] HospitalComment on above:Order Comment: Specimen Type: BLOOD SPECIMEN Ordering Facility: [facility] Address: [address] [place], [place] [address]Performed By: #### HSTNT, , #### [facility] CLIA [id number] [place] [address] [place] AMERICAAST [Catalytic activity/Vol]35 U/L Nxecvy48-36Alnwqldy HospitalComment on above:Order Comment: Specimen Type: BLOOD SPECIMEN Ordering Facility: [facility] Address: [address] [place], [place] [address]Performed By: #### HSTNT, , #### [facility] CLIA [id number] [place] [address] [place] AMERICABilirubin [Mass/Vol]0.4 mg/dLNormal 0.2-1.3Fstillman infirmary HospitalComment on above:Order Comment: Specimen Type: BLOOD SPECIMEN Ordering Facility: [facility] Address: [address] [place], [place] [address]Performed By: #### HSTNT, , #### [facility] CLIA [id number] [address] [place] [address] [place] AMERICACalcium [Mass/Vol]9.1 mg/dLNormal 8.5-10.2Fstillman infirmary HospitalComment on above:Order Comment: Specimen Type: BLOOD SPECIMEN Ordering Facility: [facility] Address: [address] [place], [place] [address]Performed By: #### HSTNT, , #### [facility] CLIA [id number] [place] [address] [place] AMERICAChloride [Moles/Vol]103 mmol/LNormal 98-107T[facility] HospitalComment on above:Order Comment: Specimen Type: BLOOD SPECIMEN Ordering Facility: [facility] Address: [address] [place], [place] [address]Performed By: #### HSTNT, , #### [facility] CLIA [id number] [place] [address] [place] AMERICACO2 [Moles/Vol]23 mmol/QEidkpo41-99 [facility] on above:Order Comment: Specimen Type: BLOOD SPECIMEN Ordering Facility: [facility] Address: [address] [place], [place] [address]Performed By: #### HSTNT, , #### [facility] CLIA [id number] [address] [place] [address] [place] AMERICACreatinine [Mass/Vol]0.86 mg/dL Normal0.73-1.22[facility] on above:Order Comment: Specimen Type: BLOOD SPECIMEN Ordering Facility: [facility] Address: [address] [place], [place] [address]Performed By: #### HSTNT, , #### [facility] CLIA [id number] [address] [place] [address] [place] AMERICAeGFRcr SerPlBld CKD-EPI 3121962 mL/min/1.73m???Normal>=60[facility] on above:Order Comment: Specimen Type: BLOOD SPECIMEN Ordering Facility: [facility] Address: [address] [place], [place] [address]Result Comment: Estimated Glomerular Filtration Rate (eGFR) is calculated using the 2020 CKD-EPI cre atinine equation. This equation utilizes serum creatinine, sex, and age as parameters. The creatinine assay has traceable calibration to isotope dilution- mass spectrometry. Refer to KDIGO guidelines for clinical interpretation. In patients with unstable renal function, e.g. those with acute kidney injury, the eGFR may not accurately reflect actual GFR.Performed By: #### HSTNT, , #### [facility] CLIA [id number] [address] [place] [address] [place] AMERICAGlucose [Mass/Vol]102 mg/bKGglg55-57 [facility] on above:Order Comment: Specimen Type: BLOOD SPECIMEN Ordering Facility: [facility] Address: [address] [place], [place] [address]Result Comment: The [place] Diabetes Association (ADA) provides guidance for cutoff values for fasting glucose and random glucose. The ADA defines fasting as no [...] Standards of Medical Care in Diabetes 2016, [place] [employer]. Diabetes Care. 2016.39(Suppl 1).Performed By: #### HSTNT, , #### [facility] CLIA [id number] [address] [place] [address] [place] AMERICAPotassium [Moles/Vol]4.5 mmol/L Normal3.7-5.1FPittsfield General HospitalComment on above:Order Comment: Specimen Type: BLOOD SPECIMEN Ordering Facility: [facility] Address: [address] [place], [place] [address]Performed By: #### HSTNT, , #### [facility] CLIA [id number] [address] [place] [address] [place] AMERICAProtein [Mass/Vol]7.1 g/dLNormal 6.3-8.0FaFoxborough State HospitalComment on above:Order Comment: Specimen Type: BLOOD SPECIMEN Ordering Facility: [facility] Address: [address] [place], [place] [address]Performed By: #### HSTNT, , #### [facility] CLIA [id number] [address] [place] [address] [place] AMERICASodium [Moles/Vol]139 mmol/LNormal 136-144FaFoxborough State HospitalComment on above:Order Comment: Specimen Type: BLOOD SPECIMEN Ordering Facility: [facility] Address: [address] [place], [place] [address]Performed By: #### HSTNT, , #### [facility] CLIA [id number] [address] [place] [address] [place] AMERICAUrea nitrogen [Mass/Vol]13 mg/dL Normal9-24Wallowa HospitalComment on above:Order Comment: Specimen Type: BLOOD SPECIMEN Ordering Facility: [facility] Address: [facility] [place], [place] [address]Performed By: #### HSTNT, 02320-8, 51036-7 #### [facility] CLIA [id number] [address] [place], [place] [address]ED NOTEon 72-79-0976PX NOTEHNO ID: [id number] Author: SHANIQUA ORTA, FRANKLIN Service: ? Author Type: Registered Nurse Type: ED Notes Filed: 08/18/2025 15:58 Note Text: Discharge teaching discussed with pt. Medications, times to return to the ED, and follow up care discussed. Pt verbalizes understanding. No further questions at this time. Pt is stable and ambulatory upon discharge. Pt is a/o x 3; breathing is even and unlabored on room air. No distress noted. Pt leaves ED with all belongings.[facility]iumED NOTEHNO ID: [id number] Author: KEILA GRIGSBY, FRANKLIN Service: ? Author Type: Registered Nurse Type: ED Notes Filed: 08/18/2025 13:32 Note Text: Pt ambulated to bathroom slowly and with pain. Voided 650 PVR 48cc. LIP aware [facility] NOTEHNO ID: [id number] Author: BRUNO PENA RN Service: ? Author Type: Registered Nurse Type: ED Notes Filed: 08/18/2025 08:28 Note Text: Bed: 31-ED Expected date: 08/18/25 Expected time: 8:17 AM Means of arrival: [facility] Comments: 55 M Back spasms at work, was laying in parking lot upon EMS arrival P100 98%RANWrentham Developmental CenterED PROV NOTEon 67-51-6810QE PROV NOTEHNO ID: [id number] Author: DENIA HOPSON DO Service: Emergency Medicine Author Type: Physician Type: ED Provider Notes Filed: 08/18/2025 15:28 Note Text: ED Provider Note Patient Name: Edwin Mederos : 1970 SERVICE DATE: 08/18/25 History Patient presents with: Back Pain: back pain, back spasm before work, took flexeril at seven and laid out by his car, CC: back spasm / pain 55-year-old male presenting to ED for evaluation above complaint. Patient states while getting something out of his truck today he started to experience a low back spasm and pain. He states when he gets the spasms it takes him to his feet . He has been dealing with back pain and spasms over the last 8+ years he reports. States he has been extensively worked up for this in [place], [place] (this is where he lives) but no one has been able to give him an answer . States he has had MRIs, CT imaging, etc. Patient took a Flexeril this morning with some pain relief but still having pain in his back when he moves. Pain is worsened w movement and better rest. No numbness, tingle, weakness of extremities. History provided by: Medical records and patient History reviewed. No pertinent past medical history. History reviewed. No pertinent surgical history. No family history on file. Social History[1] ALLERGIES Allergen Reactions Tetracyclines Unknown Review of Systems Constitutional: Negative for chills and fever. Respiratory: Negative for shortness of breath. Cardiovascular: Negative for chest pain. Gastrointestinal: Negative for abdominal pain, nausea and vomiting. Genitourinary: Negative for dysuria, flank pain and frequency. Musculoskeletal: Positive for back pain. Neurological: Negative for weakness and numbness. Hematological: Does not bruise/bleed easily. Psychiatric/Behavioral: The patient is nervous/anxious. All other systems reviewed and are negative. Physical Exam Vitals [08/18/25 0824] BP Pulse Temp Temp src Resp SpO2 Weight Height 139/69 75 36.5 ?C (97.7 ?F) Oral 18 98 % 83.9 kg (185 lb) -- Physical Exam Vitals and nursing note reviewed. Constitutional: General: He is not in acute distress. Appearance: He is well-developed. He is not ill-appearing or toxic-appearing. Comments: Well appearing. No acute distress. Hemodynamically stable. HENT: Head: Normocephalic and atraumatic. Right Ear: External ear normal. Left Ear: External ear normal. Nose: Nose normal. Eyes: Conjunctiva/sclera: Conjunctivae normal. Pupils: Pupils are equal, round, and reactive to light. Neck: Trachea: No tracheal deviation. Cardiovascular: Rate and Rhythm: Normal rate and regular rhythm. Pulmonary: Effort: Pulmonary effort is normal. No respiratory distress. Breath sounds: Normal breath sounds. No stridor. Abdominal: General: Bowel sounds are normal. There is no distension. Palpations: Abdomen is soft. Tenderness: There is no abdominal tenderness. There is no right CVA tenderness, left CVA tenderness, guarding or rebound. Negative signs include Catalan's sign and McBurney's sign. Comments: Abdomen soft and non-distended No peritoneal signs Musculoskeletal: General: Normal range of motion. Cervical back: Normal range of motion and neck supple. Comments: There is direct pain to palpation of lumbar paraspinal muscles and lower back back muscles. Palpation reproduces symptoms. No midline tenderness. Flexion/extension/rotation reproduces pain. No CVA tenderness Intact 2+ patellar reflexes and symmetric bilat No foot drop Compartments soft Intact proximal and distal pulses 2+ Neurovascularly intact No rashes, bruising, or wounds noted on skin exam Full strength and sensation exam - strength 5/5 and symmetric to hip flex/ext, knee flex/ext, mahin/plantar flexion, great toe flex/ext B/L, normal sensation among all dermatomes BL lower extremities Gait testing normal and ambulated without difficulty in ED Skin: General: Skin is warm and dry. Capillary Refill: Capillary refill takes less than 2 seconds. Comments: No rashes appreciated Neurological: General: No focal deficit present. Mental Status: He is alert and oriented to person, place, and time. Cranial Nerves: Cranial nerves 2-12 are intact. Sensory: Sensation is intact. No sensory deficit. Motor: Motor function is intact. Coordination: Coordination is intact. Gait: Gait is intact. Comments: NIH = 0 No focal neuro deficit Psychiatric: Mood and Affect: Mood is anxious. Diagnostic Testing ED Labs Ordered and Reviewed COMPREHENSIVE METABOLIC PANEL - Abnormal; Notable for the following components: Result Value Ref Range Glucose 102 (*) 74 - 99 mg/dL All other components within normal limits URINALYSIS (WITH MICROSCOPIC) WITH CULTURE IF INDICATED - Abnormal; Notable for the following components: Specific Carnegie, Ur 1.048 (*) 1.005 - 1.030 All other components within nor (more content not included)...NormalFall River [facility] [id number]ekbw Rate : 106 BPM Atrial Rate : 106 BPM P-R Interval : 153 ms QRS Duration : 83 ms Q-T Interval : 332 ms QTC Calculation(Bazett) : 441 ms Calculated P Hawthorne : 66 degrees Calculated R Hawthorne : 50 degrees Calculated T Hawthorne : 36 degrees Sinus tachycardia Right atrial enlargement Confirmed by DO HOPSON KATLYN ([id number]) on 08/18/2025 1:09:04 PM NAME : EDWIN MEDEROS PID : [id number] : 1970 Gender : Male Race : ORD : Procedure Date : Aug 18 2025 11:58:04 Edit Date : Aug 18 2025 13:09:06 Diagnosis: Sinus tachycardia Right atrial enlargement Confirmed by DO HOPSON KATLYN ([id number]) on 08/18/2025 1:09:04 PM Test Reason : Location : 402 : ED fved31 Overread By : DO HOPSON KATLYN Edited By : DO HOPSON KATLYN Referred By : , Acquired by : [id number],[facility]iumEthanol SerPl-mCncon 08-18-2025 Ethanol [Mass/Vol]mg/dLNormal<11[facility]dale HospitalComment on above:Order Comment: Specimen Type: BLOOD SPECIMEN Ordering Facility: [facility] Address: [address] [place], [place] [address]Performed By: #### 5643-2 #### [facility] CLIA [id number] [address] [place] [address] [place] OF AMERICAHIGH SENSITIVITY TROPONIN Ton 45-90-7702Etmhnmdc T.cardiac High sensitivity method [Mass/Vol]8 ng/LNormal<12 [facility] HospitalComforest [facility] on above:Order Comment: Specimen Type: BLOOD SPECIMEN Ordering Facility: [facility] Address: [address] [place], [place] [address]Performed By: #### HSTNT, 53794-9, 60890-1 #### [facility] CLIA [id number] [address] [place] [address] [place] AMERICAMagnesium SerPl-mCncon 08-18-2025 Magnesium [Mass/Vol]2.0 mg/dLNormal1.7-2.3[facility] HospitalComment on above: Order Comment: Specimen Type: BLOOD SPECIMEN Ordering Facility: [facility] Address: [address] [place], [place] [address]Performed By: #### HSTNT, 88475-7, 50474-7 #### [facility] CLIA [id number] [address] [place] [address] [place] AMERICAUrinalysis complete panel (U)on 50-54-0984Jglhbixrg Ql (U)NegativeNormalNegativeWallowa HospitalComment on above:Order Comment: Specimen Type: URINE SPECIMEN Ordering Facility: [facility] Address: [address] [place], [place] [address]Performed By: #### 39719-3 #### [facility] CLIA [id number] [address] [place] [address] [place] OF AMERICAClarity (Unsp spec)ClearNormalClear [facility] HospitalComment on above:Order Comment: Specimen Type: URINE SPECIMEN Ordering Facility: [facility] Address: [address] [place], [place] [address]Performed By: #### 56163-0 #### [facility] CLIA [id number] [address] [place] [address] [place] OF AMERICAColor (U)Light YellowNormalYellow [facility] HospitalComforest health medical center on above:Order Comment: Specimen Type: URINE SPECIMEN Ordering Facility: [facility] Address: [address] [place], [place] [address]Performed By: #### 09625-0 #### [facility] CLIA [id number] [address] [place] [address] [place] OF AMERICAGlucose Test strip (U) [Mass/Vol] NegativeNormalTrace, NegativeFaworcester city hospital HospitalComment on above:Order Comment: Specimen Type: URINE SPECIMEN Ordering Facility: [facility] Address: [address] [place], [place] [address]Performed By: #### 17753-3 #### [facility] CLIA [id number] [address] [place] [address] [place] OF AMERICAHemoglobin Ql (U)NegativeNormal Negative, TraceFairview HospitalComment on above:Order Comment: Specimen Type: URINE SPECIMEN Ordering Facility: [facility] Address: [address] [place], [place] [address]Performed By: #### 17416-9 #### [facility] CLIA [id number] [address] [place] [address] [place] AMERICAKetones Ql (U)NegativeNormal Negative, TraceFaworcester city hospital HospitalComment on above:Order Comment: Specimen Type: URINE SPECIMEN Ordering Facility: [facility] Address: [address] [place], [place] [address]Performed By: #### 12721-6 #### [facility] CLIA [id number] [address] [place] [address] [place] OF AMERICALeukocyte esterase Test strip Ql (U) NegativeNormalNegative, 25 Hedy/uLFaworcester city hospital HospitalComment on above:Order Comment: Specimen Type: URINE SPECIMEN Ordering Facility: [facility] Address: [address] [place], [place] [address]Performed By: #### 55239-3 #### [facility] CLIA [id number] [address] [place] [address] [place] AMERICANitrite Ql (U)NegativeNormalNegative [facility] HospitalComment on above:Order Comment: Specimen Type: URINE SPECIMEN Ordering Facility: [facility] Address: [address] [place], [place] [address]Performed By: #### 29874-5 #### [facility] CLIA [id number] [address] [place] [address] [place] AMERICApH (U)7.0 [pH]Normal5.0-8.0Wallowa HospitalComment on above:Order Comment: Specimen Type: URINE SPECIMEN Ordering Facility: [facility] Address: [address] [place], [place] [address]Performed By: #### 33623-0 #### [facility] CLIA [id number] [address] [place] [address] [place] AMERICAProtein (U) [Mass/Vol]NegativeNormal Trace, NegativeFaworcester city hospital HospitalComment on above:Order Comment: Specimen Type: URINE SPECIMEN Ordering Facility: [facility] Address: [address] [place], [place] [address]Performed By: #### 50372-3 #### [facility] CLIA [id number] [address] [place], [place] [address]RB LM.HPF (Urine sed) [#/Area]0-3 /HPFNormal0-3 /HPFFairmercy health perrysburg hospital HospitalComment on above:Order Comment: Specimen Type: URINE SPECIMEN Ordering Facility: [facility] Address: [address] [place], [place] [address]Performed By: #### 24491-6 #### [facility] CLIA [id number] [address] [place] [address] [place] [facility] HOSPITALSpecific gravity (U) [Rel density] 1.022Qetw5.005-1.030Faworcester city hospital HospitalComment on above:Order Comment: Specimen Type: URINE SPECIMEN Ordering Facility: [facility] Address: [address] [place], [place] [address]Performed By: #### 64025-5 #### [facility] CLIA [id number] [address] [place] [address] [place] [facility] SPECIALTY HOSPITALUrobilinogen Ql (U)NormalNormal NormalFaworcester city hospital HospitalComment on above:Order Comment: Specimen Type: URINE SPECIMEN Ordering Facility: [facility] Address: [address] [place], [place] [address]Performed By: #### 85321-0 #### [facility] CLIA [id number] [address] [place] [address] [place] [facility] HOSPITALW LM.HPF (Urine sed) [#/Area]0-5 /HPFNormal0-5 /HPFFairmercy health perrysburg hospital HospitalComment on above:Order Comment: Specimen Type: URINE SPECIMEN Ordering Facility: [facility] Address: [address] [place], [place] [address]Performed By: #### 80757-4 #### [facility] CLIA [id number] [address] [place], [place] [address]BNPon 63-40-7282Tenirkdhijr peptide B (Bld) [Mass/Vol]8.0 pg/mLNormal<=900.0The [facility] HospitalComment on above: Performed By: #### BNP, HSTROPN, BMP #### [facility] [address] [address] [address] Celeste Gleason AUTO DIFFon [id number] #0.1 103/ulNormal0.0-0.1The [facility] HospitalComment on above:Performed By: #### CBC #### [facility] [address] [place] [address] Dr. Celeste ArtBasophils/100 WBC (Bld)1.1 %Normal0.2-2.0The [facility] Comment on above:Performed By: #### CBC #### [facility] [address] [place] [address] Dr. Celeste Arce #0.8 103/ulCritically high0.0-0.7The [facility] HospitalComment on above:Performed By: #### CBC #### [facility] [address] [place] [address] Dr. Celeste Coronaosinophils/100 WBC (Bld)10.8 %Critically high0.9-7.0The [facility] on above:Performed By: #### CBC #### [facility] [address] [place] [address] Dr. Celeste Coronarythrocyte distribution width (RBC) [Ratio]12.4 %Hyvntq56.0-15.0 The [facility] Hospitalment on above:Performed By: #### CBC #### [facility] [address] [place] [address] Dr. Celeste ArtHematocrit (Bld) [Volume fraction]44.5 %Vldzxy90.0-54.0The [facility] Hospitalment on above:Performed By: #### CBC #### [facility] [address] [place] [address] Dr. Celeste ArtHemoglobin (Bld) [Mass/Vol]14.7 g/iCWsbysm15.0-18.0The [facility] Hospitalment on above:Performed By: #### CBC #### [facility] [address] [place] [address] Dr. Celeste Gillis #0.01 10e3/ulNormal0.00-0.03The [facility] HospitalComment on above:Performed By: #### CBC #### [facility] [address] [place] [address] Dr. Celeste Gillis %0.1 %Normal0.0-0.5The [facility] HospitalComforest health medical center on above: Performed By: #### CBC #### [facility] [address] [place] [address] Dr. Celeste Leger #3.4 103/ulNormal1.2-3.8The [facility] HospitalComforest health medical center on above:Performed By: #### CBC #### [facility] [address] [place] [address] Dr. Celeste Butthocytes/100 WBC (Bld)45.3 %Llxbgr72.5-60.0The [facility] on above:Performed By: #### CBC #### [facility] [address] [place] [address] Dr. Celeste LinaresUAL DIFF REQNONormalThe [facility] on above: Performed By: #### CBC #### [facility] [address] [place] [address] Dr. Celeste Fabian (RBC) [Entitic mass]30.6 joCcwzmn45.9-34.0The [facility] Hospitalment on above:Performed By: #### CBC #### [facility] [address] [place] [address] Dr. Celeste Fabian (RBC) [Mass/Vol]33.0 g/nDTponqp54.9-35.2The [facility] on above:Performed By: #### CBC #### [facility] [address] [place] [address] Dr. Celeste Fabian (RBC) [Entitic vol]92.7 eEHkpuzt43.0-94.0The [place] HospitalComment on above:Performed By: #### CBC #### [facility] [address] [address] [address] Celeste Spain #0.6 103/ulNormal0.3-0.8The [facility] HospitalComment on above:Performed By: #### CBC #### [facility] [address] [address] [address] Celeste Blountocytes/100 WBC (Bld)8.5 %Normal1.7-12.0The [facility] Comment on above:Performed By: #### CBC #### [facility] [address] [address] [address] Celeste Oseguera #2.5 103/ulNormal1.4-6.5The [facility] HospitalComment on above:Performed By: #### CBC #### [facility] [address] [address] [address] Celeste Robleroutrophils/100 WBC (Bld)34.2 %Critically low43.0-75.0The [facility] HospitalComment on above:Performed By: #### CBC #### [facility] [address] [place] [address] Dr. Celeste Vitallet mean volume (Bld) [Entitic vol]8.6 fLCritically low 9.5-13.5The [facility] HospitalComment on above:Performed By: #### CBC #### [facility] [address] [address] [address] Celeste ArtPLT274 103/zcGuojfs268-715Mfk [facility] HospitalComment on above: Performed By: #### CBC #### [facility] [address] [place] [address] Dr. Celeste ArtRBC4.80 106/ulNormal4.70-6.10The [facility] HospitalComment on above:Performed By: #### CBC #### [facility] [address] [place] [address] Dr. Celeste ArtWBC7.4 103/ulNormal4.0-11.0The [facility] HospitalComment on above: Performed By: #### CBC #### [facility] [address] [address] [address] Celeste ArtPROF CHEM 8 (BAS METB)on 16-91-2500Xubqx gap [Moles/Vol]11.8 mmol/LNormalThe [facility] HospitalComment on above:Performed By: #### BNP, HSTROPN, BMP #### [facility] [address] [address] [address] Celeste ArtCalcium [Mass/Vol]8.4 mg/dLCritically low8.5-10.1The [facility] Hospitalment on above:Performed By: #### BNP, HSTROPN, BMP #### [facility] [address] [address] [address] Celeste ArtChloride [Moles/Vol]107 mmol/GTfonbn73-425Sjv [facility] Comment on above:Performed By: #### BNP, HSTROPN, BMP #### [facility] [address] [place] [address] Dr. Celeste ArtCO2 [Moles/Vol]27.7 mmol/GLagfvg22.0-32.0The [facility] Comment on above:Performed By: #### BNP, HSTROPN, BMP #### [facility] [address] [place] [address] Dr. Celeste ArtCreatinine [Mass/Vol]0.99 mg/dLNormal0.70-1.30The [facility] HospitalComment on above:Performed By: #### BNP, HSTROPN, BMP #### [facility] [address] [place] [address] Dr. Alonso ChangEGFR-AF FAROESE>60Normal>=60The [facility] HospitalComment on above:Performed By: #### BNP, HSTROPN, BMP #### [facility] [address] [place] [address] Dr. Celeste CoronaGFR-NON AF FAROESE>60Normal>=60The [facility] HospitalComment on above:Performed By: #### BNP, HSTROPN, BMP #### [facility] [address] [address] [address] Celeste ArtGlucose [Mass/Vol]104 mg/mXXjnpyb51-451Cru [facility] Comment on above:Performed By: #### BNP, HSTROPN, BMP #### [facility] [address] [address] [address] Celeste ArtPotassium [Moles/Vol]3.5 mmol/LNormal3.5-5.1The [facility] Comment on above:Performed By: #### BNP, HSTROPN, BMP #### [facility] [address] [place] [address] Dr. Celeste ArtSodium [Moles/Vol]143 mmol/OBgyuow197-051Txg [facility] Comment on above:Performed By: #### BNP, HSTROPN, BMP #### [facility] [address] [place] [address] Dr. Celeste ArtUrea nitrogen [Mass/Vol]14.0 mg/dLNormal7.0-18.0The [facility] HospitalComment on above:Performed By: #### BNP, HSTROPN, BMP #### [facility] [address] [place] [address] Dr. Celeste Baltazar nitrogen/Creatinine [Mass ratio]14.1 mg/mgNormalThe [facility] HospitalComment on above:Performed By: #### BNP, HSTROPN, BMP #### [facility] [address] [place] [address] Dr. Celeste Baig, HIGH SENSITIVITYon 57-66-1868OWOCBW3.1 pg/mLNormal 4.0-76.1[facility] CenterComment on above:Result Comment: CUT-OFF POINTS HAVE BEEN ESTABLISHED BASED ON THE FOURTH UNIVERSAL DEFINITIONS OF MYOCARDIAL INFARCTION. THE UPPER REFERENCE LIMIT (URL) OF TROPONIN, DEFINED THE 99TH PERCENTILE OF cTnI DISTRIBUTION IN A REFERENCE POPULATION, HAS BEEN CONFIRMED THE DECISION THRESHOLD FOR AR DIAGNOSIS.Performed By: #### BNP, HSTROPN, BMP #### [facility] [address] [place] [address] Dr. Celeste ArtXR CHEST 2 Von [id number] CHEST 2 VEXAM: XR CHEST 2 V HISTORY: COUGH COMPARISON: None. TECHNIQUE: PA and lateral views of the chest FINDINGS: There is no focal airspace consolidation or infiltrate. The cardiomediastinal silhouette is not enlarged. No evidence of pleural effusion or pneumothorax are identified. No acute osseous abnormality. IMPRESSION: No acute cardiopulmonary process. Electronically authenticated by: EDMUNDO UNLU Date: 2023-03-01 22:45NoUniversity [facility] AUTO DIFFon [id number] #0.1 103/ulNormal0.0-0.1[facility] CenterComment on above:Performed By: #### CBC #### [facility] [address] [place] [address] Dr. Celeste ArtBasophils/100 WBC (Bld)1.2 %Normal0.2-2.0[facility] Comment on above:Performed By: #### CBC #### [facility] [address] [address] [address] Celeste Arce #1.0 103/ulCritically high0.0-0.7The [facility] HospitalComment on above:Performed By: #### CBC #### [facility] [address] [address] [address] Celeste Coronaosinophils/100 WBC (Bld)13.1 %Critically high0.9-7.0The [facility] HospitalComment on above:Performed By: #### CBC #### [facility] [address] [address] [address] Celeste Coronarythrocyte distribution width (RBC) [Ratio]12.7 %Aelure32.0-15.0 The [facility] HospitalComment on above:Performed By: #### CBC #### [facility] [address] [place] [address] Dr. Celeste ArtHematocrit (Bld) [Volume fraction]40.9 %Critically low42.0-54.0 [facility] CenterComment on above:Performed By: #### CBC #### [facility] [address] [address] [address] Celeste ArtHemoglobin (Bld) [Mass/Vol]14.4 g/oOUdhsyp23.0-18.0The [facility] on above:Performed By: #### CBC #### [facility] [address] [place] [address] Dr. Celeste Gillis #0.01 10e3/ulNormal0.00-0.03The [facility] HospitalComment on above:Performed By: #### CBC #### [facility] [address] [place] [address] Dr. Celeste Gillis %0.1 %Normal0.0-0.5The [facility] HospitalComforest health medical center on above: Performed By: #### CBC #### [facility] [address] [place] [address] Dr. Celeste Leger #2.8 103/ulNormal1.2-3.8The [facility] HospitalComment on above:Performed By: #### CBC #### [facility] [address] [place] [address] Dr. Celeste Butthocytes/100 WBC (Bld)36.4 %Bdfexz50.5-60.0The [facility] on above:Performed By: #### CBC #### [facility] [address] [place] [address] Dr. Celeste LinaresUAL DIFF REQNONormalThe [facility] HospitalComment on above: Performed By: #### CBC #### [facility] [address] [place] [address] Dr. Celeste Fabian (RBC) [Entitic mass]30.4 rpCbonte94.9-34.0The [facility] HospitalComforest [facility] medical center on above:Performed By: #### CBC #### [facility] [address] [place] [address] Dr. Celeste Fabian (RBC) [Mass/Vol]35.2 g/wDTjawld60.9-35.2The [facility] HospitalComment on above:Performed By: #### CBC #### [facility] [address] [address] [address] Celeste FabianV (RBC) [Entitic vol]86.5 cGQvedqg25.0-94.0The [facility] Hospitalment on above:Performed By: #### CBC #### [facility] [address] [place] [address] Dr. Celeste Spain #0.8 103/ulNormal0.3-0.8The [facility] HospitalComment on above:Performed By: #### CBC #### [facility] [address] [place] [address] Dr. Celeste Blountocytes/100 WBC (Bld)10.1 %Normal1.7-12.0[facility] Comment on above:Performed By: #### CBC #### [facility] [address] [place] [address] Dr. Celeste Oseguera #3.0 103/ulNormal1.4-6.5The [facility] HospitalComment on above:Performed By: #### CBC #### [facility] [address] [place] [address] Dr. Celeste Robleroutrophils/100 WBC (Bld)39.1 %Critically low43.0-75.0The [facility] HospitalComment on above:Performed By: #### CBC #### [facility] [address] [place] [address] Dr. Celeste Vitallet mean volume (Bld) [Entitic vol]8.5 fLCritically low 9.5-13.5The [facility] Hospitalment on above:Performed By: #### CBC #### [facility] [address] [place] [address] Dr. Celeste ArtPLT296 103/msBobbls624-124Hdg [facility] HospitalComment on above: Performed By: #### CBC #### [facility] [address] [place] [address] Dr. Celeste ArtRBC4.73 106/ulNormal4.70-6.10The [facility] HospitalComment on above:Performed By: #### CBC #### [facility] [address] [place] [address] Dr. Celeste ArtWBC7.7 103/ulNormal4.0-11.0The [facility] HospitalComment on above: Performed By: #### CBC #### [facility] [address] [place] [address] Dr. Celeste ArtCovid-19 PCR ([facility])on [id number]-CoV-2 (COVID-19) RNA KONSTANTIN+probe Ql (Unsp spec)Not detectedNormalNOT DETECTEDThe [facility] Comment on above:Result Comment: When diagnostic testing is negative, the [...] for this test is supported by the [place] of Health and Human Service's declaration that circumstances exist to justify the emergency use of in vitro diagnostics for the detection and/or diagnosis of the virus that causes COVID-19. This EUA will remain in effect for the duration of the COVID-19 declaration justifying emergency of IVDs, unless it is terminated or revoked by the FDA (after which the test may no longer be used).Performed By: #### CXSPTUM #### [facility] [address] [place] [address] Dr. Celeste ArtINFLADOLPHZA A AND B AGon [id number] A AGNegativeNormal NEGATIVE SEE COMMENTThe [facility] HospitalComment on above:Performed By: #### CBC #### [facility] [address] [place] [address] Dr. Celeste ArtINFLSTEPHANIE B AGNegativeNormalNEGATIVE SEE COMMENTThe [facility] HospitalComment on above:Performed By: #### CBC #### [facility] [address] [place] [address] Dr. Celeste Foster/LACTIC ACIDon [id number] [Moles/Vol]1.1 mmol/L Normal0.4-1.9The [facility] HospitalComment on above:Performed By: #### CXSPTUM #### [facility] [address] [address] [address] Celeste ArtPROF CHEM 8 (BAS METB)on [id number] gap [Moles/Vol]11.9 mmol/LNormalThe [facility] HospitalComment on above:Performed By: #### CXSPTUM #### [facility] [address] [address] [address] Celeste ArtCalcium [Mass/Vol]8.7 mg/dLNormal8.5-10.1[facility] Comment on above:Performed By: #### CXSPTUM #### [facility] [address] [place] [address] Dr. Celeste ArtChloride [Moles/Vol]107 mmol/BGkyqzx32-509Nns [facility] Comment on above:Performed By: #### CXSPTUM #### [facility] [address] [address] [address] Celeste ArtCO2 [Moles/Vol]25.9 mmol/TIaxnzp62.0-32.0[facility] Comment on above:Performed By: #### CXSPTUM #### [facility] [address] [address] [address] Celeste ArtCreatinine [Mass/Vol]0.85 mg/dLNormal0.70-1.30The [facility] HospitalComment on above:Performed By: #### CXSPTUM #### [facility] [address] [place] [address] Dr. Celeste CoronaGFR-AF FAROESE>60Normal>=60The [facility] HospitalComment on above:Performed By: #### CXSPTUM #### [facility] [address] [address] [address] Celeste CoronaGFR-NON AF FAROESE>60Normal>=60The [facility] HospitalComment on above:Performed By: #### CXSPTUM #### [facility] [address] [address] [address] Celeste ArtGlucose [Mass/Vol]88 mg/wBDrbgmr73-476IbwMercy Health [facility] Comment on above:Performed By: #### CXSPTUM #### [facility] [address] [place] [address] Dr. Celeste ArtPotassium [Moles/Vol]3.8 mmol/LNormal3.5-5.1[facility] Comment on above:Performed By: #### CXSPTUM #### [facility] [address] [place] [address] Dr. Celeste ArtSodium [Moles/Vol]141 mmol/LIsfqdr228-593WpnMercy Health [facility] Regional [facility] Center Comment on above:Performed By: #### CXSPTUM #### [facility] [address] [place] [address] Dr. Celeste ArtUrea nitrogen [Mass/Vol]14.0 mg/dLNormal7.0-18.0[facility] CenterComment on above:Performed By: #### CXSPTUM #### [facility] [address] [place] [address] Dr. Celeste Baltazar nitrogen/Creatinine [Mass ratio]16.5 mg/mgNormalThe [facility] HospitalComment on above:Performed By: #### CXSPTUM #### [facility] [address] [place] [address] Dr. Celeste Fragoso [id number] AGNegativeNormalNEGATIVEMercy Health [facility] Center Comment on above:Performed By: #### CBC #### [facility] [address] [place] [address] Dr. Celeste ArtXR CHEST 2 Von [id number] CHEST 2 VEXAMINATION: XR CHEST 2 V HISTORY: Cough COMPARISON: Chest x-ray 04/03/2022 are not available for interpretation TECHNIQUE: Portable chest FINDINGS: The lung parenchyma is free of consolidation or infiltrate. No pneumothorax or pleural effusion. The cardiac, mediastinal and hilar contours are normal. The visualized osseous structures exhibit no gross abnormality. IMPRESSION: No acute cardiopulmonary abnormality. Electronically authenticated by: QUOC MALDONADO Date: 2022-11-11 21:51[facility] [place] [facility] CONon [id number] [facility] WO CONEXAMINATION: MRI [facility] WO CON HISTORY: Low back pain COMPARISON: [...] Electronically authenticated by: QUOC OWENS Date: 2022-04-14 20:46[facility] CULTUREon [id number] cells LM Ql (Urine sed) FewHolmes County Joel Pomerene Memorial HospitalComment on above:Performed By: #### CXSPTUM #### [facility] [address] [place] [address] Dr. Celeste ArtGram Stain EvaluationCommentNoSalem City HospitalComment on above:Result Comment: This specimen is of good quality and is acceptable for routine bacterial culture.Performed By: #### CXSPTUM #### [facility] [address] [place] [address] Dr. Celeste Neri Respiratory CultureFinal [facility] Comment on above:Performed By: #### CXSPTUM #### [facility] [address] [place] [address] Dr. Celeste Alvarez 1CCoshocton Regional Medical CenterComment on above:Result Comment: Few gram positive cocciPerformed By: #### CXSPTUM #### [facility] [address] [place] [address] Dr. Celeste Alvarez Comment: Routine respiratory floraResult 2CCoshocton Regional Medical CenterComment on above:Result Comment: Few gram variable cocci Performed By: #### CXSPTUM #### [facility] [address] [place] [address] Dr. Celeste Alvarez 3CCoshocton Regional Medical CenterComment on above:Result Comment: Few gram negative rods.Performed By: #### CXSPTUM #### [facility] [address] [place] [address] Dr. Celeste Alvarez 4[facility] HospitalComment on above:Performed By: #### CXSPTUM #### [facility] [address] [place] [address] Dr. Celeste Diaz Blood CellsFewHolmes County Joel [facility]omerene Memorial HospitalComment on above: Performed By: #### CXSPTUM #### [facility] [address] [place] [address] Dr. Celeste Gleason AUTO DIFFon [id number] #0.0 103/ulNormal0.0-0.1The [facility] HospitalComment on above:Performed By: #### CXSPTUM #### [facility] [address] [place] [address] Dr. Celeste ArtBasophils/100 WBC (Bld)0.1 %Critically low0.2-2.0The [facility] HospitalComment on above:Performed By: #### CXSPTUM #### [facility] [address] [place] [address] Dr. Celeste Arce #0.0 103/ulNormal0.0-0.7The [facility] HospitalComment on above: Performed By: #### CXSPTUM #### [facility] [address] [place] [address] Dr. Celeste Coronaosinophils/100 WBC (Bld)0.0 %Critically low0.9-7.0The [facility] HospitalComment on above:Performed By: #### CXSPTUM #### [facility] [address] [place] [address] Dr. Celeste Coronarythrocyte distribution width (RBC) [Ratio]12.4 %Iyjncn72.0-15.0 The [facility] HospitalComment on above:Performed By: #### CXSPTUM #### [facility] [address] [place] [address] Dr. Celeste ArtHematocrit (Bld) [Volume fraction]44.2 %Yhzjxs59.0-54.0The [facility] HospitalComment on above:Performed By: #### CXSPTUM #### [facility] [address] [place] [address] Dr. Celeste ArtHemoglobin (Bld) [Mass/Vol]14.6 g/xZXubvzd30.0-18.0The [facility] HospitalComment on above:Performed By: #### CXSPTUM #### [facility] [address] [place] [address] Dr. Celeste Gillis #0.19 10e3/ulCritically high0.00-0.03The [facility] Comment on above:Performed By: #### CXSPTUM #### [facility] [address] [place] [address] Dr. Celeste Gillis %1.0 %Critically high0.0-0.5The [facility] HospitalComment on above:Performed By: #### CXSPTUM #### [facility] [address] [address] [address] Celeste Leger #0.8 103/ulCritically low1.2-3.8The [facility] Comment on above:Performed By: #### CXSPTUM #### [facility] [address] [place] [address] Dr. Celeste Reesemphocytes/100 WBC (Bld)3.9 %Critically low20.5-60.0The [facility] HospitalComment on above:Performed By: #### CXSPTUM #### [facility] [address] [place] [address] Dr. Celeste Matson DIFF REQNONormalThe [facility] HospitalComment on above: Performed By: #### CXSPTUM #### [facility] [address] [place] [address] Dr. Celeste Fabian (RBC) [Entitic mass]30.7 leYbrtge50.9-34.0The [place] HospitalComment on above:Performed By: #### CXSPTUM #### [facility] [address] [place] [address] Dr. Celeste Fabian (RBC) [Mass/Vol]33.0 g/sRFwbchq87.9-35.2The [facility] HospitalComment on above:Performed By: #### CXSPTUM #### [facility] [address] [place] [address] Dr. Celeste Fabian (RBC) [Entitic vol]92.9 yGLrntjp96.0-94.0The [facility] HospitalComment on above:Performed By: #### CXSPTUM #### [facility] [address] [place] [address] Dr. Celeste Spain #0.5 103/ulNormal0.3-0.8The [facility] HospitalComment on above:Performed By: #### CXSPTUM #### [facility] [address] [place] [address] Dr. Celeste Blountocytes/100 WBC (Bld)2.4 %Normal1.7-12.0The [facility] Comment on above:Performed By: #### CXSPTUM #### [facility] [address] [place] [address] Dr. Celeste Oseguera #18.3 103/ulCritically high1.4-6.5The [facility] Comment on above:Performed By: #### CXSPTUM #### [facility] [address] [place] [address] Dr. Celeste Robleroutrophils/100 WBC (Bld)92.6 %Critically high43.0-75.0The [facility] HospitalComment on above:Performed By: #### CXSPTUM #### [facility] [address] [place] [address] Dr. Celeste Wang mean volume (Bld) [Entitic vol]9.0 fLCritically low 9.5-13.5The [facility] HospitalComment on above:Performed By: #### CXSPTUM #### [facility] [address] [place] [address] Dr. Celeste ArtPLT368 103/tkPoljux433-091Gaa [facility] HospitalComment on above: Performed By: #### CXSPTUM #### [facility] [address] [place] [address] Dr. Celeste ArtRBC4.76 106/ulNormal4.70-6.10The [facility] HospitalComment on above:Performed By: #### CXSPTUM #### [facility] [address] [place] [address] Dr. Celeste ArtWBC19.7 103/ulCritically high4.0-11.0The [facility] HospitalComment on above:Performed By: #### CXSPTUM #### [facility] [address] [place] [address] Dr. Celeste Watt 14(COMP METB)on [id number] [Mass/Vol]3.3 g/dL Critically low3.4-5.0The [facility] HospitalComment on above:Performed By: #### CXSPTUM #### [facility] [address] [address] [address] Celeste ArtAlbumin/Globulin [Mass ratio]1.1 {ratio}NormalThe [facility] HospitalComment on above:Performed By: #### CXSPTUM #### [facility] [address] [address] [address] Celeste LopezP [Catalytic activity/Vol]71 U/TRbhgrd94-768Ndi [facility] HospitalComment on above:Performed By: #### CXSPTUM #### [facility] [address] [address] [address] Celeste LopezT [Catalytic activity/Vol]41 U/MWuxngh88-46Pft [facility] HospitalComment on above:Performed By: #### CXSPTUM #### [facility] [address] [place] [address] Dr. Celeste Dubonon gap [Moles/Vol]13.7 mmol/LNormalThe [facility] Comment on above:Performed By: #### CXSPTUM #### [facility] [address] [address] [address] Celeste ArtAST [Catalytic activity/Vol]14 U/LCritically nvb42-07Knt [facility] HospitalComment on above:Performed By: #### CXSPTUM #### [facility] [address] [address] [address] Celeste ArtBilirubin [Mass/Vol]0.2 mg/dLNormal0.2-1.0The [facility] Comment on above:Performed By: #### CXSPTUM #### [facility] [address] [address] [address] Celeste ArtCalcium [Mass/Vol]8.8 mg/dLNormal8.5-10.1The [facility] Comment on above:Performed By: #### CXSPTUM #### [facility] [address] [address] [address] Celeste ArtChloride [Moles/Vol]107 mmol/EUttkie45-139Ero [facility] Comment on above:Performed By: #### CXSPTUM #### [facility] [address] [address] [address] Celeste ArtCO2 [Moles/Vol]23.8 mmol/KRtgala95.0-32.0The [facility] Comment on above:Performed By: #### CXSPTUM #### [facility] [address] [address] [address] Celeste ArtCreatinine [Mass/Vol]0.99 mg/dLNormal0.70-1.30The [facility] HospitalComment on above:Performed By: #### CXSPTUM #### [facility] [address] [address] [address] Alonso ChangEGFR-AF FAROESE>60Normal>=60The [facility] HospitalComment on above:Performed By: #### CXSPTUM #### [facility] [address] [address] [address] Celeste CoronaGFR-NON AF FAROESE>60Normal>=60The [facility] HospitalComment on above:Performed By: #### CXSPTUM #### [facility] [address] [address] [address] Celeste ArtGlobulin (S) [Mass/Vol]3.1 g/dLNormalThe [facility] HospitalComment on above:Performed By: #### CXSPTUM #### [facility] [address] [address] [address] Celeste ArtGlucose [Mass/Vol]146 mg/dLCritically qelh89-416Lmn [facility] HospitalComment on above:Performed By: #### CXSPTUM #### [facility] [address] [address] [address] Celeste ArtPotassium [Moles/Vol]4.5 mmol/LNormal3.5-5.1The [facility] Comment on above:Performed By: #### CXSPTUM #### [facility] [address] [address] [address] Celeste ArtProtein [Mass/Vol]6.4 g/dLNormal6.4-8.2[facility] Comment on above:Performed By: #### CXSPTUM #### [facility] [address] [place] [address] Dr. Celeste Parrishum [Moles/Vol]140 mmol/KTxcahu700-129Pif [facility] Comment on above:Performed By: #### CXSPTUM #### [facility] [address] [place] [address] Dr. Celeste Baltazar nitrogen [Mass/Vol]22.0 mg/dLCritically high7.0-18.0The [facility] HospitalComment on above:Performed By: #### CXSPTUM #### [facility] [address] [place] [address] Dr. Celeste Baltazar nitrogen/Creatinine [Mass ratio]22.2 mg/mgNormalThe [facility] HospitalComment on above:Performed By: #### CXSPTSU #### [facility] [address] [place] [address] Dr. Celeste Gleason W MANUAL DIFFon [id number] LYMPH #NormalMercy Health Springfield Regional Medical CenterComment on above:Performed By: #### KIMBERLY #### [facility] [address] [place] [address] Dr. Celeste ArtATYPICAL LYMPH %NormalThe [facility] HospitalComment on above: Performed By: #### KIMBERLY #### [facility] [address] [place] [address] Dr. Celeste Winkler #Normal0.0-0.3The [facility] HospitalComment on above: Performed By: #### KIMBERLY #### [facility] [address] [place] [address] Dr. Celeste Winkler %Normal0-5The [facility] HospitalComment on above:Performed By: #### KIMBERLY #### [facility] [address] [place] [address] Dr. Celeste Almazan #0.00 103/ulNormal0.00-0.10The [facility] HospitalComment on above:Performed By: #### KIMBERLY #### [facility] [address] [address] [address] Celeste Almazan %0.0 %Critically low0.2-2.0The [facility] HospitalComment on above:Performed By: #### CBCSHAZIA #### [facility] [address] [address] [address] Celeste Anderson #NormalThe [place] HospitalComment on above:Performed By: #### CBCSHAZIA #### [facility] [address] [address] [address] Celeste Anderson %NormalThe [facility] HospitalComment on above:Performed By: #### KIMBERLY #### [facility] [address] [place] [address] Dr. Celeste ArtCORRECTED WBCNormal4.0-11.0The [facility] HospitalComment on above: Performed By: #### KIMBERLY #### [facility] [address] [place] [address] Dr. Celeste Bhatt #0.00 103/ulNormal0.00-0.70The [facility] HospitalComment on above:Performed By: #### KIMBERLY #### [facility] [address] [place] [address] Dr. Celeste Bhatt%0.0 %Critically low0.9-7.0The [facility] HospitalComment on above:Performed By: #### KIMBERLY #### [facility] [address] [place] [address] Dr. Celeste ArtHCT45.8 %Orpkrs46.0-54.0The [facility] HospitalComment on above: Performed By: #### KIMBERLY #### [facility] [address] [place] [address] Dr. Celeste ArtHGB15.4 g/elRymbwi64.0-18.0The [facility] HospitalComment on above: Performed By: #### CBCSHAZIA #### [facility] [address] [place] [address] Dr. Celeste Everett #0.48 103/ulCritically low1.20-3.80The [facility] Comment on above:Performed By: #### KIMBERLY #### [facility] [address] [address] [address] Celeste Everett%6.0 %Critically low20.5-60.0The [facility] HospitalComment on above:Performed By: #### KIMBERLY #### [facility] [address] [address] [address] Celeste FabianH30.5 jqSybbtx93.9-34.0The [facility] HospitalComment on above: Performed By: #### KIMBERLY #### [facility] [address] [address] [address] Celeste FabianHC33.6 g/zsXbqotu84.9-35.2The [facility] HospitalComment on above:Performed By: #### KIMBERLY #### [facility] [address] [place] [address] Dr. Celeste FabianV90.7 gNYxflca96.0-94.0The [place] HospitalComment on above: Performed By: #### KIMBERLY #### [facility] [address] [place] [address] Dr. Celeste MattsonOCYTE #NormalThe [facility] HospitalComment on above: Performed By: #### KIMBERLY #### [facility] [address] [place] [address] Dr. Celeste MattsonOCYTE %NormalThe [facility] HospitalComment on above: Performed By: #### KIMBERLY #### [facility] [address] [place] [address] Dr. Celeste Dawson#0.08 103/ulCritically low0.30-0.80The [facility] Comment on above:Performed By: #### KIMBERLY #### [facility] [address] [place] [address] Dr. Celeste Dawson%1.0 %Critically low1.7-12.0The [facility] HospitalComment on above:Performed By: #### KIMBERLY #### [facility] [address] [place] [address] Dr. Celeste WeeksV8.9 fLCritically low9.5-13.5The [facility] HospitalComment on above:Performed By: #### KIMBERLY #### [facility] [address] [address] [address] Celeste DuarteOCYTE #NormalMercy Health Springfield Regional Medical CenterComment on above:Performed By: #### KIMBERLY #### [facility] [address] [address] [address] Celeste DuarteOCYTE %NormalThe [place] HospitalComment on above:Performed By: #### KIMBERLY #### [facility] [address] [place] [address] Dr. Celeste RobertsonBCNormalThProMedica Memorial HospitalComment on above:Performed By: #### KIMBERLY #### [facility] [address] [place] [address] Dr. Celeste HagerT379 103/rbWwktdq230-604Nfg [facility] HospitalComment on above: Performed By: #### KIMBERLY #### [facility] [address] [place] [address] Dr. Celeste ArtRBC5.05 106/ulNormal4.70-6.10The [facility] HospitalComment on above:Performed By: #### KIMBERLY #### [facility] [address] [place] [address] Dr. Celeste ArtRDW12.0 %Ddlodb27.0-15.0The [facility] HospitalComment on above: Performed By: #### KIMBERLY #### [facility] [address] [place] [address] Dr. Celeste Flores #7.44 103/ulCritically high1.40-6.50The [facility] on above:Performed By: #### KIMBERLY #### [facility] [address] [place] [address] Dr. Celeste Flores %93.0 %Critically high43.0-75.0The [facility] HospitalComment on above:Performed By: #### KIMBERLY #### [facility] [address] [place] [address] Dr. Celeste ArtWBC8.0 103/ulNormal4.0-11.0The [facility] HospitalComment on above: Performed By: #### CBCMAN #### [facility] [address] [address] [address] Celeste Knox 75-67-0891MCC [Mass/Vol]mg/LNormal<=1.0The [facility] HospitalComment on above:Performed By: #### CMP, CRP #### [facility] [address] [address] [address] Celeste ArtCT LSPINE WO CONon 62-55-9700RW LSPINE WO CONEXAM: CT LSPINE WO CON HISTORY: Pain COMPARISON: Abdomen and pelvic CT 09/14/2021 TECHNIQUE: Axial CT imaging is performed through the lumbar spine. Sagittal and coronal reformatted/reconstructed sequences were additionally performed. FINDINGS: Maintenance of [...] and subarticular recess. Electronically authenticated by: QUOC MADLONADO Date: 2022-04-03 22:54[facility] HospitalCovid-19 PCR (CVDTBH)on 03-64-1901JYEL-CoV-2 (COVID-19) RNA KONSTANTIN+probe Ql (Unsp spec)Not detectedNormalNOT DETECTEDThe [facility] Comment on above:Result Comment: When diagnostic testing is negative, the [...] for this test is supported by the Analytical Research Program Manager of Health and Human Service's declaration that circumstances exist to justify the emergency use of in vitro diagnostics for the detection and/or diagnosis of the virus that causes COVID-19. This EUA will remain in effect for the duration of the COVID-19 declaration justifying emergency of IVDs, unless it is terminated or revoked by the FDA (after which the test may no longer be used).Performed By: #### CVDTBH #### [facility] [address] [place] [address] Dr. Celeste Valencia URINE PROFILEon 77-21-3928Oneqeeetn Ql (U)NegativeNormal NEGATIVEMercy Health Springfield Regional Medical CenterComment on above:Performed By: #### CXSPTUM #### [facility] [address] [place] [address] Dr. Celeste ArtClarity (U)CLEARNormalCLEARMercy Health Springfield Regional Medical CenterComment on above: Performed By: #### CXSPTUM #### [facility] [address] [place] [address] Dr. Celeste Love (U)LT. YELLOWNormalYELLOWMercy Health Springfield Regional Medical CenterComment on above:Performed By: #### CXSPTUM #### [facility] [address] [place] [address] Dr. Celeste Duvall micrscopic examination will be performed if indicated. NormalMercy Health Springfield Regional Medical CenterComment on above:Performed By: #### CXSPTUM #### [facility] [address] [place] [address] Dr. Celeste ArtGlucose Ql (U)NegativeNormalNEGATIVEMercy Health Springfield Regional Medical CenterComment on above:Performed By: #### CXSPTUM #### [facility] [address] [place] [address] Dr. Celeste ArtHemoglobin Ql (U)NegativeNormalNEGATIVEMercy Health [facility] Comment on above:Performed By: #### CXSPTUM #### [facility] [address] [place] [address] Dr. Celeste Barillas Ql (U)NegativeNormalNEGATIVEThe [facility] HospitalComment on above:Performed By: #### CXSPTUM #### [facility] [address] [place] [address] Dr. Celeste ArtLEUKOCYTESNegativeNormalNEGATIVEThe [facility] HospitalComment on above:Performed By: #### CXSPTUM #### [facility] [address] [address] [address] Celeste Mckeon Ql (U)NegativeNormalNEGATIVEThe [place] HospitalComment on above:Performed By: #### CXSPTUM #### [facility] [address] [address] [address] Celeste ArtpH (U)6.0 [pH]Normal5-9The [facility] HospitalComment on above: Performed By: #### CXSPTUM #### [facility] [address] [place] [address] Dr. Celeste ArtSPEC GRAVITY1.130Uklbwd0.005-<=1.025The [facility] HospitalComment on above:Performed By: #### CXSPTUM #### [facility] [address] [place] [address] Dr. Celeste Crenshaw PROTEINNegativeNormalNEGATIVE/ TRACEThe [facility] on above:Performed By: #### CXSPTUM #### [facility] [address] [place] [address] Dr. Celeste Allan MICRO INDNOT INDICATEDNormalThe [facility] HospitalComment on above:Performed By: #### CXSPTUM #### [facility] [address] [place] [address] Dr. Celeste ArtUrobilinogen Qn (U)0.2 {Maycol'U}/dLNormal0.2 - 1.0The [facility] HospitalComment on above:Performed By: #### CXSPTUM #### [facility] [address] [place] [address] Dr. Celeste MaynardF 14(COMP METB)on 44-58-0289Xlgfkqd [Mass/Vol]3.7 g/dLNormal 3.4-5.0The [facility] HospitalComment on above:Performed By: #### CMP, CRP #### [facility] [address] [place] [address] Dr. Celeste ArtAlbumin/Globulin [Mass ratio]1.1 {ratio}NormalThe [facility] HospitalComment on above:Performed By: #### CMP, CRP #### [facility] [address] [address] [address] Celeste LopezP [Catalytic activity/Vol]76 U/HIbgkng63-679Ycz [facility] HospitalComment on above:Performed By: #### CMP, CRP #### [facility] [address] [place] [address] Dr. Celeste Lees [Catalytic activity/Vol]53 U/EMbmkxc12-19Czf [facility] HospitalComment on above:Performed By: #### CMP, CRP #### [facility] [address] [place] [address] Dr. Celeste Castle gap [Moles/Vol]18.9 mmol/LNormalThe [facility] Comment on above:Performed By: #### CMP, CRP #### [facility] [address] [place] [address] Dr. Celeste Burns [Catalytic activity/Vol]20 U/ZVugrdr30-14Zgf [facility] HospitalComment on above:Performed By: #### CMP, CRP #### [facility] [address] [place] [address] Dr. Celeste ArtBilirubin [Mass/Vol]0.3 mg/dLNormal0.2-1.0The [facility] Comment on above:Performed By: #### CMP, CRP #### [facility] [address] [place] [address] Dr. Celeste ArtCalcium [Mass/Vol]9.1 mg/dLNormal8.5-10.1The [facility] Comment on above:Performed By: #### CMP, CRP #### [facility] [address] [place] [address] Dr. Celeste ArtChloride [Moles/Vol]107 mmol/HJkwayu48-323Ifx [facility] Comment on above:Performed By: #### CMP, CRP #### [facility] [address] [place] [address] Dr. Celeste ArtCO2 [Moles/Vol]22.1 mmol/BWpytog96.0-32.0The [facility] Comment on above:Performed By: #### CMP, CRP #### [facility] [address] [place] [address] Dr. Celeste ArtCreatinine [Mass/Vol]0.93 mg/dLNormal0.70-1.30The [facility] HospitalComment on above:Performed By: #### CMP, CRP #### [facility] [address] [place] [address] Dr. Celeste CoronaGFR-AF FAROESE>60Normal>=60The [facility] HospitalComment on above:Performed By: #### CMP, CRP #### [facility] [address] [place] [address] Dr. Celeste CoronaGFR-NON AF FAROESE>60Normal>=60The [facility] HospitalComment on above:Performed By: #### CMP, CRP #### [facility] [address] [place] [address] Dr. Celeste ArtGlobulin (S) [Mass/Vol]3.4 g/dLNormalThe [facility] HospitalComment on above:Performed By: #### CMP, CRP #### [facility] [address] [place] [address] Dr. Celeste ArtGlucose [Mass/Vol]161 mg/dLCritically ivqn08-309Vxo [facility] HospitalComment on above:Performed By: #### CMP, CRP #### [facility] [address] [place] [address] Dr. Celeste ArtPotassium [Moles/Vol]4.0 mmol/LNormal3.5-5.1The [facility] Comment on above:Performed By: #### CMP, CRP #### [facility] [address] [place] [address] Dr. Celeste ArtProtein [Mass/Vol]7.1 g/dLNormal6.4-8.2The [facility] Comment on above:Performed By: #### CMP, CRP #### [facility] [address] [address] [address] Celeste Parrishum [Moles/Vol]144 mmol/POpxmnm276-753Liq [facility] Comment on above:Performed By: #### CMP, CRP #### [facility] [address] [address] [address] Celeste ArtUrea nitrogen [Mass/Vol]17.0 mg/dLNormal7.0-18.0The [facility] HospitalComment on above:Performed By: #### CMP, CRP #### [facility] [address] [address] [address] Celeste Baltazar nitrogen/Creatinine [Mass ratio]18.3 mg/mgNormalThe [facility] HospitalComment on above:Performed By: #### CMP, CRP #### [facility] [address] [address] [address] Celeste Fine 09-14-6198Krtzxkp [id number]#1.00CD:[address] [place], [place] [address]Registrationon 27-55-5433Bjflofaypubz [id number]#1.00CD:[address] [place], [place] [address]Physician Referralon 68-01-4725Dgjjdyehs Referral [id number]#1.00CD:[address] [place] [address] Encounters Encounter DateEncounter TypeCare ProviderFacilityStart: 08-18-2025 End: 05-45-5542Vbvkpjiqr department patient visitDOCAITY CARLOSFacility:[facility]: 03-01-2023 End: 50-91-9780stzppjdadtVR ROSCOE MARKER .Facility:K4Ayxyt: 11-11-2022 End: 45-35-4823jhgdvdutkfPQOGO PARKERFacility:V7Fruxv: 04-14-2022 End: 22-07-1784ccqbjbltdlBY SHALONDA CARLOS .Facility:Z0Imjtq: 04-04-2022 End: 41-38-2843lfzscpwvfgIN SHALONDA CARLOS .Facility: Payers DatePayer CategoryPayerPolicy [id number] Clinical Note 04-14-2022 Note Date & EfmuUcrjKifmdipp30-71-8228 NoteEXAMINATION: XR FOREIGN BODY EYE HISTORY: Screening procedure COMPARISON: No relevant comparison available. FINDINGS: ORBITS: Negative for a metallic foreign body. OTHER: Negative. IMPRESSION: No metallic foreign bodies in the orbits Electronically authenticated by: QUOC OWENS Date: 2022-04-14 14:06[facility] Summary Purpose Family History No Family History Records FoundNo Family History Records FoundNo Family History Records FoundNo Family History Records Found Advance Directives No Advanced Directives Records FoundNo Advanced Directives Records FoundNo Advanced Directives Records FoundNo Advanced Directives Records Found Additional Source Comments (unrecognized sect ion and content) No Status Records FoundNo Status Records FoundNo Status Records FoundNo Status Records Found INFORMATION SOURCE (unrecogn ized section and content) DATE CREATED AUTHOR 03/04/2022 [facility] DATE CREATED AUTHOR AUTHOR'S ORGANIZ ATION 03/02/2023 [facility] DATE CREATED AUTHOR AUTHOR'S ORGANIZ ATION 08/19/2025 [facility] DATE CREATED AUTHOR AUTHOR'S ORGANIZ ATION 08/20/2025 [facility] FOR RECORDS PERTAINING TO PATIENTS WHO ARE [...] BE BASED ON THE PRIMARY CLINICAL RECORDS. [employer] provides no warranty or guarantee of the accuracy or completeness of information in this document.
--- NOTE | 2025-09-09 15:05 | MR_ITS ---
The [place] [id number] Patient Name: NARENDRA MEDEROS MRN: [id number] date: 1970 Sex: M Assigned Patient Location: [facility] Current Patient Location: [facility] Accession/Order Number: [id number] Exam Date: 09/09/2025 15:35 Report Date: 09/09/2025 16:42 At the request of: SHALONDA CARLOS MD Procedure: MR abdomen wo con MRI OF THE ABDOMEN WITHOUT CONTRAST: CLINICAL HISTORY: Left flank pain. Left kidney abnormality. COMPARISON: CT abdomen and pelvis 09/14/2021 MRI lumbar spine 04/14/2022 TECHNIQUE: Multisequence, multiplanar imaging of the abdomen was obtained without the use of IV contrast. FINDINGS: Suboptimal evaluation due to lack of IV contrast. The liver appears normal in contour without evidence of steatosis or intrahepatic ductal dilatation. No T2 hyperintense lesion is seen to suggest mass. Gallbladder appears unremarkable. No CBD dilatation. Pancreas is grossly unremarkable. Spleen is grossly unremarkable. Adrenal glands are grossly unremarkable. Aorta appears normal in caliber. No bulky lymphadenopathy or ascites. No pleural effusion. Right kidney appears unremarkable. Predominantly T2 hyperintense cysts with likely small hemorrhagic/proteinaceous component superior pole of the left kidney grossly unchanged in size from the prior lumbar spine MRI measuring 1.2 cm in greatest axial dimension. MR/MR abdomen wo con IMPRESSION: STABLE 1.2 CM PRESUMED CYST WITH SMALL HEMORRHAGIC/PROTEINACEOUS LIKE COMPARED TO THE PRIOR MRI STUDY FROM 2021 SUGGESTING A BENIGN PROCESS. Impression dictated by: Malachi Kelsey Jr., D.O. 09/09/2025 4:42 PM Dictation Location: [place] [address] Electronically authenticated by: [id number] Y Date: 09/09/2025 16:42
--- NOTE | 2025-09-09 15:06 | XR_ITS ---
The [place] [id number] Patient Name: NARENDRA MEDEROS MRN: [id number] date: 1970 Sex: M Assigned Patient Location: RAD Current Patient Location: [facility] Accession/Order Number: [id number] Exam Date: 09/09/2025 15:10 Report Date: 09/09/2025 15:32 At the request of: SHALONDA CARLOS MD Procedure: XR foreign body eye FRANK 2 views orbits INDICATION: MRI clearance COMPARISON: 04/14/2022 FINDINGS/IMPRESSION: No radiopaque metallic foreign body within the orbits. There are dental fillings identified. Impression dictated by: Milton Connor M.D. 09/09/2025 3:32 PM Dictation Location: [place] [place] [address] Electronically authenticated by: [id number] Y Date: 09/09/2025 15:32
== END 2025-09-09 14:51 | disposition home or self-care (01) ==
LOC: RAD 14:51
PROVIDERS: PCP Family Medicine; Visit Provider Family Medicine
DX: Z01.818 Encounter for other preprocedural examination (principal); N28.89 Other specified disorders of kidney and ureter
CPT/HCPCS: 70030; 74181